=== PATIENT | male | born 1960 | race Two or more races ===

== ENCOUNTER 2024-01-14 11:00 | Outpatient (RCR) | payer MEDICAID, SELFPAY ==
--- NOTE | 2024-01-14 12:42 | CTCFLWUP_ITS ---
[facility] [address] [place], [place] [address] FOLLOW-UP NOTE Date: 01/14/2024 MR#: [id number] Name: JAMIE QUILES : 1960 Dx: M89.8X9 Other specified disorders of bone, unspecified site Identification. Patient with hypertension diabetes end-stage renal disease on hemodialysis for many years admitted to [facility] June 2023. Please see consult June 1623. It was noted that patient had ostial lesion of cranial vault hips right greater than left with mild a nemia of 10.5 elevated creatinine 8.2 EGFR 6 receiving dialysis. PTH considerably elevated 879 on and PSA low at 0.15. SPEP 07/10/2023 did not show significant abnormalities and no monoclonal proteins detected by immunofi xation studies. Bone survey 07/11/2023 subtle radiolucency in the intertrochanteric sup trochanteric regions both hips cranial vault and in sup trochanteric region right hip 26 mm. Due to renal failure imaging studies done without contrast with lumbar vertebral bodies pelvis showin g subtle radiolucency in skeletal survey as well as CT MRI. Repeat bone survey 12/19/2023 shows small circumscribed osteolytic lesions 3 mm 6 mm distal right hum erus, and absence of previously seen radiolucency in the trochanteric regions of both hips cranial va ult and right hip. Most recent labs including SPEP 12/25/2023 revealed mild elevation of alpha-1 globulin beta-2 globuli n and gammaglobulin. Beta-2 microglobulin's at 29.3 increased above normal with somewhat elevated im munoglobulin G and A. Patient appears reasonably comfortable not on any pain meds according to daughters present. Has good range of motion and can walk hesitantly but adequately. Assessment. 1. 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 2. Subtle bony lesions osteolytic type noted in cranial vault right hip sup trochanteric regions of both hips on admission in June this year.. Repeat bone survey 12/19/2023 shows general improvement wi th subtle lytic lesion in distal right humerus. 3. SPEP July 10, 2023 slight increase in alpha-1 globulin repeat 12/25/2023 mild elevation of alpha-1 globulin beta-2 globulin and gammaglobulin. No monoclonal proteins detected by immunofixation st udies and beta-2 microglobulin was elevated at 29.30. 4. Would like to have Dr. Copeland rn new graduate see this patient. Cc: Lavelle Verma MD Electronically signed by: Scottie Chadwick M.D. 01/14/2024 12:40 PM
== END 2024-01-25 23:59 | disposition home or self-care (01) ==
LOC: SCTC 11:00
PROVIDERS: PCP Family Medicine; Referring Provider Family Medicine; Visit Provider Radiology Therapeutic Radiology
DX: M89.8X8 Other specified disorders of bone, other site (principal); I12.0 Hypertensive chronic kidney disease with stage 5 chronic kidney disease or end stage renal disease; E11.22 Type 2 diabetes mellitus with diabetic chronic kidney disease; N18.6 End stage renal disease; Z99.2 Dependence on renal dialysis; R77.1 Abnormality of globulin
CPT/HCPCS: 99213; G0463

== ENCOUNTER → 2024-02-10 | Outpatient (CLI) | payer MEDICAID, SELFPAY ==
[2024-02-10 08:32] LABS: Basophils % (Auto) 1 % (0-2.5); Eosinophils # (Auto) 0.1 Thou/mm3 (0.0-0.5); Eosinophils % (Auto) 2 % (0-10); Hematocrit 43.6 % (41.0-53.0); Immature Granulocytes % (Auto) 0 % (0-0); Immature Granulocytes Auto 0.01 Thou/mm3 (0.00-0.00); Lymphocytes # (Auto) 0.8 Thou/mm3 (1.0-4.8); Lymphocytes % (Auto) 15 % (10-50); Mean Corpuscular HGB Conc 32.1 g/dl (31.0-37.0); Mean Corpuscular Hemoglobin 32.8 pg (25.0-35.0); Mean Corpuscular Volume 102 fL (80-100); Monocytes # (Auto) 0.3 Thou/mm3 (0.0-0.8); Monocytes % (Auto) 6 % (0-12); Neutrophils % (Auto) 77 % (37-80); Nucleated Red Blood Cell % 0 /100 WBC (0); Platelet Count 132 Thou/mm3 (140-440); RDW Standard Deviation 58.2 fL (35.1-43.9); Red Blood Count 4.27 Miln/mm3 (4.50-5.90); White Blood Count 5.3 Thou/mm3 (3.8-10.6)
[2024-02-10 08:35] LABS: INR 1.1 (0.9-1.3); Prothrombin Time 12.1 Seconds (9.0-12.2)
[2024-02-10 09:07] LABS: Albumin, Serum 3.8 gm/dL (3.4-4.8); Anion Gap 12 (7-16); BUN/Creatinine Ratio 8 Ratio (12-20); Blood Urea Nitrogen 75 mg/dL (9-23); Calcium 8.8 mg/dL (8.3-10.6); Carbon Dioxide 24.7 mMol/L (20.0-31.0); Chloride 96 mMol/L (98-107); Creatinine (Component) 9.5 mg/dL (0.6-1.3); Glucose 107 mg/dL (74-106); Osmolality,Calculated 288 (275-295); Phosphorous 6.6 mg/dL (2.4-5.1); Sodium 133 mMol/L (136-145); eGFR 6 See Note
== END | disposition home or self-care (01) ==
LOC: COPL 07:37
PROVIDERS: PCP Student in an Organized Health Care Education/Training Program; Referring Provider Internal Medicine Cardiovascular Disease; Visit Provider Internal Medicine Cardiovascular Disease
DX: I48.3 Typical atrial flutter (principal)
CPT/HCPCS: 36415; 80069; 85025; 85610

== ENCOUNTER 2024-02-11 08:47 | Outpatient (RCR) | payer MEDICAID, SELFPAY ==
--- NOTE | 2024-03-02 16:33 | CTCCONSULT_ITS ---
Patient: JAMIE QUILES : 1960 MR#: [id number] Page 2 of 3 CONSULTATION NOTE DATE OF CONSULTATION: 02/11/2024 NAME: JAMIE QUILES ACCOUNT: [id number] : 1960 AGE: 63 REFERRING PHYSICIAN: Dianne Lopez MD PRIMARY PHYSICIAN: Dianne Lopez MD REASON FOR VISIT: Osteolytic lesions suspicion for cancer ONCOLOGY HISTORY: DIAGNOSIS: Other specified disorders of bone, unspecified site [ICD10] M89.8X9 DATE OF DIAGNOSIS: No confirmed diagnosis STAGE/TNM: TREATMENT HISTORY: Care?Plan Start?Date Cycle Day Intent HISTORY OF PRESENT ILLNESS: 63-year-old male OTHER MEDICAL HISTORY/CONDITIONS: diabetic??end?stage?renal??chf fistula left arm eye lasic surg gallbladder FAMILY HISTORY: Patient?denies?family?cancer?history. SOCIAL HISTORY: Occupational?History:?disabled Education?Level:?Completed High School Marital?Status:? Tobacco?Pack?per?Day:?1 Tobacco?Use?Years:?15 ETOH Use:?etoh issues 15 clean / 13 yrs Drug?Note:?gladys Social History Note:?lives with his mother MEDICATIONS: 1. amlodipine - 5 mg 1 tab Twice a Day 2. CINACALCET HCL - 90 mg Daily 3. Eliquis - 2.5 mg Twice a Day 4. gabapentin - 800 mg 1 tab Twice a Day 5. metoprolol succinate - 25 mg Daily 6. sevelamer carbonate - 800 mg 1 tab Daily 7. Vitamin D3 - 1,000 unit 1 tab Daily Medications Last Reconciled by Kelli Snider RN on 02/11/2024 ALLERGIES: VANCOMYCIN HCL REVIEW OF SYSTEMS: A complete 14-point review of systems was performed and is negative except as noted in interval histo ry. PHYSICAL EXAMINATION: VITAL SIGNS: Temperature?96.7, B/P?130/83, Height?63?inches, Oxygen?Saturation?97% PAIN: 6 - Severe pain ECOG Performance Status: 0 - Asymptomatic and fully active GENERAL APPEARANCE: Appears well, in no apparent distress, appropriately interactive. HEENT: Normocephalic, no temporal wasting, normal conjunctiva, no scleral icterus, normal hearing, li ps without lesions, neck normal range of motion. CARDIOVASCULAR: Not assessed. PULMONARY: Normal respiratory effort, no respiratory distress or use of accessory muscles, speaking i n full sentences, no tachypnea. EXTREMITIES: No pedal edema or cyanosis. SKIN: Normal skin appearance. NEUROLOGIC: Alert and oriented x4. PSHYCHIATRIC: Appropriate affect, mood normal, behavior normal, intact thought and speech. LABORATORY DATA: I have personally reviewed and interpreted each of the patient?s relevant lab tests, abnormal finding s are below: Date 02/20/24 ??RETICULOCYTE?ABSOLUTE?AUTO?(Biln/L) 82.6?H ASSESSMENT/PLAN: Osteolytic lesions concerning for multiple myeloma Patient have osteolytic lesions on the CT scans Patient do not have confirmed diagnosis There is no paraproteinemia Will evaluate to see any underlying malignancy PET CT scan SPEP and serum amino pheresis Ferritin iron panel and reticulocyte count B12 and folic acid Bone marrow biopsy to evaluate for myeloma Bone marrow biopsy RETURN TO CLINIC: 2 to 3 weeks with the results BILLING AND COMPLIANCE: I reviewed external records from providers outside my specialty as summarized above. I spent a total of 50 minutes on this patient?s care on the day of their visit excluding time spent related to any bi lled procedures. This time includes time spent with the patient as well as time spent documenting in the medical record, reviewing patients records and tests, obtaining history, placing orders, communi cating with other healthcare professionals, counseling the patient, family or caregiver, and/or care coordination for the diagnoses above. Electronically Signed by: Jose C Craig MD T: 4:31 PM CC: PCP: Dianne Lopez Referring: Dianne Lopez This document was completed utilizing speech recognition software. Grammatical errors, random word in sertions, pronoun errors, and incomplete sentences are an occasional consequence of this system due t o software limitations, ambient noise, and hardware issues. Any formal questions or concerns about th e content, text or information contained within the body of this dictation should be directly address ed to the provider for clarification.
== END 2024-02-25 23:59 | disposition home or self-care (01) ==
LOC: SCTC 08:47
PROVIDERS: PCP Student in an Organized Health Care Education/Training Program; Referring Provider Student in an Organized Health Care Education/Training Program; Visit Provider Internal Medicine Hematology & Oncology
DX: M89.50 Osteolysis, unspecified site (principal)
CPT/HCPCS: 99212; G0463

== ENCOUNTER → 2024-02-20 | Outpatient (CLI) | payer MEDICAID, SELFPAY ==
[2024-02-20 11:16] LABS: Basophils % (Auto) 1 % (0-2.5); Eosinophils # (Auto) 0.1 Thou/mm3 (0.0-0.5); Eosinophils % (Auto) 2 % (0-10); Hemoglobin 13.6 g/dL (13.5-16.0); Immature Granulocytes % (Auto) 0 % (0-0); Immature Granulocytes Auto 0.02 Thou/mm3 (0.00-0.00); Immature Reticulocyte Fraction 21.3 % (2.3-13.4); Lymphocytes # (Auto) 1.1 Thou/mm3 (1.0-4.8); Lymphocytes % (Auto) 20 % (10-50); Mean Corpuscular HGB Conc 31.6 g/dl (31.0-37.0); Mean Corpuscular Hemoglobin 32.8 pg (25.0-35.0); Mean Corpuscular Volume 104 fL (80-100); Monocytes # (Auto) 0.3 Thou/mm3 (0.0-0.8); Monocytes % (Auto) 6 % (0-12); Neutrophils % (Auto) 71 % (37-80); Nucleated Red Blood Cell % 0 /100 WBC (0); Platelet Count 139 Thou/mm3 (140-440); RDW Standard Deviation 57.5 fL (35.1-43.9); Red Blood Count 4.15 Miln/mm3 (4.50-5.90); Reticulocyte Absolute Auto 82.6 Biln/L (25.0-75.0); Reticulocyte Hgb Content 39.6 pg (28.0-35.0); White Blood Count 5.6 Thou/mm3 (3.8-10.6)
[2024-02-20 11:42] LABS: Alanine Aminotransferase 13 U/L (10-49); Albumin/Globulin Ratio 1.1 (1.2-2.2); Alkaline Phosphatase 146 U/L (46-116); Anion Gap 14 (7-16); Aspartate Amino Transferase 19 U/L (0-34); BUN/Creatinine Ratio 6 Ratio (12-20); Bilirubin,Total 0.3 mg/dL (0.3-1.2); Blood Urea Nitrogen 56 mg/dL (9-23); Calcium 8.8 mg/dL (8.3-10.6); Calcium (Corrected) 8.8 mg/dL (8.5-10.1); Carbon Dioxide 21.6 mMol/L (20.0-31.0); Chloride 97 mMol/L (98-107); Creatinine (Component) 8.7 mg/dL (0.6-1.3); Globulin 3.5 gm/dL (2.3-3.5); Glucose 140 mg/dL (74-106); Osmolality,Calculated 283 (275-295); Potassium 4.9 mMol/L (3.4-5.1); Sodium 133 mMol/L (136-145); Total Protein 7.5 gm/dL (5.7-8.2); eGFR 6 See Note
[2024-02-20 11:44] LABS: Folate 7.94 ng/mL (>5.38); Vitamin B12 596 pg/mL (211-911)
[2024-02-20 11:58] LABS: Ferritin 1569 ng/mL (10.5-307.3); Total Iron Binding Capacity 211 mcg/dL (250-425)
[2024-02-20 12:14] LABS: Iron 86 mcg/dL (65-175); Percent Iron Saturation 40 % (20-55); Unsaturated Iron Binding 125 (225-295)
[2024-02-28 15:37] LABS: Albumin 3.6 g/dL (3.8-4.8); Alpha-1-Globulin 0.4 g/dL (0.2-0.3); Alpha-2-Globulin 0.6 g/dL (0.5-0.9); Beta-1-Globulin 0.4 g/dL (0.4-0.6); Beta-2-globulin 0.6 g/dL (0.2-0.5); Gamma Globulin 1.7 g/dL (0.8-1.7); Kappa Light Chain, Free 470.8 mg/L (3.3-19.4); Lambda Light Chain, Free 244.8 mg/L (5.7-26.3)
[2024-03-02 06:45] LABS: Kappa/Lambda, Free Ratio 1.92 (0.26-1.65); Protein, total, serum 7.2 g/dL (6.1-8.1)
== END | disposition home or self-care (01) ==
LOC: SCTO 10:36
PROVIDERS: PCP Physician Assistant; Referring Provider Internal Medicine Hematology & Oncology; Visit Provider Internal Medicine Hematology & Oncology
DX: M89.8X9 Other specified disorders of bone, unspecified site (principal)
CPT/HCPCS: 36415; 80053; 82232; 82607; 82728; 82746; 83521; 83540; 83550; 84155; 84165; 85025; 85046; 86334

== ENCOUNTER → 2024-03-16 | Outpatient (CLI) | payer MEDICAID, SELFPAY ==
[2024-03-16 14:57] LABS: Immature Reticulocyte Fraction 24.6 % (2.3-13.4); Reticulocyte % (Auto) 2.2 % (0.5-1.5); Reticulocyte Absolute Auto 87.7 Biln/L (25.0-75.0); Reticulocyte Hgb Content 36.3 pg (28.0-35.0)
[2024-03-16 15:16] LABS: Vitamin B12 670 pg/mL (211-911)
[2024-03-16 15:33] LABS: Ferritin 1567 ng/mL (10.5-307.3); Total Iron Binding Capacity 245 mcg/dL (250-425)
[2024-03-16 15:42] LABS: Iron 128 mcg/dL (65-175); Percent Iron Saturation 52 % (20-55); Unsaturated Iron Binding 117 (225-295)
[2024-03-17 03:11] LABS: Folate 9.48 ng/mL (>5.38)
[2024-03-24 13:49] LABS: Alpha-1-Globulin 0.4 g/dL (0.2-0.3); Alpha-2-Globulin 0.6 g/dL (0.5-0.9); Beta-1-Globulin 0.4 g/dL (0.4-0.6); Beta-2-globulin 0.5 g/dL (0.2-0.5); Gamma Globulin 1.8 g/dL (0.8-1.7); Lambda Light Chain, Free 257.2 mg/L (5.7-26.3)
[2024-03-25 06:44] LABS: Kappa/Lambda, Free Ratio 1.57 (0.26-1.65); Protein, total, serum 7.7 g/dL (6.1-8.1)
== END | disposition home or self-care (01) ==
LOC: SCTO 14:08
PROVIDERS: PCP Physician Assistant; Referring Provider Internal Medicine Hematology & Oncology; Visit Provider Internal Medicine Hematology & Oncology
DX: M89.8X9 Other specified disorders of bone, unspecified site (principal)
CPT/HCPCS: 36415; 82232; 82607; 82728; 82746; 83521; 83540; 83550; 84155; 84165; 85046; 86334

== ENCOUNTER → 2024-03-18 | Outpatient (CLI) | payer MEDICAID, SELFPAY ==
--- NOTE | 2024-03-18 10:30 | XR_ITS ---
Examination: MRI brain with intravenous contrast TECHNIQUE: Multiple axial sagittal coronal brain MRI images post intravenous administration 18 cc gadolinium Exam date and time: March 18, 2024 12:20 PM INDICATIONS: Diagnosis of the specified disorders of bone, diagnosis West Nile virus disease FINDINGS: Ventricles are normal in size No mass effect upon the ventricular system No effacement cortical sulcal markings The pituitary is not enlarged No abnormal enhancing cerebellar or cerebral lesions Cranial vault appears intact No disruption of the optic chiasm is noted IMPRESSION: No abnormal enhancing cerebellar or cerebral lesions
== END | disposition home or self-care (01) ==
LOC: SMRI 03-19 08:04
PROVIDERS: Referring Provider Internal Medicine Hematology & Oncology; Visit Provider Internal Medicine Hematology & Oncology
DX: M89.8X9 Other specified disorders of bone, unspecified site (principal)
CPT/HCPCS: 70552; A9579

== ENCOUNTER 2024-03-20 15:27 | Inpatient (IN) | payer MEDICAID, SELFPAY ==
[2024-03-20 15:28] VITALS: BMI 37.8
[2024-03-20 16:15] VITALS: BP 117/78; PULSE 96; RESP 18; TEMP 37.4; O2SAT 96
--- NOTE | 2024-03-20 16:37 | XR_ITS ---
Examination: CT brain head without contrast. 2-D sagittal coronal reconstructions Date and time of exam:March 20, 2024 at 1727 hours INDICATIONS: Dizziness episodes today COMPARISON: October 14, 2023 CTDI: vol (mGy):51.1 DLP: (mGycm):1044 Technique: Multiple CT axial sections of the brain have been obtained, 5 mm slice thickness. Contrast has not been administered. 2-D sagittal, coronal reconstructions have been obtained Low dose protocols were performed. One or more of the following dose reduction techniques were used; automated exposure control, adjustment of the mA and/or KV according to patient size, use of iterative reconstruction technique. Findings: No significant ventricular enlargement. 15 mm age indeterminate infarct left cerebellar hemisphere, axial image 34, not seen on the CT brain scan October 14, 2023 Intra-axial or extra-axial hemorrhage density is not seen. No mass effect or midline shift Basal cisterns are not remarkable. Fourth ventricle is midline. Cranial vault intact. Impression: Negative for acute hemorrhage, mass effect or midline shift Age indeterminate infarct left cerebellar hemisphere, consider brain MRI MRA without contrast, stroke protocol, follow-up
--- NOTE | 2024-03-20 16:37 | EDRME_ITS ---
Rapid Medical Screening Exam [facility] Arrival date/time: 03/20/24 15:27 63-year-old male presents emergency department with complaints of syncopal episode today status post dialysis. Also complaining of shortness of breath and chest pain. I have greeted and performed a focused initial assessment of this patient. I nitial appropriate labs ordered at this time. A comprehensive ED assessment and evaluation of the patient and analysis of all test and completion of medical decision making process will be conducted by additional ED provider. Chief Complaint: Weakness Time Seen by Provider: 03/20/24 15:40 Vital signs: Vital Signs Temperature 99.3 F 03/20/24 16:15 Pulse Rate 96 03/20/24 16:15 Respiratory Rate 18 03/20/24 16:15 Blood Pressure 117/78 03/20/24 16:15 Pulse Oximetry (%) 96 03/20/24 16:15 Oxygen Delivery Method Nasal Cannula 03/20/24 16:15 Oxygen Flow Rate 3 03/20/24 16:15
--- NOTE | 2024-03-20 16:37 | EKG_ITS ---
[facility] Test Date: 2024-03-20 Pat Name: JAMIE QUILES Department: Room: - Gender: Male Rn Labor Delivery: : 1960 Requested By: Becky Ellis ([facility]) Aryan Order Number: [id number] Reading MD: Becky Ellis ([facility]) Aryan Measurements Intervals [place] Rate: 97 P: NV: QRS: -46 QRSD: 98 T: 134 QT: 373 QTc: 474 Interpretive Statements SINUS RHYTHM WITH 2ND DEGREE AV BLOCK, MOBITZ TYPE II MARKED LEFT AXIS DEVIATION [QRS AXIS < -30] ANTEROSEPTAL MYOCARDIAL INFARCTION , OF INDETERMINATE AGE [40+ ms Q WAVE IN V1-V4] MODERATE T-WAVE ABNORMALITY, CONSIDER LATERAL ISCHEMIA [-0.1+ mV T WAVE IN I/aVL/V5/V6] Compared to ECG 11/02/2023 15:18:24 Left-axis deviation now present Atrial fibrillation no longer present Myocardial infarct finding still present T-wave abnormality still present Possible ischemia still present /store/S0/[id number]/ecg/[id number].pdf
--- NOTE | 2024-03-20 16:37 | XR_ITS ---
Examination: PA chest single view TECHNIQUE: Upright PA chest single view Exam date and time: March 20, 2024 at 1657 hours Comparison August 01, 2023 INDICATIONS: Syncopal episode today FINDINGS: Mild heart failure Mild enlargement cardiac contour with central vascular congestion and prominent overall vascular congestion Pneumonia at the lung bases with moderate to large bilateral pleural effusions Right internal jugular dialysis catheter tips SVC satisfactory position IMPRESSION: Mild heart failure Bibasilar pneumonia
[2024-03-20 16:56] LABS: Basophils % (Auto) 0 % (0-2.5); Eosinophils # (Auto) 0.1 Thou/mm3 (0.0-0.5); Eosinophils % (Auto) 1 % (0-10); Hematocrit 40.2 % (41.0-53.0); Hemoglobin 13.1 g/dL (13.5-16.0); Immature Granulocytes % (Auto) 0 % (0-0); Immature Granulocytes Auto 0.03 Thou/mm3 (0.00-0.00); Lymphocytes # (Auto) 0.6 Thou/mm3 (1.0-4.8); Lymphocytes % (Auto) 6 % (10-50); Mean Corpuscular HGB Conc 32.6 g/dl (31.0-37.0); Mean Corpuscular Hemoglobin 33.7 pg (25.0-35.0); Mean Corpuscular Volume 103 fL (80-100); Monocytes % (Auto) 10 % (0-12); Neutrophils % (Auto) 82 % (37-80); Nucleated Red Blood Cell % 0 /100 WBC (0); Platelet Count 120 Thou/mm3 (140-440); RDW Standard Deviation 57.7 fL (35.1-43.9); Red Blood Count 3.89 Miln/mm3 (4.50-5.90); White Blood Count 9.7 Thou/mm3 (3.8-10.6)
[2024-03-20 17:16] LABS: Alanine Aminotransferase 10 U/L (10-49); Albumin/Globulin Ratio 1.1 (1.2-2.2); Alkaline Phosphatase 157 U/L (46-116); Anion Gap 8 (7-16); Aspartate Amino Transferase 13 U/L (0-34); BUN/Creatinine Ratio 6 Ratio (12-20); Bilirubin,Total 0.4 mg/dL (0.3-1.2); Blood Urea Nitrogen 34 mg/dL (9-23); Calcium 8.6 mg/dL (8.3-10.6); Calcium (Corrected) 8.6 mg/dL (8.5-10.1); Chloride 94 mMol/L (98-107); Creatinine (Component) 5.9 mg/dL (0.6-1.3); Globulin 3.8 gm/dL (2.3-3.5); Glucose 166 mg/dL (74-106); Osmolality,Calculated 274 (275-295); Potassium 5.2 mMol/L (3.4-5.1); Sodium 131 mMol/L (136-145); Total Protein 7.8 gm/dL (5.7-8.2); eGFR 10 See Note
[2024-03-20 18:16] LABS: INR 1.2 (0.9-1.3); Partial Thromboplastin Time 29.3 Seconds (22.0-36.0); Prothrombin Time 12.7 Seconds (9.0-12.2)
[2024-03-20 21:58] LABS: Troponin I 0.085 ng/mL (0.0-0.045)
[2024-03-20 21:59] VITALS: BP 81/66; PULSE 98; RESP 24; O2SAT 92
--- NOTE | 2024-03-20 22:08 | PD.EDWEAK ---
ED Weakness RME/HPI General Chief complaint: Weakness Stated complaint: Weakness, SOB, CP, after dialysis today Time Seen by Provider: 03/20/24 15:40 Arrival date/time: 03/20/24 15:27 Limitations: no limitations RME / HPI RME / HPI Narrative: 03/20/24 15:27 63-year-old male presents emergency department with complaints of syncopal episode today status post dialysis. Also complaining of shortness of breath and chest pain. I have greeted and performed a focused initial assessment of this patient. Initial appropriate labs ordered at this time. A comprehensive ED assessment and evaluation of the patient and analysis of all test and completion of medical decision making process will be conducted by additional ED provider. ------- Dr. Dominguez's Main ED Evaluation: 63yo male with a history of ESRD on HD (MWF), DM, HTN, HLD, CAD s/p CABG with stents placed 07/2023, on 2L/O2 presents to the ED for a chief complaint of generalized weakness. Patient was dialyzed today. Daughter at bedside reports the patient's legs gave out at home after dialysis, reporting she caught him. No falls or injuries. Daughter was concerned, so she brought Patient reports associated chest pain x 2 months and a cough x 1 month. Daughter states the patient wears oxygen 17/09 due to being out of breath when he ambulates. No fever, chills or any other associated symptoms. Patient is not on blood thinners. Red Lead Burner is Dr. Reagan. Discount Clerk is Dr. Verma. Daughter notes the patient had an ablation on 03/12/24. Related Data Home Medications ?Medication ?Instructions ?Recorded ?Confirmed gabapentin 400 mg capsule 400 mg PO BID PAIN 08/03/19 11/02/23 acetaminophen 325 mg tablet 650 mg PO QDAY 10/19/23 11/02/23 (Tylenol) albuterol sulfate 2.5 mg/3 mL 2.5 mg inhalation Q4H PRN SOB 10/19/23 11/02/23 (0.083 %) solution for nebulization amiodarone 200 mg tablet 200 mg PO QDAY 10/19/23 10/28/23 atorvastatin 40 mg tablet (Lipitor) 40 mg PO QDAY 10/19/23 11/02/23 famotidine 20 mg tablet (Pepcid) 20 mg PO QDAY 10/19/23 11/02/23 insulin glargine 100 unit/mL 10 unit subcut QPM 10/19/23 11/02/23 subcutaneous solution insulin lispro 100 unit/mL 1 sliding scale dose subcut 10/19/23 11/02/23 subcutaneous solution (Humalog USEASDIRECTD U-100 Insulin) melatonin 3 mg tablet 3 mg PO HS PRN sleep 10/19/23 11/02/23 folic acid 400 mcg tablet 0.4 mg PO QDAY 10/28/23 11/02/23 ascorbic acid (vitamin C) 500 mg 500 mg PO QDAY 11/02/23 11/02/23 tablet Previous Rx's ?Medication ?Instructions ?Recorded ferrous sulfate 325 mg (65 mg 325 mg PO QDAY 1 month #30 tabs 10/19/23 iron) tablet Allergies Allergy/AdvReac Type Severity Reaction Status Date / Time vancomycin Allergy Severe Hives Verified 03/11/24 09:45 Review of Systems Review of Systems Systems Reviewed: All systems reviewed, normal except as documented ED Exam General Limitations: Present no limitations General appearance: Present alert and in no apparent distress Head Head exam: Present atraumatic Eye Eye exam: Present normal appearance, PERRL and EOMI ENT ENT exam: Present normal exam, normal oropharynx and mucous membranes moist Neck Neck exam: Present normal inspection, full ROM and trachea midline Chest Chest inspection: Present normal inspection and symmetric chest wall rise Respiratory Respiratory exam: Present normal lung sounds bilaterally Cardiovascular Cardiovascular exam: Present regular rate, normal rhythm and normal heart sounds Abdominal Exam Abdominal exam: Present soft and normal bowel sounds Extremities Exam Extremities exam: Present normal inspection and full ROM Back Exam Back exam: Present normal inspection and full ROM Neurological Exam Neurological exam: Present alert, oriented X3 and CN II-XII intact Psychiatric Psychiatric exam: Present normal affect and normal mood Skin Skin exam: Present warm, dry, intact and normal color Course Course Course Narrative: CXR is ordered for determining the etiology of weakness. Quality Measures none Orders Category Date Time Status Bedside Blood Glucose NOW Care 03/20/24 16:37 Active Photographer Scientific STAT Care 03/20/24 16:37 Active EKG (ED ONLY) *Do not use* NOW Care 03/20/24 16:[address] head/brain wo con Stat Exams 03/20/24 16:37 Completed EKG (ED Only) Stat Exams 03/20/24 16:37 Draft XR chest 1V portable Stat Exams 03/20/24 16:37 Completed CBC Stat Lab 03/20/24 16:48 Completed Comprehensive Metabolic Panel Stat Lab 03/20/24 16:48 Completed Drug Screen,Urine Stat Lab 03/20/24 16:37 Ordered Partial Thromboplastin Time Stat Lab 03/20/24 16:48 Completed Prothrombin Time with INR Stat Lab 03/20/24 16:48 Completed Troponin I Stat Lab 03/20/24 16:48 Completed Troponin I Stat Lab 03/20/24 21:14 Completed Vital Signs Vital signs: Vital Signs Temperature 99.3 F 03/20/24 16:15 Pulse Rate 96 03/20/24 16:15 Respiratory Rate 18 03/20/24 16:15 Blood Pressure 117/78 03/20/24 16:15 Pulse Oximetry (%) 96 03/20/24 16:15 Oxygen Delivery Method Nasal Cannula 03/20/24 16:15 Oxygen Flow Rate 3 03/20/24 16:15 Weakness MDM Narrative MDM Narrative:: HEART Score is 6, indicating the patient is at moderate risk for a cardiac event. Patient should be admitted for observation. Will consult an admission to the hospitalist. Patient data External records reviewed:: [facility] previous records (Per chart review, patient was seen here on 11/01/23 for acute hypotension.) Clinical information provided by:: patient Social determinants that could affect healthcare access:: none Patient has the following chronic illnesses:: type 2 diabetes mellitus, HTN, HLD, hypothyrodism, ESRD (MWF), and HFpEF 60%-65%, CAD post CABG with stents How is presenting disease/condition affected by chronic disease/condition?: caused by Evaluation data The following diagnostics were reviewed and interpreted by me:: lab results, radiology exam(s) and EKG tracing(s) Lab and/or radiology exams considered but not ordered:: none Interpretation Summary: CBC is normal, Sodium is slightly low at 131, Potassium is slightly elevated at 5.2, Creatinine is elevated at 5.9, Glucose is 166, initial troponin is elevated at 0.080, repeat troponin is 0.085, according to my interpretation. EKG done at 1643, NSR, rate of 97, nonspecific ST-T wave changes in the lateral leads, QTc: 474, no longer in aFib compared to previous EKG in 10/2023, according to my interpretation. ------ [facility] Report Signed Patient: JAMIE QUILES [facility]. Record#: [id number] Birthdate: 1960 Age/Sex: 63 / M Location: [facility]X Attending Dr: Ordering Physician: Becky Ellis Date of Service: 03/20/24 Procedure(s): XR chest 1V portable Accession Number(s): [id number] cc: Tez Peters MD; Becky Ellis~ Examination: PA chest single view TECHNIQUE: Upright PA chest single view Exam date and time: March 20, 2024 at 1657 hours Comparison August 01, 2023 INDICATIONS: Syncopal episode today FINDINGS: Mild heart failure Mild enlargement cardiac contour with central vascular congestion and prominent overall vascular congestion Pneumonia at the lung bases with moderate to large bilateral pleural effusions Right internal jugular dialysis catheter tips SVC satisfactory position IMPRESSION: Mild heart failure Bibasilar pneumonia Dictated By: Tez Peters MD Signed By: <Electronically signed by Tez Peters MD in OV> 03/20/24 1711 [facility] Report Signed Patient: JAMIE QUILES [facility]. Record#: [id number] Birthdate: 1960 Age/Sex: 63 / M Location: SERX Attending Dr: Ordering Physician: Becky Ellis Date of Service: 03/20/24 Procedure(s): CT head/brain wo con Accession Number(s): [id number] cc: Yared Linares MD; Tez Peters MD; Becky EllisP~ Examination: CT brain head without contrast. 2-D sagittal coronal reconstructions Date and time of exam:March 20, 2024 at 1727 hours INDICATIONS: Dizziness episodes today COMPARISON: October 14, 2023 CTDI: vol (mGy):51.1 DLP: (mGycm):1044 Technique: Multiple CT axial sections of the brain have been obtained, 5 mm slice thickness. Contrast has not been administered. 2-D sagittal, coronal reconstructions have been obtained Low dose protocols were performed. One or more of the following dose reduction techniques were used; automated exposure control, adjustment of the mA and/or KV according to patient size, use of iterative reconstruction technique. Findings: No significant ventricular enlargement. 15 mm age indeterminate infarct left cerebellar hemisphere, axial image 34, not seen on the CT brain scan October 14, 2023 Intra-axial or extra-axial hemorrhage density is not seen. No mass effect or midline shift Basal cisterns are not remarkable. Fourth ventricle is midline. Cranial vault intact. Impression: Negative for acute hemorrhage, mass effect or midline shift Age indeterminate infarct left cerebellar hemisphere, consider brain MRI MRA without contrast, stroke protocol, follow-up Dictated By: Tez Peters MD Signed By: <Electronically signed by Tez Peters MD in OV> 03/20/24 1806 Medications / Prescriptions Medications or Prescriptions considered but not ordered:: none Medication administrations:: see above Consultations Consultation(s) initiated? (list below): Yes Consultation #1 (Physician, Specialty, Details): Discussed case with [Dr. Sainz] from Hospitalist service regarding admission. Discussed patients ED course, exam findings, labs, and radiology results. The Hospitalist [agrees] to accept the patient for admission. Time: 22:27 Diagnosis Weakness Differential Diagnosis: other (arrhythmia, STEMI, ischemia, electrolyte abnormality, CHF) Most likely diagnosis given after review of the tests above:: syncope, chest pain Admission Indicated Admission indicated?: indicated Admission Request Was there a request for admission?: Yes Admission Attestation Admission request attestation: Discussed case with [] from Hospitalist service regarding admission. Discussed patients ED course, exam findings, labs, and radiology results. The Hospitalist [agrees,declines] to accept the patient for admission. Disposition Plan Disposition Plan: Admit Discharge Plan Prescriptions/Referrals Prescriptions/Med Rec: No Action gabapentin 400 MG capsule 400 mg PO BID ascorbic acid (vitamin C) 500 mg Tablet 500 mg PO QDAY atorvastatin [Lipitor] 40 mg Tablet 40 mg PO QDAY acetaminophen [Tylenol] 325 mg Tablet 650 mg PO QDAY insulin glargine 100 unit/mL Solution 10 unit SUBCUT QPM albuterol sulfate 2.5 mg /3 mL (0.083 %) Solution For Nebulization 2.5 mg INHALATION Q4H PRN (Reason: SOB) amiodarone 200 mg Tablet 200 mg PO QDAY melatonin 3 mg Tablet 3 mg PO HS PRN (Reason: sleep) famotidine [Pepcid] 20 mg Tablet 20 mg PO QDAY insulin lispro [Humalog U-100 Insulin] 100 unit/mL Solution 1 sliding scale dose SUBCUT USEASDIRECTD ferrous sulfate 325 mg (65 mg iron) tablet 325 mg PO QDAY 30 Days Qty: 30 1RF Hold Instructions: unable to verify. Re evaluate with PCP folic acid 400 mcg Tablet 0.4 mg PO QDAY Referrals: Yared Linares MD [Primary Care Provider] - In 1 week Problem List Clinical Impression: Syncope, Chest pain Patient/Caregiver Discharge Instructions Print Language: Bol[place]ian
[2024-03-20 22:34] VITALS: BP 102/67; PULSE 98; RESP 19; TEMP 36.9; O2SAT 94
--- NOTE | 2024-03-20 22:55 | PC.NURSE ---
PT BROUGHT TO ER BY FAMILY FOR COMPLAINTS OF WEAKNESS, COUGH AND SOB. PER DAUGHTER AT BEDSIDE PT POSSIBLY PASSED OUT TODAY AFTER DIALYSIS. PT WAS STANDING AND LEGS GOT WEAK AND GAVE OUT. PT REPORTS CHEST HURTS ONLY WHEN COUGHING. COMPLAINTS OF COUGH X3 MONTHS. PT DOES DIALYSIS M-W-F, LAST WENT TODAY.
--- NOTE | 2024-03-20 23:44 | ESHP_ITS ---
Documentation for date of: 03/20/24 HPI History of Present Illness Chief complaint: syncopal episode History of present illness: HPI: Patient is a Kenyan-speaking 63-year-old male. Interview facilitated by registered healthcare photographer helper. Patient is a 63-year-old male with a past medical history significant for ESRD on HD [M/W/F], essential hypertension, insulin-dependent diabetes mellitus type 2, hyperlipidemia, CAD s/p CABG with stents [08/19/2023], HFpEF [60-65%] on 2L home O2 presenting with a chief complaint of a syncopal episode. According to patient's daughter at bedside he went to his dialysis session today and he felt weak after. However he still carried about his daily routine as usual. He went to visit his daughter at his 's house and was sitting in the car talking to her. He said he did not feel well but still proceeded to get out of the car, upon standing he started to feel dizzy and held on to the car for support. Subsequently he took 2 steps forward and his daughter had to catch him as he had fainted. She put him to sit in the car and after approximately 1 minute he regained consciousness, but was confused about what happened. Endorsed dizziness and weakness prior to the event which has now improved. Denies any chest pain/pressure, palpitations, vomiting, diarrhea, sick contacts, fever, headaches. Of note patient had an episode of syncope November 2023 and pneumonia December 2023 for which he was hospitalized for. After his last episode of syncope he was started on midodrine 10 Mg p.o. twice daily. ED course: BP 117/78, pulse 96, RR 18, temp 30 9.3F, SpO2 96% on 3L NC. Labs significant for Hb 13.1, HCT 40.2, NA 131, K5.2, BUN 34, CR 5.9, troponin I 0.08---> 0.085 On imaging chest x-ray significant for bilateral consolidation at bases, pulmonary edema and bibasilar pleural effusion. R IJ catheter in situ. Head CT was negative for any acute hemorrhage, mass effect or midline shift. Age-indeterminate left cerebellar hemisphere infarct. EKG significant for sinus rhythm, second-degree AV block, Q waves in anteroseptal leads. QTc [address] changes. In the ED patient received DuoNebs x 1. Will be admitted for workup and management of syncope and community-acquired pneumonia. Nephrology, Dr Verma consulted. Appreciate recommendations Review of Systems Review of Systems Narrative Review of Systems: GENERAL: Denies fever/chills or diaphoresis. HEENT: Denies headaches or visual changes. Denies discharge. Neuro: Denies unusual weakness or difficulty speaking. CARDIO: Denies chest pain or palpitations. PULM: Has a chronic cough for the past 1 month, baseline SOB worse over the past month GI: Denies abdominal pain, N/V/C/D. Reports having BMs. URO: Denies burning/itching/pain/urinary changes. MSK/EXT/SKIN: Denies joint/skeletal/muscle pain, issues/changes in upper or lower extremities, itchiness, or superficial pain. PSYCH: Cooperative, pleasant mood & affect. The rest of the review of systems is otherwise negative. Past Medical History Past Medical History Comments PMH COMMENT: Past medical history: ? ESRD on HD [M/W/F] ? Insulin-dependent diabetes mellitus type 2 ? Essential hypertension ? Hyperlipidemia ? CAD s/p CABG and stents [08/15/2023] ? Atrial fibrillation s/p ablation 03/12/2024 ? History of West Nile virus 2014 Medication list: ? Gabapentin 800 Mg p.o. daily ? Sevelamer 800 Mg p.o. daily ? Ferrous sulfate 325 Mg p.o. every other day ? Lisinopril 40 Mg p.o. twice daily ? Midodrine 10 Mg p.o. twice daily ? Veltassa 8.4 g p.o. daily ? Atorvastatin 40 Mg p.o. at bedtime ? Aspirin 81 Mg p.o. daily Past surgical history: ? CABG?2023 ? 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 Has 3 kids Tobacco use: Approximately 50-[id number]-[id number] smoking history ETHO use: Denies Illicit drug use: Denies Social History Note: Lives alone with his mother. At baseline ambulates without assistance but sometimes uses a walker. Needs assistance with self-care. Exam Vital Signs Temp Pulse Resp BP Pulse Ox O2 Del Method O2 Flow Rate 98.4 F 98 19 102/67 94 L Nasal Cannula 2 03/20/24 22:34 03/20/24 22:34 03/20/24 22:34 03/20/24 22:34 03/20/24 22:34 03/20/24 22:34 03/20/24 22:34 Narrative Exam Constitutional Alert, oriented x 3 and comfortable. Elderly male, appears much older than his age, on O2 via NC. HEENT Vision grossly intact. Patent nares. Trachea midline Respiratory RIJ catheter in situ, exit site clean, decreased air entry in all lung chin with crackles at bases bilaterally Cardiovascular S1 and S2 audible, RRR. No murmurs carotid bruit. No gross JVD. Abdominal Soft, obese and non tender to palpation in all quadrants. BS + Genitourinary No bladder tenderness, no flank pain. Normal to palpation Musculoskeletal Extremities tone within normal limits. No LE edema. Neurological CN II - XII grossly intact. Extremity motor and sensation grossly intact. Skin Warm, dry and intact. Thrombosed left radial AV fistula Psychiatric Patient has good affect, is cooperative Results: Labs 03/21/24 04:49 03/20/24 16:48 Labs: Short CBC 03/20/24 Range/Units 16:48 WBC 9.7 (3.8-10.6) Thou/mm3 Hgb 13.1 L (13.5-16.0) g/dL Hct 40.2 L (41.0-53.0) % Plt Count 120 L (140-440) Thou/mm3 BMP 03/20/24 16:48 Sodium 131 L Potassium 5.2 H Chloride 94 L Carbon Dioxide 29.0 BUN 34 H Creatinine 5.9 H* Glucose 166 H Calcium 8.6 Cardiac Enzymes 03/20/24 03/20/24 Range/Units 16:48 21:14 Troponin I 0.080 H* 0.085 H* (0.0-0.045) ng/mL Liver Function 03/20/24 Range/Units 16:48 Total Bilirubin 0.4 (0.3-1.2) mg/dL AST 13 (0-34) U/L ALT 10 (10-49) U/L Alkaline Phosphatase 157 H (46-116) U/L Albumin 4.0 (3.4-4.8) gm/dL Quality Measures Quality Measures none Medications Home Medications and Allergies Home Medications ?Medication ?Instructions ?Recorded ?Confirmed ?Type gabapentin 400 mg capsule 400 mg PO BID PAIN 08/03/19 03/21/24 History acetaminophen 325 mg tablet 650 mg PO QDAY 10/19/23 03/21/24 History (Tylenol) albuterol sulfate 2.5 mg/3 mL 2.5 mg inhalation Q4H PRN SOB 10/19/23 03/21/24 History (0.083 %) solution for nebulization amiodarone 200 mg tablet 200 mg PO QDAY 10/19/23 03/21/24 History atorvastatin 40 mg tablet (Lipitor) 40 mg PO QDAY 10/19/23 03/21/24 History famotidine 20 mg tablet (Pepcid) 20 mg PO QDAY 10/19/23 03/21/24 History insulin glargine 100 unit/mL 10 unit subcut QPM 10/19/23 03/21/24 History subcutaneous solution insulin lispro 100 unit/mL 1 sliding scale dose subcut 10/19/23 03/21/24 History subcutaneous solution (Humalog USEASDIRECTD U-100 Insulin) melatonin 3 mg tablet 3 mg PO HS PRN sleep 10/19/23 03/21/24 History folic acid 400 mcg tablet 0.4 mg PO QDAY 10/28/23 03/21/24 History ascorbic acid (vitamin C) 500 mg 500 mg PO QDAY 11/02/23 03/21/24 History tablet Allergies Allergy/AdvReac Type Severity Reaction Status Date / Time vancomycin Allergy Severe Hives Verified 03/11/24 09:45 Assessment & Plan Plan Patient is a 63-year-old male with a past medical history significant for ESRD on HD [M/W/F], essential hypertension, insulin-dependent diabetes mellitus type 2, hyperlipidemia, CAD s/p CABG with stents [08/19/2023], HFpEF [60-65%] on 2L home O2 presenting with a chief complaint of a syncopal episode. Will be admitted for workup and management of syncope and community-acquired pneumonia. 1. Syncopal episode for investigation Patient had a syncopal episode following dialysis today. [place] dizzy upon standing and subsequently blacked out. DDx: Orthostatic hypotension, vasovagal syncope, cardiogenic syncope Plan: ? Orthostatic vitals ?Transthoracic echocardiogram to assess for wall motion abnormalities, valvular defects and ejection fraction ? Midodrine 10 Mg p.o. twice daily 2. Likely community-acquired pneumonia 3. Influenza A and B+ Patient has a worsening cough for the past month productive of white to yellow sputum. On exam patient has decreased air entry globally with bibasilar crackles On imaging chest x-ray significant for bilateral consolidation at bases, pulmonary edema and bibasilar pleural effusion. R IJ catheter in situ. PSI/PORT : 101 points. Risk class IV. Hospitalization recommended based on risk Plan: ? Supplemental O2 as necessary ? Sputum culture and Gram stain ? Oseltamivir 30 Mg p.o. x 1 ? Ceftriaxone 1 g IV daily started on [03/21? ? DuoNebs Q2 hourly as needed ? Guaifenesin 200 Mg p.o. 4 times daily as needed for cough 4. HFpEF [60 to 65%] 5. CAD s/p CABG with stents [08/15/2023] 6. NSTEMI type 1 vs type 2 Patient has baseline SOB at rest and is on 2L home O2 Last transthoracic echocardiogram completed on 07/11/2023 findings include: Estimated EF 60 to 65%. Mild RV dilation. Severe biatrial dilatation. Ascending aorta mildly dilated at 3.5 cm. Awaiting medication reconciliation NYHA stage D class IV On admission Troponin 0.08 ---> 0.085 EKG significant for sinus rhythm, second-degree AV block, Q waves in anteroseptal leads. QTc [address] changes. Plan: ? Strict input output charting ? 1500 cc/day fluid restriction ? Renal/cardiac diet ? Daily weights - Repeat Troponin at 5 am 7. Atrial fibrillation s/p ablation [03/12/2024] Patient had ablation earlier this month Unsure if still on rate control/anticoagulation, awaiting medication reconciliation. EKG significant for sinus rhythm, second-degree AV block, Q waves in anteroseptal leads. QTc [address] changes. Vascor is still high. Plan: ? Day team to decide on resumption of anticoagulation/rate control 8. ESRD on HD [M/W/] Patient dialyzes via right IJ catheter. Recently his left radial AV fistula became thrombosed and he is awaiting vascular surgery consult for possible thrombectomy. His captain/check airman is Dr. Verma. Plan: ? Renally dose medication ? Avoid nephrotoxic agents ? Nephrology, Dr Luci consulted. Appreciate recommendations 9. Insulin-dependent diabetes mellitus type 2 No recent HbA1c seen on file Uncertain of home medications, awaiting reconciliation. Plan: ? HbA1c ordered ? SSI to cover for any blood glucose spikes 10. Essential hypertension Patient normotensive on admission Plan: ? Antihypertensives on hold for now Health maintenance: Disposition: Syncope workup. IV antibiotics for pneumonia. Nephro consult Diet: Renal Lines: pIVs GI Prophylaxis: Pantoprazole Thrombo Prophylaxis: Heparin Code status: FULL CODE Plan of care discussed with Attending Dr. Alistair Delgado MD PGY 1 Attending Provider Attestation/Addendum I have discussed and was present for the essential components of the history, physical examination, diagnosis, and treatment plan with the resident. I agree with the patient's care as documented by the resident and amended herein by me. Grey Sainz DO. Although this document has been carefully reviewed, there may still be some phonetic and other typographical errors. These errors are purely grammatical due to imperfections in the software program and should not be construed in any way to compromise the substance of the patient's medical care during this visit.
--- NOTE | 2024-03-20 23:49 | ECHO_ITS ---
Transthoracic Echo Report Ht (in): 64 Wt (lb): 220 Exam Location: Echo Lab Status: Emergency Grinding Wheel Operator: Paulette Durbin Indications: Procedure Performed: BP: 100 / 69 HR: 100 Technical Quality: Technically difficult study MEASUREMENTS (Male / Female) Normal Values 2D ECHO LV Diastolic Diameter PLAX 4.2 cm 4.2 - 5.9 / 3.9 - 5.3 cm LV Systolic Diameter PLAX 3.1 cm IVS Diastolic Thickness 1.2 cm 0.6 - 1.0 / 0.6 - 0.9 cm LVPW Diastolic Thickness 1.2 cm 0.6 - 1.0 / 0.6 - 0.9 cm LV Relative Wall Thickness 0.6 LV Ejection Fraction MOD BP 65.2 % >= 55 % LV Cardiac Index MOD BP 4298.9 cm?/min?m? LV Ejection Fraction MOD 4C 66.9 % LV Cardiac Index MOD 4C 4469.3 cm?/min?m? LV Ejection Fraction 4C AL 66.8 % LV Cardiac Index 4C AL 4507.9 cm?/min?m? LV Ejection Fraction MOD 2C 64.7 % LV Cardiac Index MOD 2C 3515.6 cm?/min?m? LV Ejection Fraction 2C AL 66.4 % LV Cardiac Index 2C AL 3730.4 cm?/min?m? LA Volume Index 32.4 cm?/m? 16 - 28 cm?/m? M-MODE Aortic Root Diameter MM 1.8 cm LA Systolic Diameter MM 5.5 cm LA Ao Ratio MM 3.1 AV Cusp Separation MM 1.6 cm DOPPLER AV Peak Velocity 135.0 cm/s AV Peak Gradient 7.3 mmHg AV Mean Gradient 4.0 mmHg AV Velocity Time Integral 25.7 cm LVOT Peak Velocity 89.4 cm/s LVOT Peak Gradient 3.2 mmHg LVOT Velocity Time Integral 15.4 cm MV Peak Velocity 128.0 cm/s MV Peak Gradient 6.6 mmHg MV Mean Velocity 62.4 cm/s MV Mean Gradient 2.0 mmHg MR Peak Velocity 323.0 cm/s MR Peak Gradient 41.7 mmHg TR Peak Velocity 325.0 cm/s TR Peak Gradient 42.3 mmHg PV Peak Velocity 90.9 cm/s PV Peak Gradient 3.3 mmHg FINDINGS Left Ventricle Normal left ventricular size, wall thickness, systolic function with no obvious regional wall motion abnormalities. Normal left ventricular diastolic filling pattern for age. The ejection fraction is v isually estimated at 60 %. Right Ventricle The right ventricle is normal in size and systolic function. The estimated right ventricular systoli c pressure, 52 mmHg. RAP 15. Left Atrium The left atrium is normal by two-dimensional, color flow and Doppler imaging with no structural abnormalities, no thrombus formation present. Right Atrium The right atrium is normal by two-dimensional imaging, color flow and Doppler imaging with no struct ural abnormalities, no thrombus formation present. Atrial Septum The interatrial septum appears normal with no evidence of a shunt. Aorta The aorta is normal by two-dimensional, color flow and Doppler interrogation. Mitral Valve The mitral valve is normal by two-dimensional, color flow and Doppler interrogation. There is trace mitral valve regurgitation, stenosis or prolapse. Aortic Valve The aortic valve is trileaflet and normal by two-dimensional, color flow and Doppler interrogation. There is no significant aortic valve regurgitation. Tricuspid Valve The tricuspid valve is normal by two-dimensional, color flow and Doppler interrogation. There is mod erate tricuspid valve regurgitation. Pulmonic Valve The pulmonic valve is not well visualized. There is trace pulmonic valve regurgitation. Vessels Dilated inferior vena cava. Pericardium The pericardium is normal by two-dimensional imaging. There is no significant pericardial effusion. CONCLUSIONS Indication: Syncope Normal LV size and function. Estimated 60-65% Normal RV size and function. Estimated RVSP 52 mmHg with RAP 15. Moderately elevated RVSP. Trace MR and PI. Moderate TR. Dilated IVC. Jay Padgett (Electronically Signed) Final Date: 23 March 2024 12:29
[2024-03-21] VITALS (15 sets, daily range): BP systolic 100–118; BP diastolic 69–84; PULSE 86–101; RESP 16–28; TEMP 36.2–36.8; O2SAT 92–99; BMI 35.4; BMI 37.0
[2024-03-21] MEDS: ALBUTEROL/IPRATROPIUM (Duoneb) RT SOL 3 ML NEBU INH ×3 (00:35→15:58)
[2024-03-21] MEDS: HEPARIN SOD INJ 5000 UNIT/ML VIAL SC ×3 (00:37→21:19)
--- NOTE | 2024-03-21 00:47 | PC.NURSE ---
Report received by Kimberly LEMON
[2024-03-21] MEDS: OSELTAMIVIR 30 MG CAPSULE PO (01:57)
[2024-03-21] MEDS: cefTRIAXone/D5w 1gm IV premix 50 ML IV ×2 (01:58→21:20)
--- NOTE | 2024-03-21 05:07 | PC.RT ---
Sputum culture collected and sent to lab for analysis.
[2024-03-21 05:51] LABS: Basophils % (Auto) 0 % (0-2.5); Eosinophils # (Auto) 0.1 Thou/mm3 (0.0-0.5); Eosinophils % (Auto) 1 % (0-10); Hematocrit 37.7 % (41.0-53.0); Hemoglobin 12.2 g/dL (13.5-16.0); Immature Granulocytes % (Auto) 0 % (0-0); Immature Granulocytes Auto 0.02 Thou/mm3 (0.00-0.00); Lymphocytes # (Auto) 0.7 Thou/mm3 (1.0-4.8); Lymphocytes % (Auto) 9 % (10-50); Mean Corpuscular HGB Conc 32.4 g/dl (31.0-37.0); Mean Corpuscular Hemoglobin 33.9 pg (25.0-35.0); Mean Corpuscular Volume 105 fL (80-100); Monocytes # (Auto) 0.9 Thou/mm3 (0.0-0.8); Monocytes % (Auto) 12 % (0-12); Neutrophils # (Auto) 5.9 Thou/mm3 (1.8-7.7); Neutrophils % (Auto) 78 % (37-80); Nucleated Red Blood Cell % 0 /100 WBC (0); Platelet Count 106 Thou/mm3 (140-440); RDW Standard Deviation 57.4 fL (35.1-43.9); White Blood Count 7.6 Thou/mm3 (3.8-10.6)
[2024-03-21 06:08] LABS: Glucose Estimated Average 163 mg/dL (80-131); Hemoglobin A1C 7.3 % Hgb (4.8-6.0)
[2024-03-21 06:40] LABS: Alanine Aminotransferase 8 U/L (10-49); Albumin, Serum 3.8 gm/dL (3.4-4.8); Albumin/Globulin Ratio 1.1 (1.2-2.2); Alkaline Phosphatase 139 U/L (46-116); Anion Gap 11 (7-16); Aspartate Amino Transferase < 10 U/L (0-34); BUN/Creatinine Ratio 7 Ratio (12-20); Bilirubin,Total 0.4 mg/dL (0.3-1.2); Blood Urea Nitrogen 47 mg/dL (9-23); Calcium 8.6 mg/dL (8.3-10.6); Calcium (Corrected) 8.8 mg/dL (8.5-10.1); Carbon Dioxide 28.3 mMol/L (20.0-31.0); Cardiac Risk Estimate 2.5 RATIO (4.0-6.7); Chloride 94 mMol/L (98-107); Cholesterol 109 mg/dL (132-200); Creatinine (Component) 6.9 mg/dL (0.6-1.3); Estimated Creatinine Clearance 11.9 mL/min (>60); Globulin 3.5 gm/dL (2.3-3.5); Glucose 161 mg/dL (74-106); HDL Cholesterol 43 mg/dL (40-60); LDL Cholesterol,Calculated 49 mg/dL (0-130); Magnesium 2.2 mg/dL (1.6-2.6); Osmolality,Calculated 281 (275-295); Phosphorous 4.6 mg/dL (2.4-5.1); Potassium 4.9 mMol/L (3.4-5.1); Sodium 133 mMol/L (136-145); Thyroid Stimulating Hormone 0.39 uIU/mL (0.55-4.78); Total Protein 7.3 gm/dL (5.7-8.2); Triglycerides 83 mg/dL (30-150); eGFR 8 See Note
[2024-03-21 06:42] LABS: Troponin I 0.081 ng/mL (0.0-0.045)
[2024-03-21] MEDS: SEVELAMER CARBONATE 800 MG TABLET PO (09:10)
[2024-03-21] MEDS: PANTOPRAZOLE 40 MG TABLET PO (09:10)
[2024-03-21] MEDS: SENNA TABLET 1 TAB PO (09:10)
[2024-03-21] MEDS: ASPIRIN EC 81 MG TABEC PO (09:10)
[2024-03-21] MEDS: MIDODRINE 5 MG TABLET 10 MG PO ×2 (09:11→21:20)
[2024-03-21] MEDS: PATIROMER CALCIUM 8.4 GM PACKET (NON-FORM) PO (09:11)
[2024-03-21 09:36] LABS: Free T4 (Free Thyroxine) 1.41 ng/dL (0.89-1.76)
--- NOTE | 2024-03-21 09:55 | PD.NEPHCONS ---
History of Present Illness Data of Consult Consult date: 03/21/24 Requesting Physician: Seth Sainz DO Primary Care Provider: Yared Linares MD Consult Narrative Reason for consult: ESRD History of present illness: Daughter is the informant. Patient currently seen in telemetry. Mr. Clarke is a 63-year-old gentleman with a past medical history significant for ESRD on HD [M/W/F], essential hypertension, insulin-dependent diabetes mellitus type 2, hyperlipidemia, A. fib, recurrent episodes of hyperkalemia, renal osteodystrophy, CAD s/p CABG with stents [08/19/2023], HFpEF [60-65%] on 2L home O2 presenting with a chief complaint of a syncopal episode. Patient apparently went to his dialysis session yesterday and postdialysis was having significant weakness dizziness and fainted. Was brought to the ED for further evaluation. Patient had similar episodes last year and was hospitalized. Was discharged with midodrine-deemed to be related to orthostatic hypotension. In the emergency department his blood pressure 117/78, heart rate 96. On 3 L oxygen. Labs showed hemoglobin 13.1, sodium 131, potassium 5.2, BUN 34, creatinine 5.9, troponin 0.08. Chest x-ray showed fluid overload, pneumonia. CT brain negative. EKG showed AV block second-degree. Patient was started on breathing treatments, antibiotics and admitted with a diagnosis of pneumonia/hypoxic respiratory failure. Nephrology consultation was requested for need for dialysis. Home medications included Tylenol, albuterol, amiodarone, L-ascorbic acid, Lipitor, Pepcid, iron, folic acid, gabapentin, insulin, midodrine, Veltassa, sevelamer cc:: cc: Seth Sainz DO Review of Systems Review of Systems Narrative Review of Systems: CONSTITUTIONAL: Patient denies any fever, chills. Complaining of fatigue HEENT: Denies any visual disturbances or hearing problems. CARDIOVASCULAR: Patient denies any chest pain. c/o shortness of breath, swelling in the lower extremities. PULMONARY: Patient c/o wheezing, shortness of breath, cough. GASTROINTESTINAL: Patient denies any abdominal pain, constipation, nausea, vomiting, diarrhea. GENITOURINARY: Decreased urination SKIN: Denies any rash. MUSCULOSKELETAL: Denies any muscular skeletal problems of joint pains. NEUROLOGICAL: Denies any neurological problems of strokes, seizures or confusion. Denies any memory problems. PSYCHIATRIC: Denies any depression or anxiety. LYMPHATICS : No lymphadenopathy Past Medical History Past Medical History NEUROLOGIC: Positive Neurological Disorders, Cerebrovascular Accident (2021), Seizures and Peripheral Neuropathy CARDIAC: Positive Cardiac Disorders, Atrial Fibrillation, Coronary Artery Disease, Hypercholesterolemia, Congestive Heart Failure, Edema and Hypertension; Negative Varicose Veins RESPIRATORY: Positive Chronic Obstructive Pulmonary Disease (COPD) (use oxygen) and Pneumonia GASTROINTESTINAL: Positive Gastrointestinal Disorders, Gall Bladder Disease and Gastroesophageal Reflux Disease; Negative Hepatitis, Gastrointestinal Bleed, Diverticulitis, Diverticulosis, Ulcer, Colorectal Cancer, Hiatal Hernia or Obesity GENITOURINARY: Positive Genitourinary Disorders, Renal Disease and Dialysis (MWF); Negative Prostate Cancer REPRODUCTIVE: Negative Testicular Cancer MUSCULOSKELETAL: Positive Musculoskeletal Disorders, Bone Cancer (?) and Arthritis; Negative Gout, Scoliosis, Carpal Tunnel Syndrome or Fibromyalgia ENT: Positive Cataracts and Glaucoma; Negative Retinal Detachment or Macular Degeneration ENDOCRINE: Positive Endocrine Disorders, Diabetes Mellitus Type 2 and Hypothyroidism; Negative Diabetes Mellitus Type 1 HEMATOLOGIC: Positive Anemia; Negative Blood Disorders OTHER HISTORY: Positive Hospitalization, Falls, Blood Transfusions and Measles; Negative Autoimmune Disease, Shingles, Blood Transfusion Reaction, Anesthesia Reactions, Chemotherapy, Radiation Therapy, MRSA, Chicken Pox, Mumps, Pertussis, Cancer, Colorectal Cancer, Lung Cancer, Prostate Cancer or Testicular Cancer Family History FAMILY HISTORY: Positive Family Cardiac Disorders (father) and Family Surgery; Negative Family Psychiatric Problems, Family Respiratory Disorders, Family Gastrointestinal Problems, Family Cancer or Family Anesthesia Reaction Surgical History SURGICAL: Positive Cardiac Surgery, Vascular Surgery and Eye Surgery; Negative Open Heart Surgery, Coronary Artery Bypass Graft, Valve Replacement, Coronary Stent, Cardiac Catheterization, Pacemaker, Angiogram, Auto Implanted Cardiovert Defib, Carotid Endarterectomy, Ear Surgery, Tympanostomy Tube, Nose Surgery, Oral Surgery, Tonsillectomy, Adenoidectomy, Cochlear Implant, Corneal Transplant, Throat Surgery, Abdominal Surgery, Tracheostomy, Gastric Bypass Surgery, Gastrostomy, Bowel Surgery, Nephrectomy, Transurethral Resection, Joint Replacement, Amputation, Open Reduction Internal Fixation, Arthroscopy, Neurologic Surgery, Brain Shunt or Vasectomy Social History SMOKING STATUS: Current every day smoker SECOND HAND EXPOSURE: No SUBSTANCE USE: does not use Past Medical History Comments PMH COMMENT: Past medical history: ? ESRD on HD [M/W/F] ? Insulin-dependent diabetes mellitus type 2 ? Essential hypertension ? Hyperlipidemia ? CAD s/p CABG and stents [08/15/2023] ? Atrial fibrillation s/p ablation 03/12/2024 ? History of West Nile virus 2014 Medication list: ? Gabapentin 800 Mg p.o. daily ? Sevelamer 800 Mg p.o. daily ? Ferrous sulfate 325 Mg p.o. every other day ? Lisinopril 40 Mg p.o. twice daily ? Midodrine 10 Mg p.o. twice daily ? Veltassa 8.4 g p.o. daily ? Atorvastatin 40 Mg p.o. at bedtime ? Aspirin 81 Mg p.o. daily Past surgical history: ? CABG?2023 ? 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 Has 3 kids Tobacco use: Approximately [id number] smoking history ETHO use: Denies Illicit drug use: Denies Social History Note: Lives alone with his mother. At baseline ambulates without assistance but sometimes uses a walker. Needs assistance with self-care. Meds Home Medications and Allergies Home Medications ?Medication ?Instructions ?Recorded ?Confirmed ?Type gabapentin 400 mg capsule 400 mg PO BID PAIN 08/03/19 03/21/24 History acetaminophen 325 mg tablet 650 mg PO QDAY 10/19/23 03/21/24 History (Tylenol) albuterol sulfate 2.5 mg/3 mL 2.5 mg inhalation Q4H PRN SOB 10/19/23 03/21/24 History (0.083 %) solution for nebulization amiodarone 200 mg tablet 200 mg PO QDAY 10/19/23 03/21/24 History atorvastatin 40 mg tablet (Lipitor) 40 mg PO QDAY 10/19/23 03/21/24 History famotidine 20 mg tablet (Pepcid) 20 mg PO QDAY 10/19/23 03/21/24 History insulin glargine 100 unit/mL 10 unit subcut QPM 10/19/23 03/21/24 History subcutaneous solution insulin lispro 100 unit/mL 1 sliding scale dose subcut 10/19/23 03/21/24 History subcutaneous solution (Humalog USEASDIRECTD U-100 Insulin) melatonin 3 mg tablet 3 mg PO HS PRN sleep 10/19/23 03/21/24 History folic acid 400 mcg tablet 0.4 mg PO QDAY 10/28/23 03/21/24 History ascorbic acid (vitamin C) 500 mg 500 mg PO QDAY 11/02/23 03/21/24 History tablet Allergies Allergy/AdvReac Type Severity Reaction Status Date / Time vancomycin Allergy Severe Hives Verified 03/11/24 09:45 Exam Vital Signs Temp Pulse Resp BP Pulse Ox O2 Del Method O2 Flow Rate 36.8 C 100 20 100/69 96 Nasal Cannula 2 03/21/24 08:00 03/21/24 09:11 03/21/24 08:57 03/21/24 09:11 03/21/24 08:57 03/21/24 08:00 03/21/24 08:57 Narrative Exam GENERAL APPEARANCE: Patient seems short of breath. Currently respiratory isolation room. On oxygen. Daughter at bedside. NECK: Neck supple, no JVD or bruit CARDIOVASCULAR: Heart regular, no murmurs LUNGS/CHEST:Bilateral rhonchi, wheezing ABDOMEN: Soft, nontender, nondistended. No masses. Normal bowel sounds. EXTREMITIES: 2+ edema in the lower extremities SKIN: Skin exam normal without any rashes / ++ AVF MUSCULOSKELETAL: Musculoskeletal exam normal PSYCHIATRIC: Normal mood, affect LYMPHATICS: No lymphadenopathy noted NEUROLOGICAL : No neurological deficits Results Labs 03/22/24 05:36 03/22/24 05:36 Labs: Short CBC 03/20/24 03/21/24 Range/Units 16:48 04:49 WBC 9.7 7.6 (3.8-10.6) Thou/mm3 Hgb 13.1 L 12.2 L (13.5-16.0) g/dL Hct 40.2 L 37.7 L (41.0-53.0) % Plt Count 120 L 106 L (140-440) Thou/mm3 BMP 03/20/24 03/21/24 16:48 04:49 Sodium 131 L 133 L Potassium 5.2 H 4.9 Chloride 94 L 94 L Carbon Dioxide 29.0 28.3 BUN 34 H 47 H Creatinine 5.9 H* 6.9 H* D Glucose 166 H 161 H Calcium 8.6 8.6 Cardiac Enzymes 03/20/24 03/20/24 03/21/24 Range/Units 16:48 21:14 04:49 Troponin I 0.080 H* 0.085 H* 0.081 H* (0.0-0.045) ng/mL Liver Function 03/20/24 03/21/24 Range/Units 16:48 04:49 Total Bilirubin 0.4 0.4 (0.3-1.2) mg/dL AST 13 < 10 (0-34) U/L ALT 10 8 L (10-49) U/L Alkaline Phosphatase 157 H 139 H (46-116) U/L Albumin 4.0 3.8 (3.4-4.8) gm/dL Assessment & Plan Additional Assessment & Plan Additional Plan: 1) ESRD (end stage renal disease) on dialysis: Status: Acute ESRD secondary to diabetic nephropathy. Patient goes to dialysis Saturday, Saturday, Saturday. Next dialysis scheduled for tomorrow-if noted fluid overload (2) hypoxic respiratory failure- secondary to pneumonia/CHF - on oxygen, antibiotics, breathing treatments If needed will do extra session tomorrow (3) Renal osteodystrophy: Status: Acute On Sensipar. Calcium levels normal (4) Hypotension-could be the cause for syncope Status: Acute Currently on midodrine (5) Diabetes: Status: Acute Accu-Cheks, sliding scale, diabetic diet (6) Anemia in chronic kidney disease (CKD): Status: Acute Epogen given with dialysis. 7) new onset atrial fibrillation Status: Acute Cardiology on the case. Rate control, anticoagulation ordered Thank you Dr. Sainz for allowing me to participate in the care of Mr. Clarke Spoke to primary team
[2024-03-21] MEDS: INSULIN LISPRO (AdmeLOG) 1 UNIT/0.01 ML UNIT SC ×2 (11:29→21:19)
--- NOTE | 2024-03-21 13:52 | ESPR_ITS ---
Documentation for date of: 03/21/24 Subjective Subjective Interval history: Patient seen today at the bedside fine awake, alert, oriented x 3. No overnight events reported. States no active complaints at this time. When speaking to the patient patient denies having loss of consciousness at any point in time however it is very likely patient does not remember. Syncope likely secondary to fluid shifts in the setting of dialysis. Troponins already peaked will no longer need to trend. Echocardiogram still pending. Orthostatic vitals taken negative at this time. At this time we will continue with Tamiflu for influenza A as well as ceftriaxone for community-acquired pneumonia. Exam Vital Signs Temp Pulse Resp BP Pulse Ox O2 Del Method O2 Flow Rate 98.2 F 96 21 H 105/70 95 Nasal Cannula 2 03/21/24 12:00 03/21/24 12:00 03/21/24 12:00 03/21/24 12:00 03/21/24 12:00 03/21/24 12:00 03/21/24 12:00 Narrative Exam Physical Exam GENERAL: NAD, AAOx3 HEENT: Moist mucosa. Eyes open, symmetrical, & clear, right IJ HD catheter CARDIO: Heart RRR, no obvious murmurs PULM: No noted coughing/dyspnea, bilateral crackles with decreased air entry GI: Abdomen soft, nondistended, no pain on palpation. BSx4 SKIN/MSK/EXT: Thrombosed left radial fistula, no pain on palpation. Pedal pulses present B/L NEURO: AAOx3, no focal neuro deficits, able to move all 4 extremities Objective Labs 03/22/24 05:36 03/22/24 05:36 Labs: Laboratory Results - last 24 hr 03/20/24 03/20/24 03/21/24 16:48 21:14 04:49 WBC 9.7 7.6 RBC 3.89 L 3.60 L Hgb 13.1 L 12.2 L Hct 40.2 L 37.7 L MCV 103 H 105 H MCH 33.7 33.9 MCHC 32.6 32.4 RDW Std Deviation 57.7 H 57.4 H Plt Count 120 L 106 L Neut % (Auto) 82 H 78 Lymph % (Auto) 6 L 9 L Woods % (Auto) 10 12 Eos % (Auto) 1 1 Baso % (Auto) 0 0 Neut # (Auto) 8.0 H 5.9 Lymph # (Auto) 0.6 L 0.7 L Woods # (Auto) 1.0 H 0.9 H Eos # (Auto) 0.1 0.1 Baso # (Auto) 0.0 0.0 Immature Gran # (Auto) 0.03 H 0.02 H Absolute Nucleated RBC 0.00 0.00 Immature Gran % 0 0 Nucleated RBC % 0 0 PT 12.7 H INR 1.2 APTT 29.3 Sodium 131 L 133 L Potassium 5.2 H 4.9 Chloride 94 L 94 L Carbon Dioxide 29.0 28.3 Anion Gap 8 11 BUN 34 H 47 H Creatinine 5.9 H* 6.9 H* D Estim Creat Clear Calc 14.0 L 11.9 L eGFR 10 L* 8 L* BUN/Creatinine Ratio 6 L 7 L Glucose [address] Glu mg/dL 163 H Hemoglobin A1c 7.3 H Calculated Osmolality 274 L 281 Calcium 8.6 8.6 Corrected Calcium 8.6 8.8 Phosphorus 4.6 Magnesium 2.2 Total Bilirubin 0.4 0.4 AST 13 < 10 ALT 10 8 L Alkaline Phosphatase 157 H 139 H Troponin I 0.080 H* 0.085 H* 0.081 H* Total Protein 7.8 7.3 Albumin 4.0 3.8 Globulin 3.8 H 3.5 Albumin/Globulin Ratio 1.1 L 1.1 L Triglycerides 83 Cholesterol 109 L LDL Cholesterol, Calc 49 HDL Cholesterol 43 Cholesterol/HDL Ratio 2.5 L TSH 0.39 L Free T4 1.41 Quality Measures Quality Measures none Assessment & Plan Assessment Current Active Medications: Generic Name Dose Route Start Last Admin Trade Name Freq PRN Reason Stop Dose Admin Acetaminophen 650 mg 03/21/24 10:34 Acetaminophen 325 Mg Tablet PO 04/19/24 23:43 Q6H PRN Fever >100.3 or pain Hydrocodone Bitart/Acetaminophen 1 tab 03/20/24 23:44 Hydrocodone/Apap 5/325 Tablet PO 03/25/24 23:43 Q4HR PRN PAIN SCALE 4-10(Mod-Sev Albuterol/Ipratropium 3 ml 03/20/24 23:44 03/21/24 04:57 Albuterol/Ipratropium (Duoneb) Rt Denise 3 Ml Nebu INH 04/19/24 23:43 3 ml Q2HR PRN Administration SHORTNESS OF BREATH OR WHEEZE Aspirin 81 mg 03/21/24 09:00 03/21/24 09:10 Aspirin Ec 81 Mg Tabec PO 04/20/24 08:59 81 mg QDAY LIZETH Administration Dextrose 50 ml 03/20/24 23:51 Dextrose 50%-Water Inj 50 Ml Syringe IV 04/19/24 23:50 Q15MIN PRN BG <50 OR BG <70 & pt unresponsive Glucagon 1 mg 03/20/24 23:51 Glucagon Inj 1 Mg Vial IM Q15MIN PRN BG <70, and no IV access Guaifenesin 200 mg 03/21/24 04:35 Guaifenesin Syrup 200 Mg/10 Ml Udc PO 04/20/24 04:34 QID PRN cough/ congestion Protocol Heparin Sodium (Porcine) 5,000 unit 03/20/24 23:45 03/21/24 09:11 Heparin Sod Inj 5000 Unit/Ml Vial SC 04/03/24 23:44 5,000 unit BID LIZETH Administration Ceftriaxone Sodium/Dextrose 50 mls @ 100 mls/hr 03/21/24 21:00 Rocephin/D5w 1gm Iv Premix IV 03/28/24 20:59 QDAY@2100 LIZETH Insulin Human Lispro 0 unit 03/21/24 07:30 03/21/24 11:29 Insulin Lispro (Admelog) 1 Unit/0.01 Ml Unit SC 04/20/24 07:29 2 unit ACHS LIZETH Administration Protocol Midodrine 10 mg 03/21/24 09:00 03/21/24 09:11 Midodrine 5 Mg Tablet PO 04/20/24 08:59 10 mg BID LIZETH Administration Ondansetron HCl 4 mg 03/20/24 23:44 Ondansetron Inj 2 Mg/Ml Inj 2 Ml IV 04/19/24 23:43 Q6H PRN NAUSEA OR VOMITING Protocol Pantoprazole Sodium 40 mg 03/21/24 09:00 03/21/24 09:10 Pantoprazole 40 Mg Tablet PO 04/20/24 08:59 40 mg QDAY LIZETH Administration Patiromer 8.4 gm 03/21/24 09:00 03/21/24 09:11 Patiromer Calcium 8.4 Gm Packet (Non-Form) PO 04/20/24 08:59 8.4 gm DAILY LIZETH Administration Sennosides 1 tab 03/21/24 09:00 03/21/24 09:10 Senna Tablet PO 04/20/24 08:59 1 tab QDAY LIZETH Administration Protocol Sevelamer Carbonate 800 mg 03/21/24 09:00 03/21/24 09:10 Sevelamer Carbonate 800 Mg Tablet PO 04/20/24 08:59 800 mg DAILY LIZETH Administration Plan 63-year-old male with a past medical history significant for ESRD on HD [M/W/F], essential hypertension, insulin-dependent diabetes mellitus type 2, hyperlipidemia, CAD s/p CABG with stents [08/19/2023], HFpEF [60-65%] on 2L home O2 presenting with a chief complaint of a syncopal episode. Will be admitted for workup and management of syncope and community-acquired pneumonia. #Syncopal episode Likely secondary to fluid shifts from hemodialysis Patient had a syncopal episode following dialysis today. [place] dizzy upon standing and subsequently blacked out. Patient does not recall having fainted or blacked out however patient likely forgot as per family members DDx: Orthostatic hypotension, vasovagal syncope, cardiogenic syncope Orthostatic vitals are negative at this time ?Echo ordered and pending ? Midodrine 10 Mg p.o. twice daily #Community-acquired pneumonia #Influenza A and B+ Patient has a worsening cough for the past month productive of white to yellow sputum. On exam patient has decreased air entry globally with bibasilar crackles On imaging chest x-ray significant for bilateral consolidation at bases, pulmonary edema and bibasilar pleural effusion. R IJ catheter in situ. PSI/PORT : 101 points. Risk class IV. Hospitalization recommended based on risk ? Supplemental O2 as necessary ? Sputum culture and Gram stain ? Oseltamivir 30 Mg p.o. x 1 ? Ceftriaxone 1 g IV daily started on [03/21? ? DuoNebs Q2 hourly as needed ? Guaifenesin 200 Mg p.o. 4 times daily as needed for cough #HFpEF [60 to 65%] #CAD s/p CABG with stents [08/15/2023] #NSTEMI type 1 vs type 2 Patient has baseline SOB at rest and is on 2L home O2 Echo from 07/11/2023 showed Estimated EF 60 to 65%. Mild RV dilation. Severe biatrial dilatation. Ascending aorta mildly dilated at 3.5 cm. Lipid panel unremarkable NYHA stage D class IV On admission Troponin 0.08 ---> 0.085-->0.081 EKG significant for sinus rhythm, second-degree AV block, Q waves in anteroseptal leads. QTc [address] changes. - No need to continue to trend troponins ? Strict input output ? 1500 cc/day fluid restriction ? Daily weights #Atrial fibrillation s/p ablation [03/12/2024] Patient had ablation earlier this month EKG significant for sinus rhythm, second-degree AV block, Q waves in anteroseptal leads. QTc [address] changes. CHADVASC score 3 -Resumed amiodarone 200 mg daily as taken at home #ESRD on HD [//] Patient dialyzes via right IJ catheter. Recently his left radial AV fistula became thrombosed and he is awaiting vascular surgery consult for possible thrombectomy. His activities therapist is Dr. Verma. ? Renally dose medication ? Avoid nephrotoxic agents ? Nephrology, Dr Verma consulted. Appreciate recommendations #Insulin-dependent diabetes mellitus type 2 #Diabetic neuropathy A1c 7.3, at home patient uses 10 units of glargine -SSI -Hypoglycemia protocol in place -Atorvastatin 40 mg resumed as taken at home -Resume gabapentin as taken at home #Essential hypertension Patient normotensive on admission Patient currently blood pressure on the softer side -Will hold off on resuming antihypertensives at this time Case discussed with my attending Dr. Sara Linares MD PGY-1 Disposition: Med telemetry Fluids: None Feeding: Renal Thrombo prophylaxis: Heparin Gastric Ulcer prophylaxis: Pantoprazole CODE STATUS: Full code Attending Provider Attestation/Addendum 63-year-old male with multiple comorbidities including a-fib s/p ablation, hypertension, type 2 diabetes mellitus, hyperlipidemia with subsequent CAD status post stent placement, heart failure with preserved EF and heart failure with preserved EF with EF 60-65% on 2 L supplemental oxygen at home who presented to the ER after he was noted to have a syncopal episode. In addition, patient also noted to have acute hypoxic respiratory failure secondary to fluid overload state and community-acquired pneumonia as well as influenza A and B. As of now, plan to continue Rocephin, azithromycin and Tamiflu. Currently, patient is on 3L supplemental oxygen and will need HD today. I reviewed above note and agree with findings and plans. I have also personally examined the patient with medicine team and went over assessment and plan with medical team including internet marketing analyst and resident physician.
[2024-03-21] MEDS: ATORVASTATIN CALCIUM 20 MG TABLET 40 MG PO (14:24)
[2024-03-21] MEDS: AMIODARONE HCL 200 MG TABLET PO (14:24)
[2024-03-21 15:14] LABS: Cocci Serology, IgM Negative (Negative)
--- NOTE | 2024-03-21 15:52 | PC.SS ---
Vince Lopez is a 63-year-old male admitted to [facility] for Syncopal Episode. SS conducted bedside contact with the patient to complete initial assessment and to discuss discharge planning, pt resting therefore SS made contact with his dtr Argelia Reyes [phone]. Argelia was able to confirm demographic information. She identifies herself as his surrogate decision maker. Patient resides at home with his . Pt is able to complete all ADL?s independently, has a walker, cane and wheelchair. Pts PCP is DANYELLE Gonzáles (last visit about 1 weeks ago), Automotive Engineering Teacher is Luci LANCASTER on M, W, F at [facility] and pharmacy of choice is [facility] on [address]. DC option discussed and fam wishes for the pt to return home. Pts family will provide transportation upon DC. No further intervention required at this time, social work specialist would be available to address any further concerns.
[2024-03-21] MEDS: GABAPENTIN 100 MG, GABAPENTIN 300 MG 400 MG PO (21:20)
--- NOTE | 2024-03-21 22:45 | PC.NURSE ---
pt. care transferred to [facility] room 264, report given to nurse, pt. is AAOX3, pt is in no sign of distress, VSS, on 2L NC, all belongings transferred with pt.
[2024-03-22] VITALS (25 sets, daily range): BP systolic 84–134; BP diastolic 62–96; PULSE 91–102; RESP 17–25; TEMP 35.9–36.6; O2SAT 92–99; BMI 37.0
[2024-03-22 06:33] LABS: Basophils % (Auto) 1 % (0-2.5); Eosinophils # (Auto) 0.2 Thou/mm3 (0.0-0.5); Eosinophils % (Auto) 3 % (0-10); Hematocrit 37.5 % (41.0-53.0); Immature Granulocytes % (Auto) 0 % (0-0); Immature Granulocytes Auto 0.02 Thou/mm3 (0.00-0.00); Lymphocytes # (Auto) 0.8 Thou/mm3 (1.0-4.8); Lymphocytes % (Auto) 13 % (10-50); Mean Corpuscular Hemoglobin 33.7 pg (25.0-35.0); Mean Corpuscular Volume 105 fL (80-100); Monocytes # (Auto) 0.7 Thou/mm3 (0.0-0.8); Monocytes % (Auto) 12 % (0-12); Neutrophils % (Auto) 70 % (37-80); Nucleated Red Blood Cell % 0 /100 WBC (0); Platelet Count 114 Thou/mm3 (140-440); RDW Standard Deviation 57.6 fL (35.1-43.9); Red Blood Count 3.56 Miln/mm3 (4.50-5.90); White Blood Count 5.7 Thou/mm3 (3.8-10.6)
[2024-03-22 07:29] LABS: Alanine Aminotransferase 8 U/L (10-49); Albumin, Serum 3.9 gm/dL (3.4-4.8); Albumin/Globulin Ratio 1.1 (1.2-2.2); Alkaline Phosphatase 135 U/L (46-116); Anion Gap 11 (7-16); Aspartate Amino Transferase 10 U/L (0-34); BUN/Creatinine Ratio 8 Ratio (12-20); Bilirubin,Total 0.3 mg/dL (0.3-1.2); Blood Urea Nitrogen 66 mg/dL (9-23); Calcium 8.6 mg/dL (8.3-10.6); Calcium (Corrected) 8.7 mg/dL (8.5-10.1); Chloride 92 mMol/L (98-107); Creatinine (Component) 8.4 mg/dL (0.6-1.3); Estimated Creatinine Clearance 9.8 mL/min (>60); Globulin 3.6 gm/dL (2.3-3.5); Glucose 122 mg/dL (74-106); Magnesium 2.4 mg/dL (1.6-2.6); Osmolality,Calculated 278 (275-295); Phosphorous 6.2 mg/dL (2.4-5.1); Potassium 4.9 mMol/L (3.4-5.1); Sodium 129 mMol/L (136-145); Total Protein 7.5 gm/dL (5.7-8.2); eGFR 7 See Note
[2024-03-22] MEDS: ALBUTEROL/IPRATROPIUM (Duoneb) RT SOL 3 ML NEBU INH ×2 (07:39→22:59)
[2024-03-22] MEDS: ASPIRIN EC 81 MG TABEC PO (08:30)
[2024-03-22] MEDS: PANTOPRAZOLE 40 MG TABLET PO (08:30)
[2024-03-22] MEDS: ATORVASTATIN CALCIUM 20 MG TABLET 40 MG PO (08:30)
[2024-03-22] MEDS: GABAPENTIN 100 MG, GABAPENTIN 300 MG 400 MG PO ×2 (08:30→21:51)
[2024-03-22] MEDS: SENNA TABLET 1 TAB PO (08:30)
[2024-03-22] MEDS: SEVELAMER CARBONATE 800 MG TABLET PO ×3 (08:30→17:21)
[2024-03-22] MEDS: AMIODARONE HCL 200 MG TABLET PO (08:31)
[2024-03-22] MEDS: HEPARIN SOD INJ 5000 UNIT/ML VIAL SC ×2 (08:32→21:38)
[2024-03-22] MEDS: PATIROMER CALCIUM 8.4 GM PACKET (NON-FORM) PO (08:35)
--- NOTE | 2024-03-22 10:30 | CHAP ---
Patient was visited by the Spiritual Care Volunteer who prayed for them. (Volunteer was in the hospital from c10:10-11:20).
[2024-03-22] MEDS: INSULIN LISPRO (AdmeLOG) 1 UNIT/0.01 ML UNIT SC ×3 (11:19→21:38)
--- NOTE | 2024-03-22 13:11 | PD.NEPHPROG ---
Documentation for date of: 03/22/24 Subjective Subjective Interval history: Daughter is the informant. Patient currently seen in telemetry. Mr. Clarke is a 63-year-old gentleman with a past medical history significant for ESRD on HD [M/W/F], essential hypertension, insulin-dependent diabetes mellitus type 2, hyperlipidemia, A. fib, recurrent episodes of hyperkalemia, renal osteodystrophy, CAD s/p CABG with stents [08/19/2023], HFpEF [60-65%] on 2L home O2 presenting with a chief complaint of a syncopal episode. Patient apparently went to his dialysis session yesterday and postdialysis was having significant weakness dizziness and fainted. Was brought to the ED for further evaluation. Patient had similar episodes last year and was hospitalized. Was discharged with midodrine-deemed to be related to orthostatic hypotension. In the emergency department his blood pressure 117/78, heart rate 96. On 3 L oxygen. Labs showed hemoglobin 13.1, sodium 131, potassium 5.2, BUN 34, creatinine 5.9, troponin 0.08. Chest x-ray showed fluid overload, pneumonia. CT brain negative. EKG showed AV block second-degree. Patient was started on breathing treatments, antibiotics and admitted with a diagnosis of pneumonia/hypoxic respiratory failure. Nephrology consultation was requested for need for dialysis. Home medications included Tylenol, albuterol, amiodarone, L-ascorbic acid, Lipitor, Pepcid, iron, folic acid, gabapentin, insulin, midodrine, [place], sevelamer 03/22/2024 patient currently seen in telemetry. Noted sitting in the edge of the bed and leaning forward with shortness of breath. Lung exam showed he is in fluid overload. Unable to lay flat. Decided to proceed with extra dialysis today. Blood pressure 134/92, heart rate 94, respiratory 23. Blood sugar 149. Hemoglobin 12, white count 5.7, platelets 114. Sodium 129, potassium 4.9, BUN 66, creatinine 8.4, glucose 122, calcium 8.7, magnesium 2.4, phosphorus 6.2, LFTs normal, albumin 3.9. Review of Systems Review of Systems Narrative Review of Systems: CONSTITUTIONAL: Patient denies any fever, chills. Complaining of fatigue HEENT: Denies any visual disturbances or hearing problems. CARDIOVASCULAR: Patient denies any chest pain. c/o shortness of breath, swelling in the lower extremities. PULMONARY: Patient c/o wheezing, shortness of breath, cough. GASTROINTESTINAL: Patient denies any abdominal pain, constipation, nausea, vomiting, diarrhea. GENITOURINARY: Decreased urination SKIN: Denies any rash. MUSCULOSKELETAL: Denies any muscular skeletal problems of joint pains. NEUROLOGICAL: Denies any neurological problems of strokes, seizures or confusion. Denies any memory problems. PSYCHIATRIC: Denies any depression or anxiety. LYMPHATICS : No lymphadenopathy Exam Vital Signs Temp Pulse Resp BP Pulse Ox O2 Del Method O2 Flow Rate 36.5 C 94 23 H 134/92 H 96 Nasal Cannula 3 03/22/24 20:00 03/22/24 20:00 03/22/24 20:00 03/22/24 20:00 03/22/24 20:00 03/22/24 20:00 03/22/24 20:00 Narrative Exam GENERAL APPEARANCE: Patient is short of breath. On oxygen. On dialysis NECK: Neck supple, no JVD or bruit CARDIOVASCULAR: Heart regular, no murmurs LUNGS/CHEST:Bilateral rhonchi, wheezing ABDOMEN: Soft, nontender, nondistended. No masses. Normal bowel sounds. EXTREMITIES: 2+ edema in the lower extremities SKIN: Skin exam normal without any rashes / ++ AVF MUSCULOSKELETAL: Musculoskeletal exam normal PSYCHIATRIC: Normal mood, affect LYMPHATICS: No lymphadenopathy noted NEUROLOGICAL : No neurological deficits Objective Labs 03/22/24 05:36 03/22/24 05:36 Labs: Laboratory Results - last 24 hr 03/22/24 05:36 WBC 5.7 RBC 3.56 L Hgb 12.0 L Hct 37.5 L MCV 105 H MCH 33.7 MCHC 32.0 RDW Std Deviation 57.6 H Plt Count 114 L Neut % (Auto) 70 Lymph % (Auto) 13 [place] % (Auto) 12 Eos % (Auto) 3 Baso % (Auto) 1 Neut # (Auto) 4.0 Lymph # (Auto) 0.8 L [place] # (Auto) 0.7 Eos # (Auto) 0.2 Baso # (Auto) 0.0 Immature Gran # (Auto) 0.02 H Absolute Nucleated RBC 0.00 Immature Gran % 0 Nucleated RBC % 0 Sodium 129 L Potassium 4.9 Chloride 92 L Carbon Dioxide 26.0 Anion Gap 11 BUN 66 H Creatinine 8.4 H* D Estim Creat Clear Calc 9.8 L eGFR 7 L* BUN/Creatinine Ratio 8 L Glucose 122 H Calculated Osmolality 278 Calcium 8.6 Corrected Calcium 8.7 Phosphorus 6.2 H Magnesium 2.4 Total Bilirubin 0.3 AST 10 ALT 8 L Alkaline Phosphatase 135 H Total Protein 7.5 Albumin 3.9 Globulin 3.6 H Albumin/Globulin Ratio 1.1 L Assessment & Plan Additional Assessment & Plan Additional Plan: 1) ESRD (end stage renal disease) on dialysis: Status: Acute ESRD secondary to diabetic nephropathy. Patient goes to dialysis Saturday, Saturday, Saturday. Patient currently seen on dialysis. Tolerating dialysis without any problems. Hemodialysis for 2.5 hours, 2K, ultrafiltration 2-3 L, Epogen 6000, no heparin ordered. Plan of care discussed with the dialysis nurse. Please see dialysis flowsheet for further details. Next dialysis scheduled for tomorrow-if noted fluid overload (2) hypoxic respiratory failure- secondary to pneumonia/CHF - on oxygen, antibiotics, breathing treatments If needed will do extra session tomorrow (3) Renal osteodystrophy: Status: Acute On Sensipar. Calcium levels normal (4) Hypotension-could be the cause for syncope Status: Acute Currently on midodrine (5) Diabetes: Status: Acute Accu-Cheks, sliding scale, diabetic diet (6) Anemia in chronic kidney disease (CKD): Status: Acute Epogen given with dialysis. 7) atrial fibrillation Status: Acute Rate control, anticoagulation ordered Thank you Dr. Sainz for allowing me to participate in the care of Mr. Clarke Spoke to primary team
[2024-03-22] MEDS: MIDODRINE 5 MG TABLET 10 MG PO (13:27)
--- NOTE | 2024-03-22 13:47 | ESPR_ITS ---
Documentation for date of: 03/22/24 Subjective Subjective Interval history: The patient is evaluated today at bedside, reported difficulty breathing when lying flat, was seen sitting up at the side of bed due to shortness of breath, currently seen on 3 L oxygen saturating well, physical exam pertinent for bilateral rhonchi and pleural rub. Maintaining vitals on midodrine 10 mg, 3 times daily. Noted increased phosphorus, sevelamer was increased to 3 times daily. Reached out to supervisor [employer] Dr Verma for urgent hemodialysis today in addition to scheduled M/W/F. Exam Vital Signs Temp Pulse Resp BP Pulse Ox O2 Del Method O2 Flow Rate 96.7 F L 97 18 116/86 H 96 Nasal Cannula 3 03/22/24 12:00 03/22/24 13:27 03/22/24 12:00 03/22/24 13:27 03/22/24 12:00 03/22/24 12:00 03/22/24 12:00 Narrative Exam Physical Exam GENERAL: In mild respiratory distress, AAOx3, sitting at the side of the bed HEENT: Moist mucosa. Eyes open, symmetrical, & clear, right IJ HD catheter CARDIO: Heart RRR, no obvious murmurs PULM: Bilateral rhonchi, pleural rub bilaterally GI: Abdomen soft, nondistended, no pain on palpation. BSx4 SKIN/MSK/EXT: Thrombosed left radial fistula, no pain on palpation. Pedal pulses present B/L NEURO: AAOx3, no focal neuro deficits, able to move all 4 extremities Objective Labs 03/22/24 05:36 03/22/24 05:36 Labs: Laboratory Results - last 24 hr 03/21/24 03/22/24 08:37 05:36 WBC 5.7 RBC 3.56 L Hgb 12.0 L Hct 37.5 L MCV 105 H MCH 33.7 MCHC 32.0 RDW Std Deviation 57.6 H Plt Count 114 L Neut % (Auto) 70 Lymph % (Auto) 13 [place] % (Auto) 12 Eos % (Auto) 3 Baso % (Auto) 1 Neut # (Auto) 4.0 Lymph # (Auto) 0.8 L [place] # (Auto) 0.7 Eos # (Auto) 0.2 Baso # (Auto) 0.0 Immature Gran # (Auto) 0.02 H Absolute Nucleated RBC 0.00 Immature Gran % 0 Nucleated RBC % 0 Sodium 129 L Potassium 4.9 Chloride 92 L Carbon Dioxide 26.0 Anion Gap 11 BUN 66 H Creatinine 8.4 H* D Estim Creat Clear Calc 9.8 L eGFR 7 L* BUN/Creatinine Ratio 8 L Glucose 122 H Calculated Osmolality 278 Calcium 8.6 Corrected Calcium 8.7 Phosphorus 6.2 H Magnesium 2.4 Total Bilirubin 0.3 AST 10 ALT 8 L Alkaline Phosphatase 135 H Total Protein 7.5 Albumin 3.9 Globulin 3.6 H Albumin/Globulin Ratio 1.1 L Coccidioides IgM Ab Negative Quality Measures Quality Measures none Assessment & Plan Assessment Current Active Medications: Generic Name Dose Route Start Last Admin Trade Name Freq PRN Reason Stop Dose Admin Acetaminophen 650 mg 03/21/24 10:34 Acetaminophen 325 Mg Tablet PO 04/19/24 23:43 Q6H PRN Fever >100.3 or pain Hydrocodone Bitart/Acetaminophen 1 tab 03/20/24 23:44 Hydrocodone/Apap 5/325 Tablet PO 03/25/24 23:43 Q4HR PRN PAIN SCALE 4-10(Mod-Sev Albuterol/Ipratropium 3 ml 03/20/24 23:44 03/22/24 07:39 Albuterol/Ipratropium (Duoneb) Rt Denise 3 Ml Nebu INH 04/19/24 23:43 3 ml Q2HR PRN Administration SHORTNESS OF BREATH OR WHEEZE Amiodarone HCl 200 mg 03/21/24 14:15 03/22/24 08:31 Amiodarone Hcl 200 Mg Tablet PO 04/20/24 14:14 200 mg QDAY LIZETH Administration Aspirin 81 mg 03/21/24 09:00 03/22/24 08:30 Aspirin Ec 81 Mg Tabec PO 04/20/24 08:59 81 mg QDAY LIZETH Administration Atorvastatin Calcium 40 mg 03/21/24 14:15 03/22/24 08:30 Atorvastatin Calcium 20 Mg Tablet PO 04/20/24 14:14 40 mg QDAY LIZETH Administration Dextrose 50 ml 03/20/24 23:51 Dextrose 50%-Water Inj 50 Ml Syringe IV 04/19/24 23:50 Q15MIN PRN BG <50 OR BG <70 & pt unresponsive Gabapentin 100 mg/ Gabapentin 400 mg 03/21/24 21:00 03/22/24 08:30 300 mg PO 04/20/24 20:59 400 mg BID LIZETH Administration Glucagon 1 mg 03/20/24 23:51 Glucagon Inj 1 Mg Vial IM Q15MIN PRN BG <70, and no IV access Guaifenesin 200 mg 03/21/24 04:35 Guaifenesin Syrup 200 Mg/10 Ml Udc PO 04/20/24 04:34 QID PRN cough/ congestion Protocol Heparin Sodium (Porcine) 5,000 unit 03/20/24 23:45 03/22/24 08:32 Heparin Sod Inj 5000 Unit/Ml Vial SC 04/03/24 23:44 5,000 unit BID LIZETH Administration Ceftriaxone Sodium/Dextrose 50 mls @ 100 mls/hr 03/21/24 21:00 03/21/24 21:20 Rocephin/D5w 1gm Iv Premix IV 03/28/24 20:59 100 mls/hr QDAY@2100 LIZETH Administration Albumin Human 25 gm in 100 mls @ 100 mls/hr 03/22/24 13:33 Albuminar-25 Ivpb IV PRN PRN DIALYSIS Insulin Human Lispro 0 unit 03/21/24 07:30 03/22/24 11:19 Insulin Lispro (Admelog) 1 Unit/0.01 Ml Unit SC 04/20/24 07:29 4 unit ACHS LIZETH Administration Protocol Melatonin 3 mg 03/21/24 14:02 Melatonin 3 Mg Tablet PO 04/20/24 14:01 HS PRN sleep Midodrine 10 mg 03/22/24 14:00 03/22/24 13:27 Midodrine 5 Mg Tablet PO 04/21/24 13:59 10 mg TID LIZETH Administration Ondansetron HCl 4 mg 03/20/24 23:44 Ondansetron Inj 2 Mg/Ml Inj 2 Ml IV 04/19/24 23:43 Q6H PRN NAUSEA OR VOMITING Protocol Pantoprazole Sodium 40 mg 03/21/24 09:00 03/22/24 08:30 Pantoprazole 40 Mg Tablet PO 04/20/24 08:59 40 mg QDAY LIZETH Administration Patiromer 8.4 gm 03/21/24 09:00 03/22/24 08:35 Patiromer Calcium 8.4 Gm Packet (Non-Form) PO 04/20/24 08:59 8.4 gm DAILY LIZETH Administration Sennosides 1 tab 03/21/24 09:00 03/22/24 08:30 Senna Tablet PO 04/20/24 08:59 1 tab QDAY LIZETH Administration Protocol Sevelamer Carbonate 800 mg 03/22/24 12:00 03/22/24 11:19 Sevelamer Carbonate 800 Mg Tablet PO 04/21/24 11:59 800 mg TIDWM LIZETH Administration Plan 63-year-old male with a past medical history significant for ESRD on HD [M/W/F], essential hypertension, insulin-dependent diabetes mellitus type 2, hyperlipidemia, CAD s/p CABG with stents [08/19/2023], HFpEF [60-65%] on 2L home O2 presenting with a chief complaint of a syncopal episode. Will be admitted for workup and management of syncope and community-acquired pneumonia. #Acute hypoxic respiratory failure #Influenza A/B #Community-acquired pneumonia On imaging chest x-ray significant for bilateral consolidation at bases, pulmonary edema and bibasilar pleural effusion. R IJ catheter in situ. PSI/PORT : 101 points. Risk class IV. Hospitalization recommended based on risk ? Supplemental O2 as necessary ? Pending sputum culture and Gram stain ? Tamiflu ? Ceftriaxone 1 g IV daily started on [03/21? ? DuoNebs Q2 hourly as needed ? Guaifenesin 200 Mg p.o. 4 times daily as needed for cough #Bilateral pleural effusions Pleural rub on physical exam, likely secondary to ESRD and volume overload status, less likely parapneumonic infusions as patient does not have leukocytosis or fever . Bilateral pleural effusions on the chest x-ray are noted in the imaging. ?Reached out to [employer] Dr Verma for urgent hemodialysis today in addition to scheduled M/W/. #Syncopal episode Likely secondary to fluid shifts from hemodialysis, Patient had a syncopal episode following dialysis today. [place] dizzy upon standing and subsequently blacked out. Patient does not recall having fainted or blacked out however patient likely forgot as per family members DDx: Orthostatic hypotension, vasovagal syncope, cardiogenic syncope Orthostatic vitals are negative at this time ?Echo ordered and pending ? Midodrine 10 Mg p.o. twice daily #HFpEF [60 to 65%] #CAD s/p CABG with stents [08/15/2023] #NSTEMI type 1 vs type 2 Patient has baseline SOB at rest and is on 2L home O2 Echo from 07/11/2023 showed Estimated EF 60 to 65%. Mild RV dilation. Severe biatrial dilatation. Ascending aorta mildly dilated at 3.5 cm. Lipid panel unremarkable NYHA stage D class IV On admission Troponin 0.08 ---> 0.085-->0.081 EKG significant for sinus rhythm, second-degree AV block, Q waves in anteroseptal leads. QTc [address] changes. - No need to continue to trend troponins ? Strict input output ? 1500 cc/day fluid restriction ? Daily weights #Atrial fibrillation s/p ablation [03/12/2024] Patient had ablation earlier this month EKG significant for sinus rhythm, second-degree AV block, Q waves in anteroseptal leads. QTc [address] changes. CHADVASC score 3 -Resumed amiodarone 200 mg daily as taken at home #ESRD on HD [M/W/F] Patient dialyzes via right IJ catheter. Recently his left radial AV fistula became thrombosed and he is awaiting vascular surgery consult for possible thrombectomy. His supervisor [employer] is Dr. Verma. ? Renally dose medication ? Avoid nephrotoxic agents ? Nephrology, Dr Verma consulted. Appreciate recommendations #Insulin-dependent diabetes mellitus type 2 #Diabetic neuropathy A1c 7.3, at home patient uses 10 units of glargine -SSI -Hypoglycemia protocol in place -Atorvastatin 40 mg resumed as taken at home -Resume gabapentin as taken at home #Essential hypertension Patient normotensive on admission Patient currently blood pressure on the softer side -Will hold off on resuming antihypertensives at this time Case discussed with my attending Dr. Sara Linares MD PGY-1 Disposition: Med telemetry, hemodialysis today in addition to scheduled amp/W/F Fluids: None Feeding: Renal Thrombo prophylaxis: Heparin Gastric Ulcer prophylaxis: Pantoprazole CODE STATUS: Full code Attending Provider Attestation/Addendum 63-year-old male with multiple comorbidities including a-fib s/p ablation, hypertension, type 2 diabetes mellitus, hyperlipidemia with subsequent CAD status post stent placement, heart failure with preserved EF and heart failure with preserved EF with EF 60-65% on 2 L supplemental oxygen and ESRD on HD on MWF who presented to the ER after he was noted to have a syncopal episode during hemodialysis. In addition, patient also noted to have acute hypoxic respiratory failure secondary to fluid overload state and community-acquired pneumonia as well as influenza A and B. As of now, plan to continue Rocephin, azithromycin and Tamiflu. Currently, patient is on 3L supplemental oxygen and appears to be fluid overloaded. As for syncopal episode, CT head negative and orthostatic vitals were normal and echocardiogram pending to rule out structural heart disease such as . On tele no evidence of arrhythmia. I reviewed above note and agree with findings and plans. I have also personally examined the patient with medicine team and went over assessment and plan with medical team including security intern and resident physician.
--- NOTE | 2024-03-22 17:05 | PC.NURSE ---
Dialysis completed for 2.5 hrs, tolerated well. Pt no complaints. Respiration even and unlabored. Sating at 97% on O2 at 3L/min via nc. Able to removed 1700 ml of fluid net. Post tx BP 126/87, HR 95, Temp 98. Pt back in his room. Call light within reached. Report given to Amaya LEMON
[2024-03-22] MEDS: cefTRIAXone/D5w 1gm IV premix 50 ML IV (21:51)
--- NOTE | 2024-03-22 23:08 | PD.NEUROCONS ---
History of Present Illness Data of Consult Requesting Physician: Seth Sainz DO Primary Care Provider: Yared Linares MD Consult Narrative History of present illness: Patient is a 63-year-old male with ESRD on maintenance hemodialysis, hypertension, insulin-dependent diabetes mellitus type 2, hyperlipidemia, CAD s/p CABG with stents got admitted to telemetry for syncope. Patient's daughter stated that he went to dialysis session on the day of admission, he felt weak subsequently, even though he was able to carry on his activities of daily living. He did not feel well as he was getting out of the car, he felt dizzy and held onto the cart for support. He walked 2 steps and then his daughter had to catch him as he had passed out. He did not close consciousness more than 1 minute but was confused around the whole situation. No weakness after the episode or witnessed tonic-clonic convulsions. He denies any chest pain, shortness of breath, nausea vomiting headache or paresthesias. He denies any sick contacts. He did not miss any dialysis sessions. He has been on midodrine 10 mg twice a day after the last episode in November 2023. Workup in the ER: Vitals: BP 117/78, pulse 96, RR 18, temp 30 9.3F, SpO2 96% on 3L NC. Labs: Hb 13.1, HCT 40.2, NA 131, K5.2, BUN 34, CR 5.9. Imaging studies: Chest x-ray significant for bilateral consolidation at bases, pulmonary edema and bibasilar pleural effusion. R IJ catheter in place but may need replacement Head CT was negative for any acute hemorrhage, mass effect or midline shift. Age-indeterminate left cerebellar hemisphere infarct. EKG significant for sinus rhythm, second-degree AV block, Q waves in anteroseptal leads. QTc [address] changes. Patient got admitted to telemetry for workup of syncope and treatment of community-acquired pneumonia. Neurology was consulted to evaluate further. Patient did not many episodes after admission cc:: cc: Seth Sainz DO Review of Systems Review of Systems Systems Reviewed: All systems reviewed, normal except as documented Past Medical History Past Medical History NEUROLOGIC: Positive Neurological Disorders, Cerebrovascular Accident (2021), Seizures and Peripheral Neuropathy CARDIAC: Positive Cardiac Disorders, Atrial Fibrillation, Coronary Artery Disease, Hypercholesterolemia, Congestive Heart Failure, Edema and Hypertension; Negative Varicose Veins RESPIRATORY: Positive Chronic Obstructive Pulmonary Disease (COPD) (use oxygen) and Pneumonia GASTROINTESTINAL: Positive Gastrointestinal Disorders, Gall Bladder Disease and Gastroesophageal Reflux Disease; Negative Hepatitis, Gastrointestinal Bleed, Diverticulitis, Diverticulosis, Ulcer, Colorectal Cancer, Hiatal Hernia or Obesity GENITOURINARY: Positive Genitourinary Disorders, Renal Disease and Dialysis (MWF); Negative Prostate Cancer REPRODUCTIVE: Negative Testicular Cancer MUSCULOSKELETAL: Positive Musculoskeletal Disorders, Bone Cancer (?) and Arthritis; Negative Gout, Scoliosis, Carpal Tunnel Syndrome or Fibromyalgia ENT: Positive Cataracts and Glaucoma; Negative Retinal Detachment or Macular Degeneration ENDOCRINE: Positive Endocrine Disorders, Diabetes Mellitus Type 2 and Hypothyroidism; Negative Diabetes Mellitus Type 1 HEMATOLOGIC: Positive Anemia; Negative Blood Disorders OTHER HISTORY: Positive Hospitalization, Falls, Blood Transfusions and Measles; Negative Autoimmune Disease, Shingles, Blood Transfusion Reaction, Anesthesia Reactions, Chemotherapy, Radiation Therapy, MRSA, Chicken Pox, Mumps, Pertussis, Cancer, Colorectal Cancer, Lung Cancer, Prostate Cancer or Testicular Cancer Family History FAMILY HISTORY: Positive Family Cardiac Disorders (father) and Family Surgery; Negative Family Psychiatric Problems, Family Respiratory Disorders, Family Gastrointestinal Problems, Family Cancer or Family Anesthesia Reaction Surgical History SURGICAL: Positive Cardiac Surgery, Vascular Surgery and Eye Surgery; Negative Open Heart Surgery, Coronary Artery Bypass Graft, Valve Replacement, Coronary Stent, Cardiac Catheterization, Pacemaker, Angiogram, Auto Implanted Cardiovert Defib, Carotid Endarterectomy, Ear Surgery, Tympanostomy Tube, Nose Surgery, Oral Surgery, Tonsillectomy, Adenoidectomy, Cochlear Implant, Corneal Transplant, Throat Surgery, Abdominal Surgery, Tracheostomy, Gastric Bypass Surgery, Gastrostomy, Bowel Surgery, Nephrectomy, Transurethral Resection, Joint Replacement, Amputation, Open Reduction Internal Fixation, Arthroscopy, Neurologic Surgery, Brain Shunt or Vasectomy Social History SMOKING STATUS: Current every day smoker SECOND HAND EXPOSURE: No SUBSTANCE USE: does not use Past Medical History Comments PMH COMMENT: Past medical history: ? ESRD on HD [M/W/F] ? Insulin-dependent diabetes mellitus type 2 ? Essential hypertension ? Hyperlipidemia ? CAD s/p CABG and stents [08/15/2023] ? Atrial fibrillation s/p ablation 03/12/2024 ? History of West Nile 2014 Medication list: ? Gabapentin 800 Mg p.o. daily ? Sevelamer 800 Mg p.o. daily ? Ferrous sulfate 325 Mg p.o. every other day ? Lisinopril 40 Mg p.o. twice daily ? Midodrine 10 Mg p.o. twice daily ? Veltassa 8.4 g p.o. daily ? Atorvastatin 40 Mg p.o. at bedtime ? Aspirin 81 Mg p.o. daily Past surgical history: ? CABG?2023 ? 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 Has 3 kids Tobacco use: Approximately [id number] smoking history ETHO use: Denies Illicit drug use: Denies Social History Note: Lives alone with his mother. At baseline ambulates without assistance but sometimes uses a walker. Needs assistance with self-care. Meds Home Medications and Allergies Home Medications ?Medication ?Instructions ?Recorded ?Confirmed ?Type gabapentin 400 mg capsule 400 mg PO BID PAIN 08/03/19 03/21/24 History acetaminophen 325 mg tablet 650 mg PO QDAY 10/19/23 03/21/24 History (Tylenol) albuterol sulfate 2.5 mg/3 mL 2.5 mg inhalation Q4H PRN SOB 10/19/23 03/21/24 History (0.083 %) solution for nebulization amiodarone 200 mg tablet 200 mg PO QDAY 10/19/23 03/21/24 History atorvastatin 40 mg tablet (Lipitor) 40 mg PO QDAY 10/19/23 03/21/24 History famotidine 20 mg tablet (Pepcid) 20 mg PO QDAY 10/19/23 03/21/24 History insulin glargine 100 unit/mL 10 unit subcut QPM 10/19/23 03/21/24 History subcutaneous solution insulin lispro 100 unit/mL 1 sliding scale dose subcut 10/19/23 03/21/24 History subcutaneous solution (Humalog USEASDIRECTD U-100 Insulin) melatonin 3 mg tablet 3 mg PO HS PRN sleep 10/19/23 03/21/24 History folic acid 400 mcg tablet 0.4 mg PO QDAY 10/28/23 03/21/24 History ascorbic acid (vitamin C) 500 mg 500 mg PO QDAY 11/02/23 03/21/24 History tablet Allergies Allergy/AdvReac Type Severity Reaction Status Date / Time vancomycin Allergy Severe Hives Verified 03/11/24 09:45 Exam - Neurology Vital Signs Temp Pulse Resp BP Pulse Ox O2 Del Method O2 Flow Rate 97.7 F 93 19 125/78 99 Nasal Cannula 3 03/22/24 20:00 03/22/24 23:03 03/22/24 23:03 03/22/24 22:09 03/22/24 23:03 03/22/24 20:00 03/22/24 23:03 Narrative Exam GENERAL APPEARANCE: Well hydrated, well-nourished in no acute distress. HEENT: Normocephalic, atraumatic, extraocular movements intact. Pupils: Equal reacting to light and accommodation NECK: Supple, no JVD or bruits. CARDIOVASULAR: Heart: S1, S2 heard, regular without S3-S4 or murmur no rubs or gallops. LUNGS/CHEST: Clear to auscultation bilaterally. No rails, rhonchi, or wheezing. Normal inspection. ABDOMEN: Soft, nontender, with normal bowel sounds. No pulsatile masses. No rebound, rigidity, or guarding. Normal inspection and palpation. EXTREMITIES: Normal inspection and palpation. No edema, clubbing or cyanosis. SKIN: Warm and dry without rashes. Normal inspection. MUSCULOSKELETAL: No cervical, thoracic, lumbar or midline bony tenderness. Normal inspection. NEURO: Alert, awake and oriented x3. Cranial nerves: II through XII grossly intact. Speech and language: Normal with no dysarthria or dysphasia. Motor system: Tone and bulk: Normal: Strength: 5 out of 5 in all 4 extremities; No pronator drift noted. Deep tendon reflexes: 2+ bilaterally symmetrical. Plantar reflex: Downgoing bilaterally. Sensory system: Intact to all modalities of sensation bilaterally. Coordination: Intact to dttsau-ivpy-lquod and wzau-rnen-qksm test bilaterally. No ataxia, no dysmetria, or dysdiadochokinesia noted. No intention tremors noted. Gait: Not tested. No signs of meningeal irritation noted. PSYCHIATRIC: Normal mood and affect. Results Labs 03/22/24 05:36 03/22/24 05:36 Labs: Short CBC 03/22/24 Range/Units 05:36 WBC 5.7 (3.8-10.6) Thou/mm3 Hgb 12.0 L (13.5-16.0) g/dL Hct 37.5 L (41.0-53.0) % Plt Count 114 L (140-440) Thou/mm3 BMP 03/22/24 05:36 Sodium 129 L Potassium 4.9 Chloride 92 L Carbon Dioxide 26.0 BUN 66 H Creatinine 8.4 H* D Glucose 122 H Calcium 8.6 Liver Function 03/22/24 Range/Units 05:36 Total Bilirubin 0.3 (0.3-1.2) mg/dL AST 10 (0-34) U/L ALT 8 L (10-49) U/L Alkaline Phosphatase 135 H (46-116) U/L Albumin 3.9 (3.4-4.8) gm/dL Assessment & Plan Assessment and plan (1) Syncope: Status: Acute Assessment and plan: Ordered EEG to evaluate further (2) End stage renal failure on dialysis: Status: Chronic Assessment and plan: On maintenance hemodialysis (3) Hypotension: Status: Acute Assessment and plan: Continue with midodrine (4) Anemia: Status: Chronic Assessment and plan: Secondary to chronic kidney disease, on iron supplement (5) Atrial fibrillation with RVR: Status: Chronic Assessment and plan: Continue with amiodarone
[2024-03-23] VITALS (26 sets, daily range): BP systolic 101–151; BP diastolic 65–103; PULSE 58–101; RESP 17–27; TEMP 36.3–36.7; O2SAT 94–99; BMI 36.7
--- NOTE | 2024-03-23 00:53 | RESP.EEG ---
EEG has been recorded and is ready for MD interpretation.
[2024-03-23 06:24] LABS: Basophils % (Auto) 0 % (0-2.5); Eosinophils # (Auto) 0.2 Thou/mm3 (0.0-0.5); Eosinophils % (Auto) 3 % (0-10); Hematocrit 35.7 % (41.0-53.0); Hemoglobin 11.5 g/dL (13.5-16.0); Immature Granulocytes % (Auto) 0 % (0-0); Immature Granulocytes Auto 0.01 Thou/mm3 (0.00-0.00); Lymphocytes # (Auto) 0.5 Thou/mm3 (1.0-4.8); Lymphocytes % (Auto) 11 % (10-50); Mean Corpuscular HGB Conc 32.2 g/dl (31.0-37.0); Mean Corpuscular Hemoglobin 33.6 pg (25.0-35.0); Mean Corpuscular Volume 104 fL (80-100); Monocytes # (Auto) 0.6 Thou/mm3 (0.0-0.8); Monocytes % (Auto) 14 % (0-12); Neutrophils # (Auto) 3.3 Thou/mm3 (1.8-7.7); Neutrophils % (Auto) 72 % (37-80); Nucleated Red Blood Cell % 0 /100 WBC (0); Platelet Count 115 Thou/mm3 (140-440); RDW Standard Deviation 56.7 fL (35.1-43.9); Red Blood Count 3.42 Miln/mm3 (4.50-5.90); White Blood Count 4.6 Thou/mm3 (3.8-10.6)
[2024-03-23 07:13] LABS: Alanine Aminotransferase < 7 U/L (10-49); Albumin, Serum 3.5 gm/dL (3.4-4.8); Alkaline Phosphatase 123 U/L (46-116); Anion Gap 10 (7-16); Aspartate Amino Transferase < 10 U/L (0-34); BUN/Creatinine Ratio 7 Ratio (12-20); Bilirubin,Total 0.3 mg/dL (0.3-1.2); Blood Urea Nitrogen 50 mg/dL (9-23); Calcium 8.7 mg/dL (8.3-10.6); Calcium (Corrected) 9.1 mg/dL (8.5-10.1); Carbon Dioxide 27.3 mMol/L (20.0-31.0); Chloride 94 mMol/L (98-107); Creatinine (Component) 7.2 mg/dL (0.6-1.3); Estimated Creatinine Clearance 11.3 mL/min (>60); Globulin 3.5 gm/dL (2.3-3.5); Glucose 145 mg/dL (74-106); Magnesium 2.2 mg/dL (1.6-2.6); Osmolality,Calculated 278 (275-295); Phosphorous 5.1 mg/dL (2.4-5.1); Potassium 4.7 mMol/L (3.4-5.1); Sodium 131 mMol/L (136-145); eGFR 8 See Note
[2024-03-23] MEDS: MIDODRINE 5 MG TABLET 10 MG PO (08:26)
--- NOTE | 2024-03-23 08:30 | PC.NURSE ---
Midodrine 10mg po given for low BP
[2024-03-23] MEDS: HYDROcodone/APAP 5/325 TABLET 1 TAB PO (08:57)
--- NOTE | 2024-03-23 08:58 | PC.NURSE ---
Pt co CP with inspiration 07/04. Hydrocodone 5/325 mg given PO.
--- NOTE | 2024-03-23 09:19 | PD.NEPHPROG ---
Documentation for date of: 03/23/24 Subjective Subjective Interval history: Daughter is the informant. Patient currently seen in telemetry. Mr. Clarke is a 63-year-old gentleman with a past medical history significant for ESRD on HD [M/W/F], essential hypertension, insulin-dependent diabetes mellitus type 2, hyperlipidemia, A. fib, recurrent episodes of hyperkalemia, renal osteodystrophy, CAD s/p CABG with stents [08/19/2023], HFpEF [60-65%] on 2L home O2 presenting with a chief complaint of a syncopal episode. Patient apparently went to his dialysis session yesterday and postdialysis was having significant weakness dizziness and fainted. Was brought to the ED for further evaluation. Patient had similar episodes last year and was hospitalized. Was discharged with midodrine-deemed to be related to orthostatic hypotension. In the emergency department his blood pressure 117/78, heart rate 96. On 3 L oxygen. Labs showed hemoglobin 13.1, sodium 131, potassium 5.2, BUN 34, creatinine 5.9, troponin 0.08. Chest x-ray showed fluid overload, pneumonia. CT brain negative. EKG showed AV block second-degree. Patient was started on breathing treatments, antibiotics and admitted with a diagnosis of pneumonia/hypoxic respiratory failure. Nephrology consultation was requested for need for dialysis. Home medications included Tylenol, albuterol, amiodarone, L-ascorbic acid, Lipitor, Pepcid, iron, folic acid, gabapentin, insulin, midodrine, Veltassa, sevelamer 03/22/2024 patient currently seen in telemetry. Noted sitting in the edge of the bed and leaning forward with shortness of breath. Lung exam showed he is in fluid overload. Unable to lay flat. Decided to proceed with extra dialysis today. Blood pressure 134/92, heart rate 94, respiratory 23. Blood sugar 149. Hemoglobin 12, white count 5.7, platelets 114. Sodium 129, potassium 4.9, BUN 66, creatinine 8.4, glucose 122, calcium 8.7, magnesium 2.4, phosphorus 6.2, LFTs normal, albumin 3.9. 03/23/2024 patient currently seen on dialysis. Feeling much better. On 3 L oxygen. Labs, medications reviewed. Review of Systems Review of Systems Narrative Review of Systems: CONSTITUTIONAL: Patient denies any fever, chills. Complaining of fatigue HEENT: Denies any visual disturbances or hearing problems. CARDIOVASCULAR: Patient denies any chest pain. c/o shortness of breath, swelling in the lower extremities. PULMONARY: Patient c/o wheezing, shortness of breath, cough. GASTROINTESTINAL: Patient denies any abdominal pain, constipation, nausea, vomiting, diarrhea. GENITOURINARY: Decreased urination SKIN: Denies any rash. MUSCULOSKELETAL: Denies any muscular skeletal problems of joint pains. NEUROLOGICAL: Denies any neurological problems of strokes, seizures or confusion. Denies any memory problems. PSYCHIATRIC: Denies any depression or anxiety. LYMPHATICS : No lymphadenopathy Exam Vital Signs Temp Pulse Resp BP Pulse Ox O2 Del Method O2 Flow Rate 36.7 C 95 20 124/76 95 Nasal Cannula 2 03/23/24 08:01 03/23/24 09:15 03/23/24 08:01 03/23/24 09:15 03/23/24 08:01 03/23/24 07:00 03/23/24 08:01 Narrative Exam GENERAL APPEARANCE: Patient is short of breath. On oxygen. On dialysis NECK: Neck supple, no JVD or bruit CARDIOVASCULAR: Heart regular, no murmurs LUNGS/CHEST:Bilateral rhonchi, wheezing ABDOMEN: Soft, nontender, nondistended. No masses. Normal bowel sounds. EXTREMITIES: 2+ edema in the lower extremities SKIN: Skin exam normal without any rashes / ++ AVF MUSCULOSKELETAL: Musculoskeletal exam normal PSYCHIATRIC: Normal mood, affect LYMPHATICS: No lymphadenopathy noted NEUROLOGICAL : No neurological deficits Objective Labs 03/23/24 05:20 03/23/24 05:20 Labs: Laboratory Results - last 24 hr 03/23/24 05:20 WBC 4.6 RBC 3.42 L Hgb 11.5 L Hct 35.7 L MCV 104 H MCH 33.6 MCHC 32.2 RDW Std Deviation 56.7 H Plt Count 115 L Neut % (Auto) 72 Lymph % (Auto) 11 [place] % (Auto) 14 H Eos % (Auto) 3 Baso % (Auto) 0 Neut # (Auto) 3.3 Lymph # (Auto) 0.5 L [place] # (Auto) 0.6 Eos # (Auto) 0.2 Baso # (Auto) 0.0 Immature Gran # (Auto) 0.01 H Absolute Nucleated RBC 0.00 Immature Gran % 0 Nucleated RBC % 0 Sodium 131 L Potassium 4.7 Chloride 94 L Carbon Dioxide 27.3 Anion Gap 10 BUN 50 H Creatinine 7.2 H* D Estim Creat Clear Calc 11.3 L eGFR 8 L* BUN/Creatinine Ratio 7 L Glucose 145 H Calculated Osmolality 278 Calcium 8.7 Corrected Calcium 9.1 Phosphorus 5.1 Magnesium 2.2 Total Bilirubin 0.3 AST < 10 ALT < 7 L Alkaline Phosphatase 123 H Total Protein 7.0 Albumin 3.5 Globulin 3.5 Albumin/Globulin Ratio 1.0 L Assessment & Plan Assessment and plan (1) Syncope: Status: Acute (2) End stage renal failure on dialysis: Status: Chronic (3) Hypotension: Status: Acute (4) Anemia: Status: Chronic (5) Atrial fibrillation with RVR: Status: Chronic Additional Assessment & Plan Additional Plan: 1) ESRD (end stage renal disease) on dialysis: Status: Acute ESRD secondary to diabetic nephropathy. Patient goes to dialysis Saturday, Saturday, Saturday. Patient currently seen on dialysis. Tolerating dialysis without any problems. Hemodialysis for 3 hours, 2K, ultrafiltration 2-3 L, Epogen 6000, no heparin ordered. Plan of care discussed with the dialysis nurse. Please see dialysis flowsheet for further details. Postdialysis patient can be discharged if stable (2) hypoxic respiratory failure- secondary to pneumonia/CHF - on oxygen, antibiotics, breathing treatments much better. (3) Renal osteodystrophy: Status: Acute On Sensipar. Calcium levels normal (4) Hypotension-could be the cause for syncope Status: Acute Currently on midodrine (5) Diabetes: Status: Acute Accu-Cheks, sliding scale, diabetic diet (6) Anemia in chronic kidney disease (CKD): Status: Acute Epogen given with dialysis. 7) atrial fibrillation Status: Acute Rate control, anticoagulation ordered Thank you Dr. Sainz for allowing me to participate in the care of Mr. Clarke Spoke to primary team Quality - progress note Quality Measures Quality Measures: VTE prophylaxis Reason for Continued Stay Reason for Continued Stay: further monitoring
--- NOTE | 2024-03-23 11:09 | PC.SS ---
Follow up note: Pt is on 2 liters of O2. Pt is on IV antibiotic. Pt will return home upon dc.
[2024-03-23] MEDS: HEPARIN SOD INJ 1000 UNIT/ML VIAL 10 ML 3300 UNIT INDWELLCAT (11:12)
[2024-03-23] MEDS: ASPIRIN EC 81 MG TABEC PO (11:43)
[2024-03-23] MEDS: AMIODARONE HCL 200 MG TABLET PO (11:43)
[2024-03-23] MEDS: GABAPENTIN 100 MG, GABAPENTIN 300 MG 400 MG PO (11:43)
[2024-03-23] MEDS: SEVELAMER CARBONATE 800 MG TABLET PO (11:43)
[2024-03-23] MEDS: SENNA TABLET 1 TAB PO (11:44)
[2024-03-23] MEDS: PANTOPRAZOLE 40 MG TABLET PO (11:44)
[2024-03-23] MEDS: ATORVASTATIN CALCIUM 20 MG TABLET 40 MG PO (11:44)
[2024-03-23] MEDS: HEPARIN SOD INJ 5000 UNIT/ML VIAL SC (11:46)
[2024-03-23] MEDS: INSULIN LISPRO (AdmeLOG) 1 UNIT/0.01 ML UNIT SC (11:50)
[2024-03-23] MEDS: PATIROMER CALCIUM 8.4 GM PACKET (NON-FORM) PO (12:24)
--- NOTE | 2024-03-23 12:38 | ESDS_ITS ---
<Statement entered by Yenny Lomas DO - 03/24/24 15:17> I, Yenny Lomas DO, attest that I was physically present for the knight portions of the service and evaluated the patient with the resident and I reviewed and discussed the case with the resident and agree with the resident's findings and plans of care as documented above Planned Discharge Date 03/23/24 DS: Providers Provider Date of admission: 03/22/24 07:48 Primary care physician: Yared Linares MD Admitting Provider: Seth Sainz DO Attending Provider on Admission: Yenny Lomas DO Consults: 03/21/24 01:16 Consult to Nephrology Routine Comment: Consulting Provider: Lavelle Verma 03/21/24 01:26 Referral Smoking Cessation Counseling Routine Comment: Smoking Cessation Education Needed 03/22/24 11:13 Consult to Neurology / Tele-Neurology Urgent Comment: Consulting Provider: Isauro Carl Attending Provider on DC: Yenny Lomas DO Discharging Provider: oDnis Linares MD Anticipated date of discharge: 03/23/24 DS: Diagnosis Problem List Completed Was Problem List Reviewed/Reconciled?: Yes Hospital Course Hospital Course Hospital course: 63-year-old male with a past medical history significant for ESRD on HD [M/W/F], essential hypertension, insulin-dependent diabetes mellitus type 2, hyperlipidemia, CAD s/p CABG with stents [08/19/2023], HFpEF [60-65%] on 2L home O2 presenting with a chief complaint of a syncopal episode. Will be admitted for workup and management of syncope and community-acquired pneumonia. During hospital stay patient was managed with IV antibiotics namely ceftriaxone and Tamiflu for influenza which was renally dosed. Patient was also provided with breathing treatments to help help with patient's increased oxygen requirements. Patient was also found to have bilateral pleural effusions for which showed Dr. Verma, nephrology was consulted and patient had a urgent dialysis and continue with his scheduled Saturday schedule. For patient's syncope episode most likely secondary to fluid shifts from hemodialysis, however workup was done here in the hospital which included orthostatic vitals, was evaluated by cardiology with echocardiogram and neurology, Dr Carl with EEG. Patient's home midodrine was resumed. Patient has history of atrial fibrillation for which patient's home medication amiodarone 200 mg daily was resumed. Diabetes was managed with insulin sliding scale, hypoglycemia protocol, and for neuropathy patient's home dose of gabapentin was resumed. At this time patient is medically stable for discharge. Recommend continuing Augmentin 500 mg/day [dose adjusted for hemodialysis] and doxycycline 100 mg twice daily for 5 more days for treatment of pneumonia. Recommend following up with slug press operator Dr. De La Rosa within 2 weeks of discharge from hospital. Please follow-up with hemodialysis schedule and follow-up with bmet within 2 weeks of discharge from hospital. Also recommend following up with neurologist Dr Carl within 2 weeks of discharge from hospital, you may need to set up an appointment and see your primary care to set up referral. Please see your primary doctor within 5 days of discharge from hospital. In case of worsening symptoms please return to the emergency room. Problem list: #Acute hypoxic respiratory failure #Influenza A/B #Community-acquired pneumonia #Bilateral pleural effusions #Syncopal episode #HFpEF [60 to 65%] #CAD s/p CABG with stents [08/15/2023] #NSTEMI type 2 #Atrial fibrillation s/p ablation [03/12/2024] #ESRD on HD [M/W/F] #Insulin-dependent diabetes mellitus type 2 #Diabetic neuropathy #Essential hypertension Case discussed with my attending Dr. Cesilia Linares MD PGY-1 Status at Discharge Functional status at discharge: independent ambulation Overall status at discharge: patient is back to baseline Time Spent with Patient Time attestation: Total time spent providing and/or coordinating discharge services: Time spent: Greater than 30 minutes Exam Vital Signs Temp Pulse Resp BP Pulse Ox O2 Del Method O2 Flow Rate 98.0 F 101 H 18 142/92 H 99 Nasal Cannula 2 03/23/24 11:00 03/23/24 11:43 03/23/24 11:00 03/23/24 11:43 03/23/24 11:00 03/23/24 07:00 03/23/24 11:00 Narrative Exam Physical Exam GENERAL: No acute distress, AAOx3 HEENT: Moist mucosa. Eyes open, symmetrical, & clear, right IJ HD catheter CARDIO: Heart RRR, no obvious murmurs PULM: Bilateral rhonchi-improving GI: Abdomen soft, nondistended, no pain on palpation. BSx4 SKIN/MSK/EXT: Thrombosed left radial fistula, no pain on palpation. Pedal pulses present B/L NEURO: AAOx3, no focal neuro deficits, able to move all 4 extremities Discharge Plan Plan Patient Disposition: HOME (Self Care) Care Plan Goals: Recommend continuing Augmentin 500 mg/day [dose adjusted for hemodialysis] and doxycycline 100 mg twice daily for 5 more days for treatment of pneumonia. Recommend following up with slug press operator Dr. De La Rosa within 2 weeks of discharge from hospital. Please follow-up with hemodialysis schedule and follow-up with bmet within 2 weeks of discharge from hospital. Also recommend following up with neurologist Dr Carl within 2 weeks of discharge from hospital, you may need to set up an appointment and see your primary care to set up referral. Please see your primary doctor within 5 days of discharge from hospital. In case of worsening symptoms please return to the emergency room. Prescriptions/Referrals Prescriptions/Med Rec: New sennosides [Senna Lax] 8.6 mg Tablet 8.6 mg PO QDAY Qty: 14 0RF sevelamer carbonate 800 mg Tablet 800 mg PO TIDWM 30 Days Qty: 90 0RF midodrine 5 mg Tablet 10 mg PO TID 30 Days Qty: 180 0RF guaifenesin 100 mg/5 mL Liquid 200 mg PO QID PRN (Reason: cough/ congestion) 30 Days Qty: 5 0RF Veltassa 8.4 gram Powder In Packet 8.4 g PO DAILY Qty: 30 0RF amoxicillin-pot clavulanate [Augmentin] 500-125 mg tablet 1 tab PO QDAY Qty: 5 0RF doxycycline hyclate 100 mg tablet 100 mg PO BID Qty: 10 0RF Continued gabapentin 400 MG capsule 400 mg PO BID ascorbic acid (vitamin C) 500 mg Tablet 500 mg PO QDAY atorvastatin [Lipitor] 40 mg Tablet 40 mg PO QDAY acetaminophen [Tylenol] 325 mg Tablet 650 mg PO QDAY insulin glargine 100 unit/mL Solution 10 unit SUBCUT QPM albuterol sulfate 2.5 mg /3 mL (0.083 %) Solution For Nebulization 2.5 mg INHALATION Q4H PRN (Reason: SOB) amiodarone 200 mg Tablet 200 mg PO QDAY melatonin 3 mg Tablet 3 mg PO HS PRN (Reason: sleep) famotidine [Pepcid] 20 mg Tablet 20 mg PO QDAY insulin lispro [Humalog U-100 Insulin] 100 unit/mL Solution 1 sliding scale dose SUBCUT USEASDIRECTD ferrous sulfate 325 mg (65 mg iron) tablet 325 mg PO QDAY 30 Days Qty: 30 1RF Hold Instructions: unable to verify. Re evaluate with PCP folic acid 400 mcg Tablet 0.4 mg PO QDAY Referrals: Yared Linares MD [Primary Care Provider] - Isauro Carl MD [Physician] - Lavelle Verma MD [Physician] - Patient/Caregiver Discharge Instructions Print Language: Danish Stand Alone Forms: Keli Award Info., Patient Portal Info Letter Discharge Order Discharge Orders: Discharge (Routine); Ordered 03/23/24 Ordered By: Chela Seay Quality Discharge Quality Measures VTE prophylaxis
[2024-03-23 14:38] LABS: Cocci Serology, IgG Negative (Negative)
--- NOTE | 2024-03-23 21:21 | VVPN_ITS ---
Telemedicine visit statement This visit was conducted with the use of virtual visit was obtained on 03/23/24. Documentation for date of: 03/23/24 Subjective Subjective Interval history: Patient is in telemetry, no complaints reported. Virtual exam Vital Signs Temp Pulse Resp BP Pulse Ox O2 Del Method O2 Flow Rate 97.5 F 95 19 134/86 H 97 Nasal Cannula 2 03/23/24 15:50 03/23/24 15:50 03/23/24 15:50 03/23/24 15:50 03/23/24 15:50 03/23/24 15:50 03/23/24 15:50 Objective Labs 03/23/24 05:20 03/23/24 05:20 Labs: Laboratory Results - last 24 hr 03/21/24 03/23/24 08:37 05:20 WBC 4.6 RBC 3.42 L Hgb 11.5 L Hct 35.7 L MCV 104 H MCH 33.6 MCHC 32.2 RDW Std Deviation 56.7 H Plt Count 115 L Neut % (Auto) 72 Lymph % (Auto) 11 Boundary % (Auto) 14 H Eos % (Auto) 3 Baso % (Auto) 0 Neut # (Auto) 3.3 Lymph # (Auto) 0.5 L Boundary # (Auto) 0.6 Eos # (Auto) 0.2 Baso # (Auto) 0.0 Immature Gran # (Auto) 0.01 H Absolute Nucleated RBC 0.00 Immature Gran % 0 Nucleated RBC % 0 Sodium 131 L Potassium 4.7 Chloride 94 L Carbon Dioxide 27.3 Anion Gap 10 BUN 50 H Creatinine 7.2 H* D Estim Creat Clear Calc 11.3 L eGFR 8 L* BUN/Creatinine Ratio 7 L Glucose 145 H Calculated Osmolality 278 Calcium 8.7 Corrected Calcium 9.1 Phosphorus 5.1 Magnesium 2.2 Total Bilirubin 0.3 AST < 10 ALT < 7 L Alkaline Phosphatase 123 H Total Protein 7.0 Albumin 3.5 Globulin 3.5 Albumin/Globulin Ratio 1.0 L Coccidioides IgG Ab Negative Assessment & Plan Problem List (1) Syncope: Status: Acute Assessment and plan: EEG showed nonspecific slowing, no epileptiform discharges noted. Stable for D/C home FU in 2 weeks. (2) End stage renal failure on dialysis: Status: Chronic Assessment and plan: continue with hemodialysis 3 days a week (3) Hypotension: Status: Chronic Assessment and plan: on midodrine
== END 2024-03-23 15:52 | disposition home or self-care (01) | DRG 139 ==
LOC: SERX 18:28 → SERHOLD 03-21 00:29 → S2NX 03-23 07:38 → S3NX 03-23 07:40 → SERHOLD 03-23 07:40
PROVIDERS: Nurse Practitioner Primary Care; Admitting Provider Student in an Organized Health Care Education/Training Program; Emergency Provider Emergency Medicine; PCP Family Medicine; Visit Provider Internal Medicine
DX: J10.00 Influenza due to other identified influenza virus with unspecified type of pneumonia (principal); J18.9 Pneumonia, unspecified organism; J96.01 Acute respiratory failure with hypoxia; I25.10 Atherosclerotic heart disease of native coronary artery without angina pectoris; I48.91 Unspecified atrial fibrillation; N18.6 End stage renal disease; E11.22 Type 2 diabetes mellitus with diabetic chronic kidney disease; E11.40 Type 2 diabetes mellitus with diabetic neuropathy, unspecified; Z99.2 Dependence on renal dialysis; Z95.1 Presence of aortocoronary bypass graft; I21.A1 Myocardial infarction type 2; Z88.1 Allergy status to other antibiotic agents; E78.5 Hyperlipidemia, unspecified; I50.32 Chronic diastolic (congestive) heart failure; I13.2 Hypertensive heart and chronic kidney disease with heart failure and with stage 5 chronic kidney disease, or end stage renal disease; D63.1 Anemia in chronic kidney disease; N25.0 Renal osteodystrophy; I44.1 Atrioventricular block, second degree
CPT/HCPCS: 36415; 70450; 71045; 80053; 80061; 80307; 83036; 83735; 84100; 84439; 84443; 84484; 85025; 85610; 85730; 86331; 86635; 87077; 87081; 87186; 87205; 87400; 87811; 93306; 94640; 95816; A9270; G0378; J0696; J1643; J1815

== ENCOUNTER → 2024-03-26 | Outpatient (CLI) | payer MEDICAID, SELFPAY ==
[2024-03-11 09:49] VITALS: BMI 291.9
[2024-03-25 16:47] LABS: Basophils % (Auto) 1 % (0-2.5); Eosinophils # (Auto) 0.1 Thou/mm3 (0.0-0.5); Eosinophils % (Auto) 2 % (0-10); Hemoglobin 13.8 g/dL (13.5-16.0); Immature Granulocytes % (Auto) 0 % (0-0); Immature Granulocytes Auto 0.02 Thou/mm3 (0.00-0.00); Lymphocytes # (Auto) 0.7 Thou/mm3 (1.0-4.8); Lymphocytes % (Auto) 12 % (10-50); Mean Corpuscular HGB Conc 32.1 g/dl (31.0-37.0); Mean Corpuscular Hemoglobin 33.7 pg (25.0-35.0); Mean Corpuscular Volume 105 fL (80-100); Monocytes # (Auto) 0.6 Thou/mm3 (0.0-0.8); Monocytes % (Auto) 12 % (0-12); Neutrophils # (Auto) 3.9 Thou/mm3 (1.8-7.7); Neutrophils % (Auto) 73 % (37-80); Nucleated Red Blood Cell % 0 /100 WBC (0); Platelet Count 169 Thou/mm3 (140-440); RDW Standard Deviation 56.1 fL (35.1-43.9); White Blood Count 5.4 Thou/mm3 (3.8-10.6)
[2024-03-26 08:50] VITALS: BP 85/63; PULSE 105; RESP 23; TEMP 36.9; O2SAT 93
[2024-03-26 09:29] LABS: Creatinine (Component) 6.4 mg/dL (0.6-1.3); eGFR 9 See Note
[2024-03-26 09:31] LABS: INR 1.2 (0.9-1.3); Partial Thromboplastin Time 28.5 Seconds (22.0-36.0); Prothrombin Time 12.9 Seconds (9.0-12.2)
== END | disposition home or self-care (01) ==
LOC: SIRX 08:28
PROVIDERS: Radiology Diagnostic Radiology; PCP Family Medicine; Referring Provider Internal Medicine Hematology & Oncology; Visit Provider Internal Medicine Hematology & Oncology
DX: Z53.8 Procedure and treatment not carried out for other reasons (principal); Z01.812 Encounter for preprocedural laboratory examination
CPT/HCPCS: 36415; 82565; 85025; 85610; 85730

== ENCOUNTER 2024-04-15 08:11 | Outpatient (CLI) | payer MEDICAID, SELFPAY ==
[2024-04-14 10:33] LABS: Basophils # (Auto) 0.1 Thou/mm3 (0.0-0.2); Basophils % (Auto) 1 % (0-2.5); Eosinophils # (Auto) 0.1 Thou/mm3 (0.0-0.5); Eosinophils % (Auto) 2 % (0-10); Hematocrit 48.2 % (41.0-53.0); Hemoglobin 15.7 g/dL (13.5-16.0); Immature Granulocytes % (Auto) 0 % (0-0); Immature Granulocytes Auto 0.01 Thou/mm3 (0.00-0.00); Lymphocytes # (Auto) 1.4 Thou/mm3 (1.0-4.8); Lymphocytes % (Auto) 20 % (10-50); Mean Corpuscular HGB Conc 32.6 g/dl (31.0-37.0); Mean Corpuscular Hemoglobin 34.4 pg (25.0-35.0); Mean Corpuscular Volume 106 fL (80-100); Monocytes # (Auto) 0.5 Thou/mm3 (0.0-0.8); Monocytes % (Auto) 7 % (0-12); Neutrophils # (Auto) 4.9 Thou/mm3 (1.8-7.7); Neutrophils % (Auto) 70 % (37-80); Nucleated Red Blood Cell % 0 /100 WBC (0); Platelet Count 131 Thou/mm3 (140-440); RDW Standard Deviation 58.3 fL (35.1-43.9); Red Blood Count 4.56 Miln/mm3 (4.50-5.90)
[2024-04-14 10:40] LABS: INR 1.2 (0.9-1.3); Partial Thromboplastin Time 28.6 Seconds (22.0-36.0); Prothrombin Time 12.5 Seconds (9.0-12.2)
[2024-04-14 12:05] VITALS: BMI 36.7
[2024-04-15] VITALS (11 sets, daily range): BP systolic 104–135; BP diastolic 79–90; PULSE 86–92; RESP 16–20; TEMP 36.8–37.1; O2SAT 99–100
--- NOTE | 2024-04-15 08:30 | XR_ITS ---
Examination: CT-guided percutaneous bone marrow aspiration right posterior superior iliac crest CT-guided percutaneous bone biopsy deep right posterior superior iliac crest CT pelvis without intravenous contrast INDICATIONS: Diagnosis multiple myeloma Date and time of procedure: April 15, 2024 0910 hours Informed consent provided. A timeout was completed verifying correct patient, procedure, site and positioning. Technique: Axial 3 mm sections were obtained for localization of the right posterior superior iliac crest Appropriate area is marked. The patient's site was prepped and draped in sterile fashion Maximal sterile barrier technique utilized, including hand hygiene Local anesthesia was obtained with 1% lidocaine. Low dose protocols were performed. One or more of the following dose reduction techniques were used; automated exposure control, adjustment of the mA and/or KV according to patient size, use of iterative reconstruction technique. Utilizing CT fluoroscopic guidance 14-gauge bone biopsy needle placed in the right posterior superior iliac crest 5 cc marrow aspirate obtained which is adequate 5 cm bone core obtained . Patient appears in stable condition during this procedure. At completion of the procedure, the patient is in satisfactory condition. Estimated blood loss 2 cc Complete pathology report to follow. Impression: Successful CT-guided percutaneous bone marrow aspiration right posterior superior iliac crest Successful CT-guided percutaneous bone biopsy deep right posterior superior iliac crest
[2024-04-15 09:21] LABS: Flow Cytometry* See Sep Rpt
[2024-04-15] MEDS: SODIUM CHLORIDE 0.9% 500 ML 100 ML 20 ML IV (09:30)
[2024-04-15] MEDS: fentaNYL CIT INJ 50 mCg/ML AMP 2ML 75 MCG IV (09:30)
== END 2024-04-15 10:50 | disposition home or self-care (01) ==
PROVIDERS: Radiology Diagnostic Radiology; PCP Family Medicine; Referring Provider Internal Medicine Hematology & Oncology; Visit Provider Internal Medicine Hematology & Oncology
DX: E83.19 Other disorders of iron metabolism (principal); Z01.812 Encounter for preprocedural laboratory examination
CPT/HCPCS: 38221; 36415; 77012; 85025; 85610; 85730; J3010; J7040

== ENCOUNTER 2024-05-07 08:55 | Day surgery (SDC) | payer MEDICAID, SELFPAY ==
[2024-05-01 09:05] VITALS: BMI 36.4
[2024-05-01 12:34] LABS: Basophils # (Auto) 0.1 Thou/mm3 (0.0-0.2); Basophils % (Auto) 1 % (0-2.5); Eosinophils # (Auto) 0.2 Thou/mm3 (0.0-0.5); Eosinophils % (Auto) 3 % (0-10); Hematocrit 45.5 % (41.0-53.0); Hemoglobin 15.1 g/dL (13.5-16.0); Immature Granulocytes % (Auto) 0 % (0-0); Immature Granulocytes Auto 0.01 Thou/mm3 (0.00-0.00); Lymphocytes # (Auto) 1.2 Thou/mm3 (1.0-4.8); Lymphocytes % (Auto) 18 % (10-50); Mean Corpuscular HGB Conc 33.2 g/dl (31.0-37.0); Mean Corpuscular Hemoglobin 35.4 pg (25.0-35.0); Mean Corpuscular Volume 107 fL (80-100); Monocytes # (Auto) 0.6 Thou/mm3 (0.0-0.8); Monocytes % (Auto) 9 % (0-12); Neutrophils # (Auto) 4.6 Thou/mm3 (1.8-7.7); Neutrophils % (Auto) 70 % (37-80); Nucleated Red Blood Cell % 0 /100 WBC (0); Platelet Count 118 Thou/mm3 (140-440); RDW Standard Deviation 57.1 fL (35.1-43.9); Red Blood Count 4.26 Miln/mm3 (4.50-5.90); White Blood Count 6.6 Thou/mm3 (3.8-10.6)
[2024-05-01 12:43] LABS: INR 1.1 (0.9-1.3); Partial Thromboplastin Time 27.3 Seconds (22.0-36.0); Prothrombin Time 12.2 Seconds (9.0-12.2)
[2024-05-01 12:58] LABS: Alanine Aminotransferase 26 U/L (10-49); Albumin, Serum 3.6 gm/dL (3.4-4.8); Alkaline Phosphatase 131 U/L (46-116); Anion Gap 11 (7-16); Aspartate Amino Transferase 23 U/L (0-34); BUN/Creatinine Ratio 6 Ratio (12-20); Bilirubin,Total 0.3 mg/dL (0.3-1.2); Blood Urea Nitrogen 57 mg/dL (9-23); Calcium 8.3 mg/dL (8.3-10.6); Calcium (Corrected) 8.6 mg/dL (8.5-10.1); Carbon Dioxide 27.4 mMol/L (20.0-31.0); Chloride 100 mMol/L (98-107); Creatinine (Component) 9.2 mg/dL (0.6-1.3); Estimated Creatinine Clearance 8.8 mL/min (>60); Globulin 3.7 gm/dL (2.3-3.5); Glucose 196 mg/dL (74-106); Osmolality,Calculated 296 (275-295); Potassium 4.5 mMol/L (3.4-5.1); Sodium 138 mMol/L (136-145); Total Protein 7.3 gm/dL (5.7-8.2); eGFR 6 See Note
[2024-05-07] VITALS (9 sets, daily range): BP systolic 92–119; BP diastolic 65–84; PULSE 65–87; RESP 12–20; TEMP 36.2–36.7; O2SAT 95–100; BMI 35.2
[2024-05-07] MEDS: SODIUM CHLORIDE 0.9% 500 ML 500 ML 20 ML IV (10:06)
[2024-05-07 10:45] LABS: Potassium 4.4 mMol/L (3.4-5.1)
--- NOTE | 2024-05-07 13:29 | ESOP_ITS ---
Date of Procedure 05/07/24 Pre Op Diagnosis End-stage renal disease Post Op Diagnosis Same as preop diagnosis Procedure Creation of arteriovenous fistula in the left upper extremity reviewed the basilic vein transposition Findings Excellent flow in the fistula Procedure Description With the patient supine in her attic general esthesia the left upper extremity sterilely prepped and draped. A timeout was performed. The operation was done by using ultrasound to ensure suitability of the basilic vein for AV fistula creation. An incision was then made from the axilla along the anteromedial aspect of the upper arm curving down to the elbow and onto the proximal portion of the antecubital fossa. Electrocautery was used to get hemostasis and the mean subdermis and subcutaneous tissues were dissected down to the median cubital vein which outflow via both the basilic and the cephalic veins. The basilic vein was ligated and divided and the cephalic vein remained patent. The basilic vein was then mobilized flushed and crossclamped. The dissection was then deepened through the bicipital aponeurosis to expose the brachial artery. Brachial artery was then clamped proximally and distally and logical arteriotomy was made. Stay sutures were placed. The vein was then cut to size and sewn to the artery with a combination of interrupted and running 7-0 Prolene suture. Before completion the vein was back flushed the artery was back flushed and 4 flushed the anastomotic area was irrigated with heparin saline and the anastomosis was completed and flow was established. There was a strong palpable thrill in the fistula. At this point the transposition procedure was performed by using the harmonic focus scalpel to divide the subcutaneous tissues and the fascia to expose the basilic vein all vascular structures were divided without hemoclips or 3-0 silk ties. After the vein was completely mobilized a skin flap was made on the lateral aspect of the incision line and then subcutaneous tissues were reapproximated underneath the vein with a running 3-0 Vicryl and then the skin was reapproximated above the vein with a 4-0 Monocryl subcuticular skin closure. A Prineo dressing was then applied. Patient woke well from anesthesia and was moved to recovery in stable condition having tolerated the procedure well Anesthesia other (Laryngeal mask anesthesia) Implants None Pathology / specimen None Estimated Blood Loss 50 Condition Stable Disposition PACU Surgeon Skyler Baxter MD Surgical Staff Operation Date: 05/07/24 10:30 Case Staff Anesthesiologist: Geovanni Orlando microeconomics professor: Hannah Mosley
--- NOTE | 2024-05-07 13:51 | SUR.PHASEI ---
pt received from OR in recovery bay 4. pt obtunded, breathing unlabored on oxymask 8l, oral airway in place. v/s stable. pt dressing to left arm cdi. report received from Ryan LEMON and Dr. Orlando.
[2024-05-07] MEDS: fentaNYL CIT INJ 50 mCg/ML AMP 2ML 25 MCG IV ×3 (14:09→15:01)
--- NOTE | 2024-05-07 14:21 | SUR.PHASEII ---
pt able to tolerate ice chips without difficulty swallowing or nausea/vomiting.
--- NOTE | 2024-05-07 15:32 | SUR.PHASEII ---
pt awake and alert, breathing unlabored on room air. v/s stable. pt dressing to left arm cdi. pt able to ambulate to wheelchair with steady gait. d/c instructions given with daughter Argelia in room, all questions answered. pt d/c via wheelchair with all belongings.
== END 2024-05-07 15:32 | disposition home or self-care (01) ==
PROVIDERS: Anesthesiology; PCP Family Medicine; Referring Provider Surgery Vascular Surgery; Visit Provider Surgery Vascular Surgery
PROC: (CPT 36825; principal; 2024-05-07 10:15)
DX: E11.22 Type 2 diabetes mellitus with diabetic chronic kidney disease (principal); I12.0 Hypertensive chronic kidney disease with stage 5 chronic kidney disease or end stage renal disease; N18.6 End stage renal disease; I77.0 Arteriovenous fistula, acquired; I25.10 Atherosclerotic heart disease of native coronary artery without angina pectoris; Z95.1 Presence of aortocoronary bypass graft
CPT/HCPCS: 36821; 36415; 80053; 84132; 85025; 85610; 85730; A4217; A4649; J0690; J1644; J1885; J2371; J2405; J2704; J3010; J3490; J7040; J0665

== ENCOUNTER 2024-05-07 22:30 | Emergency (ER) | payer MEDICAID, SELFPAY ==
[2024-05-07 22:36] VITALS: BP 105/87; PULSE 87; RESP 19; TEMP 36.6; O2SAT 95; BMI 39.4
[2024-05-07 22:45] VITALS: PULSE 97; RESP 18; O2SAT 99
--- NOTE | 2024-05-07 23:04 | EDNOTE_ITS ---
ED General RME/HPI General Chief complaint: Wound/Laceration Stated complaint: FISTULA BLEED Time Seen by Provider: 05/07/24 23:03 Arrival date/time: 05/07/24 22:30 Limitations: no limitations RME / HPI RME / HPI narrative: Dr. Doming[facility]'s Main ED Evaluation: 63yo male with a history of ESRD on HD (MWF), DM, HTN, CAD s/p CABG with stents [08/19/2023], HFpEF [60-65%] on 2L, HLD BIBA from home presents to the ED for a chief complaint of fistula bleed. Per EMS, patient had a fistula to his LUE placed today by Dr. Baxter. They report the patient was using the restroom tonight at 2200 when he felt his shirt was wet. EMS notes ~500cc of blood, tourniquet was placed. Related Data Home Medications ?Medication ?Instructions ?Recorded ?Confirmed gabapentin 400 mg capsule 800 mg PO BID PAIN 08/03/19 05/01/24 amiodarone 200 mg tablet 200 mg PO BID 10/19/2305/01 insulin glargine 100 unit/mL 12 unit subcut QAM 05/01/24 subcutaneous solution apixaban 2.5 mg tablet (Eliquis) 2.5 mg PO Q12H 05/01/24 midodrine 10 mg tablet 10 mg PO .bid 04/15/2405/01 cinacalcet 90 mg tablet 90 mg PO DAILY 05/01/2409/18 Previous Rx's ?Medication ?Instructions ?Recorded ferrous sulfate 325 mg (65 mg 325 mg PO QDAY 1 month # 30 tabs 10/19/23 iron) tablet patiromer calcium sorbitex 8.4 8.4 g PO DAILY #30 ea 0 03/22/24 gram oral powder packet (Veltassa) sennosides 8.6 mg tablet (Senna 8.6 mg PO QDAY #14 tab s 03/22/24 Lax) Allergies Allergy/AdvReac Type Severity Reaction Status Date / Time vancomycin Allergy Severe Hives Verified 05/07/24 09:52 Review of Systems Review of Systems Systems Reviewed: All systems reviewed, normal except as documented ED Exam Narrative Physical exam: Appesrs to be in pain General Limitations: Present no limitations General appearance: Present alert and other (laying in the gurney, has some dry blood on his shirt) Head Head exam: Present atraumatic Eye Eye exam: Present normal appearance and EOMI ENT ENT exam: Present normal exam, normal oropharynx and mucous membranes moist Neck Neck exam: Present normal inspection, full ROM and trachea midline Chest Chest inspection: Present normal inspection and symmetric chest wall rise Respiratory Respiratory exam: Present normal lung sounds bilaterally; Absent respiratory distress or wheezes Cardiovascular Cardiovascular exam: Present normal rhythm and tachycardia Abdominal Exam Abdominal exam: Present soft and normal bowel sounds Extremities Exam Extremities exam: Present other (Left upper extremity tourniquet in place. Left upper humerus area. Ecchymosis and swelling above the tourniquet. Dorsal forearm with old fistula. Soft. No thrill. Bilateral hands similar to temperature. Normal sensation. No active oozing of blood or blood shooting from the wound no active oo) Expanded Upper Extremity Exam Neuromotor exam: Normal other (Moving fingers, does not want to bend wrist secondary to pain.) Neurosensory exam: Normal other (Normal sensation to hand and fingers.) Back Exam Back exam: Present normal inspection and full ROM Neurological Exam Neurological exam: Present alert, oriented X3 and CN II-XII intact Psychiatric Psychiatric exam: Present normal affect and normal mood Skin Skin exam: Present dry and normal color Course Quality Measures none Orders Category Date Time Status CBC Stat Lab 05/07/24 23:34 Completed CMP [Comprehensive Metabolic Panel] Stat Lab 05/07/24 23:34 Ordered PT [Prothrombin Time with INR] Stat Lab 05/07/24 23:34 Completed PTT [Partial Thromboplastin Time] Stat Lab 05/07/24 23:34 Completed Packed Cells [Red Blood Cells] Stat Lab 05/07/24 23:34 Results Type and Screen Stat Lab 05/07/24 23:34 Results Tranexamic Acid 1,000 mg Ivpb [Tranexamic Acid Ivpb] Med 05/07/24 23:36 Active 1,000 mg in 100 ml IV [id number] fentaNYL INJ [Sublimaze Inj] Med 05/08/24 00:01 Discontinued 100 mcg IVP X1 ONE Vital Signs Vital signs: Vital Signs Temperature 97.8 F 05/07/24 22:36 Pulse Rate 87 05/07/24 22:36 Respiratory Rate 19 05/07/24 22:36 Blood Pressure 105/87 H 05/07/24 22:36 Pulse Oximetry (%) 95 05/07/24 22:36 Oxygen Delivery Method Oxy Mask 05/07/24 22:36 Oxygen Flow Rate 15 05/07/24 22:36 [facility] Patient data External records reviewed:: [facility] previous records (Reviewed outpatient procedure note by Dr. Baxter from earlier today.) Clinical information provided by:: patient and EMS Social determinants that could affect healthcare access:: none Patient has the following chronic illnesses:: ESRD on HD (MWF), DM, HTN, CAD s/p CABG with stents [08/19/2023], HFpEF [60-65%] on 2L, HLD How is presenting disease/condition affected by chronic disease/condition?: u neffected by Evaluation data The following diagnostics were reviewed and interpreted by me:: lab results Lab and/or radiology exams considered but not ordered:: none Interpretation Summary: PTT is normal, PT and INR are normal. Medications Medications considered but not ordered:: none Medication administrations:: Medication Administration History Tranexamic Acid (Tranexamic Acid Ivpb) 1,000 mg in 100 mls @ 200 mls/hr IV PRNMRX1 PRN PRN Reason: BLEEDING Last Admin: 05/08/24 00:04 Dose: 200 mls/hr Documented By: JACQUELINE Discontinued Medications Fentanyl Citrate (Fentanyl Cit Inj 50 Mcg/Ml Amp 2ml) 100 mcg IVP X1 ONE Stop: 05/08/24 00:02 Last Admin: 05/08/24 00:07 Dose: 100 mcg Documented By: JACQUELINE see above Consultations Consultation(s) initiated? (list below): Yes Consultation #1 (Physician, Specialty, Details): See MDM narrtive. Diagnosis Differential Diagnosis ED Complaint MDM: post-op bleeding, fistula bleeding, postop complication, fistula malfunctio Most likely diagnosis given after review of the tests above:: see clinical impression below Admission Indicated Admission indicated?: not indicated Explain why admission is indicated or not indicated:: Patient requires a higher [id number]. Admission Request Was there a request for admission?: No Disposition Plan Disposition Plan: Transfer (to [facility]) Medical Decision Making MDM Narrative MDM Narrative: 7649: Patient is beginning to have trouble moving his fingers, unsure if it's due to the patient having pain or increased swelling. He is able to feel sensations, normal to touch. Both of his hands are cold, one is not worse than the other. Patient is receiving TXA IV. Dialysis nurse at the bedside during the examination. 2358: Spoke with [facility]'s transfer center. Dr. Ted Reynolds from [facility] accepts the patient for transfer. 0015: EMS at bedside for transfer. Differential Diagnosis Differential Diagnosis: post-op bleeding, fistula bleeding, postop complication, fistula malfunctio Lab Data 05/07/24 23:34 05/07/24 23:34 Labs: Lab Results 05/07/24 Range/Units 23:34 WBC 6.8 (3.8-10.6) Thou/mm3 RBC 3.69 L (4.50-5.90) Miln/mm3 Hgb 13.0 L D (13.5-16.0) g/dL Hct 38.3 L (41.0-53.0) % MCV 104 H (80-100) fL MCH 35.2 H (25.0-35.0) pg MCHC 33.9 (31.0-37.0) g/dl RDW Std Deviation 53.0 H (35.1-43.9) fL Plt Count 131 L (140-440) Thou/mm3 Neut % (Auto) 92 H (37-80) % Lymph % (Auto) 5 L (10-50) % [place] % (Auto) 3 (0-12) % Eos % (Auto) 0 (0-10) % Baso % (Auto) 0 (0-2.5) % Neut # (Auto) 6.2 (1.8-7.7) Thou/mm3 Lymph # (Auto) 0.3 L (1.0-4.8) Thou/mm3 [place] # (Auto) 0.2 (0.0-0.8) Thou/mm3 Eos # (Auto) 0.0 (0.0-0.5) Thou/mm3 Baso # (Auto) 0.0 (0.0-0.2) Thou/mm3 Immature Gran # (Auto) 0.02 H (0.00-0.00) Thou/mm3 Absolute Nucleated RBC 0.00 (0.00-0.00) Thou/mm3 Immature Gran % 0 (0-0) % Nucleated RBC % 0 (0) /100 WBC PT 12.0 (9.0-12.2) Seconds INR 1.1 (0.9-1.3) APTT 27.5 (22.0-36.0) Seconds Crossmatch See Detail Blood Bank Wristband ID Yes Critical Care Time Critical Care Time Critical Care Time: Yes Total Critical Care Time (min.): 45 Attestation: The high probability of sudden, clinically significant deterioration in the patient?s condition required the highest level of my preparedness to intervene urgently. The services I provided to this patient were to treat and/or prevent clinically significant deterioration. Services included the following: chart data review, reviewing nursing notes and/or old charts, documentation time, education sales consultant collaboration regarding findings and treatment options, medication orders and management, direct patient care, vital sign assessments and ordering, interpreting and reviewing diagnostic studies and lab tests. Aggregate critical care time includes only time during which I was engaged in work directly related to the patient?s care, as described above, whether at bedside or elsewhere in the Emergency Department. It did not include time spent performing other reported procedures or the services of residents, students, nurses or physician assistants. Discharge Plan Plan Patient Disposition: [facility] Pt Being Transferred to: [facility] Service Needed for Transfer: Vascular Surgery Disposition Comment: Accepted by Dr. Ted Reynolds Patient condition on transfer: Benefits outweigh risks Prescriptions/Referrals Prescriptions/Med Rec: No Action gabapentin 400 MG capsule 800 mg PO BID insulin glargine 100 unit/mL Solution 12 unit SUBCUT QAM amiodarone 200 mg Tablet 200 mg PO BID ferrous sulfate 325 mg (65 mg iron) tablet 325 mg PO QDAY 30 Days Qty: 30 1RF cinacalcet 90 mg tablet 90 mg PO DAILY sennosides [Senna Lax] 8.6 mg Tablet 8.6 mg PO QDAY Qty: 14 0RF Veltassa 8.4 gram Powder In Packet 8.4 g PO DAILY Qty: 30 0RF midodrine 10 mg tablet 10 mg PO .bid Patient Comments: TAKE ONE TABLET BY MOUTH TWICE DAILY Eliquis 2.5 mg tablet 2.5 mg PO Q12H Referrals: No Primary/Family,Physician [Primary Care Provider] - In 1 week Problem List Clinical Impression: Post-operative complication, Post-op bleeding, Hemorrhage of arteriovenous fistula, ESRD on hemodialysis Patient/Caregiver Discharge Instructions Print Language: Hungarian Stand Alone Forms: Keli Award Info., Patient Portal Info Letter
[2024-05-07 23:10] VITALS: BP 124/82; RESP 24; TEMP 36.7; O2SAT 100
--- NOTE | 2024-05-07 23:25 | PC.NURSE ---
Pt arrived with pressure dressing applied by ems to L upper arm . Bleeding controlled. Pt does co cramping poain and tingling to hand, however cap refill distal to upper arm was brisk. Puls strong.
[2024-05-07 23:30] VITALS: BP 128/79; PULSE 122; RESP 22; O2SAT 100
[2024-05-07 23:52] LABS: Basophils % (Auto) 0 % (0-2.5); Eosinophils % (Auto) 0 % (0-10); Hematocrit 38.3 % (41.0-53.0); Immature Granulocytes % (Auto) 0 % (0-0); Immature Granulocytes Auto 0.02 Thou/mm3 (0.00-0.00); Lymphocytes # (Auto) 0.3 Thou/mm3 (1.0-4.8); Lymphocytes % (Auto) 5 % (10-50); Mean Corpuscular HGB Conc 33.9 g/dl (31.0-37.0); Mean Corpuscular Hemoglobin 35.2 pg (25.0-35.0); Mean Corpuscular Volume 104 fL (80-100); Monocytes # (Auto) 0.2 Thou/mm3 (0.0-0.8); Monocytes % (Auto) 3 % (0-12); Neutrophils # (Auto) 6.2 Thou/mm3 (1.8-7.7); Neutrophils % (Auto) 92 % (37-80); Nucleated Red Blood Cell % 0 /100 WBC (0); Platelet Count 131 Thou/mm3 (140-440); Red Blood Count 3.69 Miln/mm3 (4.50-5.90); White Blood Count 6.8 Thou/mm3 (3.8-10.6)
[2024-05-07 23:59] LABS: INR 1.1 (0.9-1.3); Partial Thromboplastin Time 27.5 Seconds (22.0-36.0)
[2024-05-08 00:01] VITALS: BP 128/80; RESP 20; O2SAT 2
[2024-05-08] MEDS: TRANEXAMIC ACID 1,000 MG IVPB 1,000 MG/100 ML BAG 200 MG IV (00:04)
[2024-05-08] MEDS: fentaNYL CIT INJ 50 mCg/ML AMP 2ML 100 MCG IVP (00:07)
--- NOTE | 2024-05-08 00:30 | PC.NURSE ---
EMS here. Report Given to EMS Ivelisse. Rep[ort called to Mary LEMON at [facility]. pt transfered.
== END 2024-05-08 00:42 | disposition short-term general hospital (02) ==
PROVIDERS: Emergency Provider Emergency Medicine
DX: T82.838A Hemorrhage due to vascular prosthetic devices, implants and grafts, initial encounter (principal); I13.2 Hypertensive heart and chronic kidney disease with heart failure and with stage 5 chronic kidney disease, or end stage renal disease; N18.6 End stage renal disease; I50.32 Chronic diastolic (congestive) heart failure; I25.10 Atherosclerotic heart disease of native coronary artery without angina pectoris; E11.22 Type 2 diabetes mellitus with diabetic chronic kidney disease; E78.5 Hyperlipidemia, unspecified; Z99.2 Dependence on renal dialysis; Z95.1 Presence of aortocoronary bypass graft
CPT/HCPCS: 36415; 80053; 85025; 85610; 85730; 86850; 86900; 86901; 96365; 96375; 99291; J3010; J3490

== ENCOUNTER 2024-06-16 11:21 | Outpatient (RCR) | payer MEDICAID, SELFPAY ==
--- NOTE | 2024-06-16 14:04 | CTCFLWUP_ITS ---
Patient: VINCE QUILES : 1960 Page 2 of 2 FOLLOW UP NOTE DATE OF SERVICE: 06/16/2024 NAME: VINCE QUILES ACCOUNT: [id number] : 1960 AGE: 63 INTERVAL HISTORY: Vince schwab is a patient with a history of concerning lesions on previous scans. He presents for follow-up after undergoing several diagnostic tests to rule out cancer. ONCOLOGY HISTORY: DIAGNOSIS: Other specified disorders of bone, unspecified site [ICD10] M89.8X9 DATE OF DIAGNOSIS: No confirmed diagnosis STAGE/TNM: TREATMENT HISTORY: Care?Plan Start?Date Cycle Day Intent HISTORY OF PRESENT ILLNESS: 63-year-old male who was seen to diagnose him as was found to have lytic lesion The patient had been seen in January with concerns about lesions detected on scans. Since then, he has completed a bone marrow biopsy in March, which was reported as normal with no evidence of blood cancer. Additionally, a brain MRI and a nuclear bone study were performed, both of which were negative for cancer. Despite these negative findings, the patient still has unresolved bone problems of unclear etiology. The clinician plans to investigate non-malignant causes for these bone issues, including scheduling a bone density test to assess bone strength. The patient no longer requires oncology follow-up but has been offered the option to review his test results one more time before being cleared. He appears to be relieved by the news that he does not have cancer. Laboratory, Imaging, and Diagnostic Test Results - Bone marrow biopsy (March 2024): Normal, no evidence of cancer - Brain MRI: Negative - Nuclear bone study: Negative for cancer OTHER MEDICAL HISTORY/CONDITIONS: diabetic??end?stage?renal??chf fistula left arm eye lasic surg gallbladder FAMILY HISTORY: Patient?denies?family?cancer?history. SOCIAL HISTORY: Occupational?History:?disabled Education?Level:?Completed High School Marital?Status:? Tobacco?Pack?per?Day:?1 Tobacco?Use?Years:?15 ETOH Use:?etoh issues 15 clean / 13 yrs Drug?Note:?marajuana Social History Note:?lives with his mother MEDICATIONS: 1. amlodipine - 5 mg 1 tab Twice a Day 2. CINACALCET HCL - 90 mg Daily 3. Eliquis - 2.5 mg Twice a Day 4. gabapentin - 800 mg 1 tab Twice a Day 5. metoprolol succinate - 25 mg Daily 6. sevelamer carbonate - 800 mg 1 tab Daily 7. Vitamin D3 - 1,000 unit 1 tab Daily Medications Last Reconciled by Rosa Shafer MA on 06/16/2024 ALLERGIES: VANCOMYCIN HCL REVIEW OF SYSTEMS: A complete 14-point review of systems was performed and is negative except as noted in interval history. PHYSICAL EXAMINATION: VITAL SIGNS: Temperature?98.7, B/P?170/91, Oxygen?Saturation?100% PAIN: 0 - No pain ECOG Performance Status: 2 - Symptomatic; ambulatory; capable of self-care; >50% of waking hrs. not in bed GENERAL APPEARANCE: Appears well, in no apparent distress, appropriately interactive.. Patient is in wheelchair. HEENT: Normocephalic, no temporal wasting, normal conjunctiva, no scleral icterus, normal hearing, lips without lesions, neck normal range of motion. CARDIOVASCULAR: Not assessed. PULMONARY: Normal respiratory effort, no respiratory distress or use of accessory muscles, speaking in full sentences, no tachypnea. EXTREMITIES: No pedal edema or cyanosis. SKIN: Normal skin appearance. NEUROLOGIC: Alert and oriented x4. PSHYCHIATRIC: Appropriate affect, mood normal, behavior normal, intact thought and speech. LABORATORY DATA: I have personally reviewed and interpreted each of the patient?s relevant lab tests, abnormal findings are below: Date 05/01/24 05/07/24 ??WHITE?BLOOD?COUNT?(Thou/mm3) 6.6 ? 6.8 ??RED?BLOOD?COUNT?(Miln/mm3) 4.26?L ? 3.69?L ??HEMOGLOBIN?(gm/dl) 15.1 ? 13.0?L ??HEMATOCRIT?(%) 45.5 ? 38.3?L ??PLATELET?COUNT?(Thou/mm3) 118?L ? 131?L ??NEUTROPHILS?%,?AUTO?(%) 70 ? 92?H ??LYMPH?%,?AUTO?(%) 18 ? 5?L ??NEUTROPHILS,?AUTO?(Thou/mm3) 4.6 ? 6.2 ??GLUCOSE,RANDOM?(mg/dL) 196?H ?BLOOD?UREA?NITROGEN?(mg/dL) 57?H ?CREATININE?(mg/dL) 9.20?HH ?SODIUM?(mmol/L) 138 ?POTASSIUM?(mmol/L) 4.5 4.4 ? ??CHLORIDE?(mmol/L) 100 ?CrCl?(CandG)?(ml/min) 8.63 ?AST/SGOT?(Unit/L) 23 ?ALT/SGPT?(Unit/L) 26 ?ALKALINE?PHOSPHATASE?(Unit/L) 131?H ?BILIRUBIN,?TOTAL?(mg/dL) 0.3 ?PROTEIN?TOTAL?(gm/dl) 7.3 ?ALBUMIN,?SERUM?(gm/dl) 3.6 ?GLOBULIN?(gm/dl) 3.7?H ?ALBUMIN/GLOBULIN?RATIO 1.0?L ?CALCIUM,?SERUM?(mg/dL) 8.3 ?CALCIUM?SERUM?(CORRECTED)?(mg/dL) 8.6 ? ? ASSESSMENT/PLAN: Osteolytic lesions concerning for multiple myeloma Patient have osteolytic lesions on the CT scans Patient do not have confirmed diagnosis There is no paraproteinemia Patient had concerning lesions on previous scans, prompting further investigation. Bone marrow biopsy completed in March was normal, showing no evidence of blood cancer. Brain MRI and nuclear bone study were both negative for cancer. Given these results, blood cancer has been ruled out. The etiology of the bone lesions remains unknown, necessitating consideration of non- malignant causes. Plan: - Perform bone density scan to assess bone strength and potential fracture risk - Follow-up appointment in 2 months to review test results - No further oncology follow-up required unless patient desires to review test results once more ORDERS: Order # Description [id number] CEA [id number] Follow Up 2 Months [id number] Comprehensive Metabolic Panel - 12 + CBC with Auto Diff RETURN TO CLINIC: 6 to 8 weeks BILLING AND COMPLIANCE: I reviewed external records from providers outside my specialty as summarized above. I spent a total of 50 minutes on this patient?s care on the day of their visit excluding time spent related to any billed procedures. This time includes time spent with the patient as well as time spent documenting in the medical record, reviewing patients records and tests, obtaining history, placing orders, communicating with other healthcare professionals, counseling the patient, family or caregiver, and/or care coordination for the diagnoses above. Electronically Signed by: Jose C Craig MD T: 2:02 PM CC: PCP: Yared Linares Referring: Yared Linares This document was completed utilizing speech recognition software. Grammatical errors, random word insertions, pronoun errors, and incomplete sentences are an occasional consequence of this system due to software limitations, ambient noise, and hardware issues. Any formal questions or concerns about the content, text or information contained within the body of this dictation should be directly addressed to the provider for clarification.
== END 2024-06-24 23:59 | disposition home or self-care (01) ==
LOC: SCTC 11:21
PROVIDERS: PCP Family Medicine; Referring Provider Family Medicine; Visit Provider Internal Medicine Hematology & Oncology
DX: M89.8X9 Other specified disorders of bone, unspecified site (principal)
CPT/HCPCS: 99213; G0463

== ENCOUNTER → 2024-07-21 | Outpatient (CLI) | payer MEDICAID, SELFPAY ==
[2024-07-21 14:18] LABS: Basophils # (Auto) 0.1 Thou/mm3 (0.0-0.2); Basophils % (Auto) 1 % (0-2.5); Eosinophils # (Auto) 0.2 Thou/mm3 (0.0-0.5); Eosinophils % (Auto) 5 % (0-10); Hematocrit 38.1 % (41.0-53.0); Hemoglobin 12.6 g/dL (13.5-16.0); Immature Granulocytes % (Auto) 0 % (0-0); Immature Granulocytes Auto 0.01 Thou/mm3 (0.00-0.00); Lymphocytes # (Auto) 1.1 Thou/mm3 (1.0-4.8); Lymphocytes % (Auto) 20 % (10-50); Mean Corpuscular HGB Conc 33.1 g/dl (31.0-37.0); Mean Corpuscular Hemoglobin 34.4 pg (25.0-35.0); Mean Corpuscular Volume 104 fL (80-100); Monocytes # (Auto) 0.6 Thou/mm3 (0.0-0.8); Monocytes % (Auto) 11 % (0-12); Neutrophils # (Auto) 3.3 Thou/mm3 (1.8-7.7); Neutrophils % (Auto) 63 % (37-80); Nucleated Red Blood Cell % 0 /100 WBC (0); Platelet Count 132 Thou/mm3 (140-440); RDW Standard Deviation 57.3 fL (35.1-43.9); Red Blood Count 3.66 Miln/mm3 (4.50-5.90); White Blood Count 5.2 Thou/mm3 (3.8-10.6)
[2024-07-21 14:25] LABS: Alanine Aminotransferase 13 U/L (10-49); Albumin, Serum 3.8 gm/dL (3.4-4.8); Albumin/Globulin Ratio 1.2 (1.2-2.2); Alkaline Phosphatase 118 U/L (46-116); Anion Gap 13 (7-16); Aspartate Amino Transferase 19 U/L (0-34); BUN/Creatinine Ratio 7 Ratio (12-20); Bilirubin,Total 0.3 mg/dL (0.3-1.2); Blood Urea Nitrogen 55 mg/dL (9-23); Calcium 8.1 mg/dL (8.3-10.6); Calcium (Corrected) 8.3 mg/dL (8.5-10.1); Carbon Dioxide 28.3 mMol/L (20.0-31.0); Chloride 94 mMol/L (98-107); Creatinine (Component) 7.9 mg/dL (0.6-1.3); Globulin 3.1 gm/dL (2.3-3.5); Glucose 172 mg/dL (74-106); Osmolality,Calculated 289 (275-295); Potassium 5.6 mMol/L (3.4-5.1); Prostate Specific Antigen 0.15 ng/mL (0-4.00); Sodium 135 mMol/L (136-145); Total Protein 6.9 gm/dL (5.7-8.2); eGFR 7 See Note
[2024-07-21 14:28] LABS: Carcinoembryonic Antigen 14.6 ng/mL (0.0-5.0)
== END | disposition home or self-care (01) ==
LOC: SCTO 13:18
PROVIDERS: PCP Family Medicine; Referring Provider Internal Medicine Hematology & Oncology; Visit Provider Internal Medicine Hematology & Oncology
DX: M89.8X9 Other specified disorders of bone, unspecified site (principal)
CPT/HCPCS: 36415; 80053; 82378; 84153; 85025

== ENCOUNTER → 2024-07-31 | Outpatient (CLI) | payer MEDICAID, SELFPAY ==
--- NOTE | 2024-07-31 12:20 | XR_ITS ---
Examination: Bone densitometry Date and time of exam:July 31, 2024 1335 hours INDICATIONS: 64-year-old male with diagnosis age related osteoporosis, diabetic Technique: Lumbar spine and hip total bone mineralization values of an calculated. Peak reference and age match control results have been displayed. Findings: Lumbar spine total bone mineralization is0.851 gm/cm2. This is 2.2 standard deviations below peak reference. This is 1.5 standard deviations below age-matched controls. Hip total bone mineralization is 0.795 gm/cm2 This is 2.0 standard deviations below peak reference. This is 1.5 standard deviations below age-matched controls Impression: There is osteopenia based on lumbar spine measurements. There is osteopenia based on hip measurements
== END | disposition home or self-care (01) ==
PROVIDERS: PCP Student in an Organized Health Care Education/Training Program; Referring Provider Internal Medicine Hematology & Oncology; Visit Provider Internal Medicine Hematology & Oncology
DX: M85.89 Other specified disorders of bone density and structure, multiple sites (principal)
CPT/HCPCS: 77080

== ENCOUNTER → 2024-09-15 | Outpatient (CLI) | payer MEDICAID, SELFPAY ==
[2024-09-15 17:38] LABS: Basophils # (Auto) 0.1 Thou/mm3 (0.0-0.2); Basophils % (Auto) 1 % (0-2.5); Eosinophils # (Auto) 0.2 Thou/mm3 (0.0-0.5); Eosinophils % (Auto) 4 % (0-10); Hematocrit 37.2 % (41.0-53.0); Hemoglobin 13.0 g/dL (13.5-16.0); Immature Granulocytes Auto 0.00 Thou/mm3 (0.00-0.00); Lymphocytes # (Auto) 0.9 Thou/mm3 (1.0-4.8); Lymphocytes % (Auto) 18 % (10-50); Mean Corpuscular HGB Conc 34.9 g/dl (31.0-37.0); Mean Corpuscular Hemoglobin 34.5 pg (25.0-35.0); Mean Corpuscular Volume 99 fL (80-100); Monocytes # (Auto) 0.5 Thou/mm3 (0.0-0.8); Monocytes % (Auto) 9 % (0-12); Neutrophils # (Auto) 3.7 Thou/mm3 (1.8-7.7); Neutrophils % (Auto) 69 % (37-80); Nucleated Red Blood Cell # 0.00 Thou/mm3 (0.00-0.00); Nucleated Red Blood Cell % 0 /100 WBC (0); Platelet Count 118 Thou/mm3 (140-440); RDW Standard Deviation 49.5 fL (35.1-43.9); Red Blood Count 3.77 Miln/mm3 (4.50-5.90); White Blood Count 5.4 Thou/mm3 (3.8-10.6)
[2024-09-15 17:49] LABS: Prostate Specific Antigen 0.20 ng/mL (0-4.00)
[2024-09-15 17:51] LABS: Alanine Aminotransferase 16 U/L (10-49); Albumin, Serum 3.8 gm/dL (3.4-4.8); Albumin/Globulin Ratio 1.0 (1.2-2.2); Alkaline Phosphatase 128 U/L (46-116); Anion Gap 10 (7-16); Aspartate Amino Transferase 18 U/L (0-34); BUN/Creatinine Ratio 5 Ratio (12-20); Bilirubin,Total 0.5 mg/dL (0.3-1.2); Blood Urea Nitrogen 36 mg/dL (9-23); Calcium 10.2 mg/dL (8.3-10.6); Calcium (Corrected) 10.4 mg/dL (8.5-10.1); Carbon Dioxide 31.5 mMol/L (20.0-31.0); Chloride 94 mMol/L (98-107); Creatinine (Component) 7.7 mg/dL (0.6-1.3); Globulin 3.7 gm/dL (2.3-3.5); Glucose 148 mg/dL (74-106); Osmolality,Calculated 281 (275-295); Potassium 5.4 mMol/L (3.4-5.1); Sodium 135 mMol/L (136-145); Total Protein 7.5 gm/dL (5.7-8.2); eGFR 7 See Note
[2024-09-15 17:52] LABS: Carcinoembryonic Antigen 6.8 ng/mL (0.0-5.0)
== END | disposition home or self-care (01) ==
LOC: SCTO 16:08
PROVIDERS: PCP Student in an Organized Health Care Education/Training Program; Referring Provider Internal Medicine Hematology & Oncology; Visit Provider Internal Medicine Hematology & Oncology
DX: M89.8X9 Other specified disorders of bone, unspecified site (principal)
CPT/HCPCS: 36415; 80053; 82378; 84153; 85025

== ENCOUNTER 2024-09-22 11:19 | Outpatient (RCR) | payer MEDICAID, SELFPAY ==
--- NOTE | 2024-10-04 18:46 | CTCFLWUP_ITS ---
Patient: VINCE QUILES : 1960 Page 3 of 4 FOLLOW UP NOTE DATE OF SERVICE: 09/22/2024 NAME: VINCE QUILES ACCOUNT: [id number] : 1960 AGE: 64 INTERVAL HISTORY: Vince schwab is a patient with a history of concerning lesions on previous scans. He presents for follow-up after undergoing several diagnostic tests to rule out cancer. ONCOLOGY HISTORY: DIAGNOSIS: Other specified disorders of bone, unspecified site [ICD10] M89.8X9 DATE OF DIAGNOSIS: No confirmed diagnosis HISTORY OF PRESENT ILLNESS: 64-year-old male who was seen to diagnose him as was found to have lytic lesion The patient had been seen in January with concerns about lesions detected on scans. Since then, he has completed a bone marrow biopsy in March, which was reported as normal with no evidence of blood cancer. Additionally, a brain MRI and a nuclear bone study were performed, both of which were negative for cancer. Despite these negative findings, the patient still has unresolved bone problems of unclear etiology. The clinician plans to investigate non-malignant causes for these bone issues, including scheduling a bone density test to assess bone strength. The patient no longer requires oncology follow-up but has been offered the option to review his test results one more time before being cleared. He appears to be relieved by the news that he does not have cancer. Laboratory, Imaging, and Diagnostic Test Results - Bone marrow biopsy (March 2024): Normal, no evidence of cancer - Brain MRI: Negative - Nuclear bone study: Negative for cancer 07/31/2024 bone density shows osteopenia in his lumbar spine and hip 04/15/2024 bone marrow biopsy showed iron storage increased without ring sideroblasts. Normocellular marrow no atypical features no evidence of primary or metastatic disease 03/18/2024 brain MRI negative 08/25/2023 diagnostic bone study showed no metastasis disease 08/14/2023 CT scan chest abdominal pelvis no cancer 12/19/2023 showed small circumcise osteolytic lesion 3 mm in the distal right humerus. Bone marrow biopsy was completed in March and came back negative OTHER MEDICAL HISTORY/CONDITIONS: diabetic??end?stage?renal??chf fistula left arm eye lasic surg gallbladder FAMILY HISTORY: Patient?denies?family?cancer?history. SOCIAL HISTORY: Occupational?History:?disabled Education?Level:?Completed High School Marital?Status:? Tobacco?Pack?per?Day:?1 Tobacco?Use?Years:?15 ETOH Use:?etoh issues 15 clean / 13 yrs Drug?Note:?gladys Social History Note:?lives with his mother MEDICATIONS: 1. CINACALCET HCL - 90 mg Daily 2. Eliquis - 2.5 mg Twice a Day 3. gabapentin - 800 mg 1 tab Twice a Day 4. Lipitor - 10 mg 1 tab Daily 5. midodrine - 10 mg 1 tab Daily 6. sevelamer carbonate - 800 mg 1 tab Daily 7. Vitamin D3 - 1,000 unit 1 tab Daily Medications Last Reconciled by Rosa Shafer MA on 09/22/2024 ALLERGIES: VANCOMYCIN HCL REVIEW OF SYSTEMS: A complete 14-point review of systems was performed and is negative except as noted in interval history. PHYSICAL EXAMINATION: VITAL SIGNS: Temperature?99, B/P?155/104, Oxygen?Saturation?97% Weight?203?lbs PAIN: None ECOG Performance Status: 0 - Asymptomatic and fully active GENERAL APPEARANCE: Appears well, in no apparent distress, appropriately interactive.. Patient is in wheelchair. HEENT: Normocephalic, no temporal wasting, normal conjunctiva, no scleral icterus, normal hearing, lips without lesions, neck normal range of motion. CARDIOVASCULAR: Not assessed. PULMONARY: Normal respiratory effort, no respiratory distress or use of accessory muscles, speaking in full sentences, no tachypnea. EXTREMITIES: No pedal edema or cyanosis. SKIN: Normal skin appearance. NEUROLOGIC: Alert and oriented x4. PSHYCHIATRIC: Appropriate affect, mood normal, behavior normal, intact thought and speech. LABORATORY DATA: I have personally reviewed and interpreted each of the patient?s relevant lab tests, abnormal findings are below: Date 07/21/24 09/15/24 ??WHITE?BLOOD?COUNT?(Thou/mm3) 5.2 5.4 ??RED?BLOOD?COUNT?(Miln/mm3) 3.66?L 3.77?L ??HEMOGLOBIN?(gm/dl) 12.6?L 13.0?L ??HEMATOCRIT?(%) 38.1?L 37.2?L ??PLATELET?COUNT?(Thou/mm3) 132?L 118?L ??NEUTROPHILS?%,?AUTO?(%) 63 69 ??LYMPH?%,?AUTO?(%) 20 18 ??NEUTROPHILS,?AUTO?(Thou/mm3) 3.3 3.7 ??GLUCOSE,RANDOM?(mg/dL) ? 148?H ??BLOOD?UREA?NITROGEN?(mg/dL) ? 36?H ??CREATININE?(mg/dL) ? 7.70?HH ??SODIUM?(mmol/L) ? 135?L ??POTASSIUM?(mmol/L) ? 5.4?H ??CHLORIDE?(mmol/L) ? 94?L ??CrCl?(CandG)?(ml/min) ? 10.18 ??AST/SGOT?(Unit/L) ? 18 ??ALT/SGPT?(Unit/L) ? 16 ??ALKALINE?PHOSPHATASE?(Unit/L) ? 128?H ??BILIRUBIN,?TOTAL?(mg/dL) ? 0.5 ??PROTEIN?TOTAL?(gm/dl) ? 7.5 ??ALBUMIN,?SERUM?(gm/dl) ? 3.8 ??GLOBULIN?(gm/dl) ? 3.7?H ??ALBUMIN/GLOBULIN?RATIO ? 1.0?L ??CALCIUM,?SERUM?(mg/dL) ? 10.2 ??CALCIUM?SERUM?(CORRECTED)?(mg/dL) ? 10.4?H ??CEA?(O*)?(ng/ml) ? 6.8?H ASSESSMENT/PLAN: Osteolytic lesions concerning for multiple myeloma Patient have osteolytic lesions on the CT scans Patient do not have confirmed diagnosis There is no paraproteinemia Patient had concerning lesions on previous scans, prompting further investigation. Bone marrow biopsy completed in March was normal, showing no evidence of blood cancer. Brain MRI and nuclear bone study were both negative for cancer. Given these results, blood cancer has been ruled out. The etiology of the bone lesions remains unknown, necessitating consideration of non- malignant causes. Bone marrow biopsy negative Patient can continue to follow with primary care For osteopenia patient can be started on Zometa once have dental clearance Advised to take calcium and vitamin D3 daily ORDERS: Order # Description [id number] CEA [id number] CT Scan + Abdomen and Pelvis + With W/O Contrast [id number] MD Follow Up 2 Months RETURN TO CLINIC: I reviewed the diagnosis, prognosis, and recommended treatment/procedure options with the patient (and/or their legal bilingual inside sales representative), including the potential benefits, risks, side effects and alternative therapies. We also discussed the option of no treatment and the possibility of clinical trial participation, if applicable. All questions were addressed, and they demonstrated understanding. They provided informed consent to proceed with the proposed plan of care. BILLING AND COMPLIANCE: I reviewed external records from providers outside my specialty as summarized above. I spent a total of 50 minutes on this patient?s care on the day of their visit excluding time spent related to any billed procedures. This time includes time spent with the patient as well as time spent documenting in the medical record, reviewing patients records and tests, obtaining history, placing orders, communicating with other healthcare professionals, counseling the patient, family or caregiver, and/or care coordination for the diagnoses above. Electronically Signed by: {Object.Sanct_ID*PnP.NameFL@M}, {Object.Sanct_ID*PnP.Suffix@U} D: {Object.Sanct_Date} T: {Object.Sanct_Time} CC: PCP: Dianne Lopez Referring: Dianne Lopez This document was completed utilizing speech recognition software. Grammatical errors, random word insertions, pronoun errors, and incomplete sentences are an occasional consequence of this system due to software limitations, ambient noise, and hardware issues. Any formal questions or concerns about the content, text or information contained within the body of this dictation should be directly addressed to the provider for clarification.
== END 2024-09-24 23:59 | disposition home or self-care (01) ==
LOC: SCTC 11:19
PROVIDERS: PCP Student in an Organized Health Care Education/Training Program; Referring Provider Student in an Organized Health Care Education/Training Program; Visit Provider Internal Medicine Hematology & Oncology
DX: M89.8X9 Other specified disorders of bone, unspecified site (principal); M85.80 Other specified disorders of bone density and structure, unspecified site
CPT/HCPCS: 99212; G0463

== ENCOUNTER → 2024-10-23 | Outpatient (CLI) | payer MEDICAID, SELFPAY ==
[2024-10-23 13:19] LABS: Basophils # (Auto) 0.1 Thou/mm3 (0.0-0.2); Basophils % (Auto) 1 % (0-2.5); Eosinophils # (Auto) 0.1 Thou/mm3 (0.0-0.5); Eosinophils % (Auto) 3 % (0-10); Hematocrit 38.8 % (41.0-53.0); Hemoglobin 12.7 g/dL (13.5-16.0); Immature Granulocytes Auto 0.01 Thou/mm3 (0.00-0.00); Lymphocytes # (Auto) 0.8 Thou/mm3 (1.0-4.8); Lymphocytes % (Auto) 17 % (10-50); Mean Corpuscular HGB Conc 32.7 g/dl (31.0-37.0); Mean Corpuscular Hemoglobin 33.7 pg (25.0-35.0); Mean Corpuscular Volume 103 fL (80-100); Monocytes # (Auto) 0.5 Thou/mm3 (0.0-0.8); Monocytes % (Auto) 11 % (0-12); Neutrophils # (Auto) 3.0 Thou/mm3 (1.8-7.7); Neutrophils % (Auto) 68 % (37-80); Nucleated Red Blood Cell # 0.00 Thou/mm3 (0.00-0.00); Nucleated Red Blood Cell % 0 /100 WBC (0); Platelet Count 134 Thou/mm3 (140-440); RDW Standard Deviation 51.0 fL (35.1-43.9); Red Blood Count 3.77 Miln/mm3 (4.50-5.90); White Blood Count 4.5 Thou/mm3 (3.8-10.6)
[2024-10-23 13:50] LABS: Alanine Aminotransferase 10 U/L (10-49); Albumin, Serum 3.8 gm/dL (3.4-4.8); Albumin/Globulin Ratio 1.1 (1.2-2.2); Alkaline Phosphatase 118 U/L (46-116); Anion Gap 12 (7-16); Aspartate Amino Transferase 15 U/L (0-34); BUN/Creatinine Ratio 5 Ratio (12-20); Bilirubin,Total 0.7 mg/dL (0.3-1.2); Blood Urea Nitrogen 23 mg/dL (9-23); Calcium 10.2 mg/dL (8.3-10.6); Calcium (Corrected) 10.4 mg/dL (8.5-10.1); Carbon Dioxide 32.4 mMol/L (20.0-31.0); Chloride 94 mMol/L (98-107); Creatinine (Component) 4.9 mg/dL (0.6-1.3); Globulin 3.4 gm/dL (2.3-3.5); Glucose 127 mg/dL (74-106); Osmolality,Calculated 281 (275-295); Potassium 5.0 mMol/L (3.4-5.1); Sodium 138 mMol/L (136-145); Total Protein 7.2 gm/dL (5.7-8.2); eGFR 13 See Note
== END | disposition home or self-care (01) ==
LOC: COPL 12:19 → SCTO 12:29
PROVIDERS: PCP Family Medicine; Referring Provider Internal Medicine Hematology & Oncology; Visit Provider Internal Medicine Hematology & Oncology
DX: M89.8X9 Other specified disorders of bone, unspecified site (principal)
CPT/HCPCS: 36415; 80053; 85025

== ENCOUNTER 2024-10-28 09:31 | Emergency (ER) | payer MEDICAID, SELFPAY ==
[2024-10-28 09:58] VITALS: PULSE 78; RESP 17; O2SAT 99; BMI 35.5
[2024-10-28 10:39] VITALS: BP 128/84; PULSE 85; RESP 19; TEMP 36.4; O2SAT 100
--- NOTE | 2024-10-28 11:34 | EKG_ITS ---
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1960 Requested By: Joel Vasquez Order Number: [id number] Reading MD: Joel Vasquez Measurements Intervals [place] Rate: 85 P: GA: QRS: -45 QRSD: 105 T: 151 QT: 405 QTc: 484 Interpretive Statements SUPRAVENTRICULAR RHYTHM LEFT AXIS DEVIATION [QRS AXIS < -30] ANTEROSEPTAL MYOCARDIAL INFARCTION , OF INDETERMINATE AGE [40+ ms Q WAVE IN V1-V4] MODERATE T-WAVE ABNORMALITY, CONSIDER LATERAL ISCHEMIA [-0.1+ mV T-WAVE IN I/aVL/V5/V6] Compared to ECG 03/20/2024 16:43:35 Supraventricular rhythm now present Sinus rhythm no longer present Myocardial infarct finding still present T-wave abnormality still present Possible ischemia still present /store/S0/[id number]/ecg/[id number].pdf
--- NOTE | 2024-10-28 11:37 | EDNOTE_ITS ---
<Statement entered by Naty Kaur MD - 11/07/24 11:11> As co-signing physician, I was present and available for consult prn. I concur with the plan and care as documented by the midlevel provider. ED Syncope RME/HPI General Chief Complaint: Syncope / Near Syncope Stated Complaint: NEAR SYNCOPE Time Seen by Provider: 10/28/24 11:14 Arrival date/time: 10/28/24 09:31 RME / HPI RME / HPI narrative: 64-year-old male patient with significant history of hypertension diabetes mellitus, end-stage renal disease, was brought in by EMS for evaluation regarding hypotension. Apparently patient had dialysis today, finished 3.5 hours of dialysis, and developed hypotension, patient complained of occipital headache described as dull ache, severity mild. Patient denies any chest pain. Patient denies any vomiting denies any other complaints no medications taken prior to arrival. Related Data Home Medications ?Medication ?Instructions ?Recorded ?Confirmed gabapentin 400 mg capsule 800 mg PO BID PAIN 08/03/19 05/01/24 amiodarone 200 mg tablet 200 mg PO BID 10/19/2305/01 insulin glargine 100 unit/mL 12 unit subcut QAM 05/01/24 subcutaneous solution apixaban 2.5 mg tablet (Eliquis) 2.5 mg PO Q12H 05/01/24 midodrine 10 mg tablet 10 mg PO .bid 04/15/2405/01 cinacalcet 90 mg tablet 90 mg PO DAILY 05/01/2409/18 Previous Rx's ?Medication ?Instructions ?Recorded ferrous sulfate 325 mg (65 mg 325 mg PO QDAY 1 month # 30 tabs 10/19/23 iron) tablet patiromer calcium sorbitex 8.4 8.4 g PO DAILY #30 ea 0 03/22/24 gram oral powder packet (Veltassa) sennosides 8.6 mg tablet (Senna 8.6 mg PO QDAY #14 tab s 03/22/24 Lax) Allergies Allergy/AdvReac Type Severity Reaction Status Date / Time vancomycin Allergy Severe Hives Verified 05/08/24 00:48 Review of Systems Review of Systems Narrative Review of Systems: Review of system reviewed and within normal limits except mentioned in HPI ED Exam Narrative Physical exam: VITAL SIGNS: Reviewed. GENERAL APPEARANCE: Alert and interactive, follows commands, no acute distress, HEAD AND FACE: Non-traumatic. ENT: PERRL, pink conjunctivitis, eyelid no trauma, Mucous membrane moist. NECK: Supple, nontender, no nuchal rigidity. CHEST: No tenderness, no crepitus, no paradoxical movement, no retractions. Right chest dialysis catheter intact LUNGS: Clear, well ventilated, symmetric, no rales, no wheezing, no ronchi, no stridor, good breath sounds bilaterally. HEART: Regular rate, regular rhythm, no murmur, no gallops. ABDOMEN: Soft, positive bowel sounds, nondistended, no guarding, nontender, no rebound, no masses, RECTAL: Deferred. GENITAL: Deferred. NEUROLOGICAL: Gross motor function intact sensory function intact, Appropriate for age. MUSCULOSKELETAL: low back nontender, full range of motion. EXTREMITIES: Nontender, full range of motion. SKIN: Color pink, dry, no rash, no lacerations, no abrasions, no contusions. LYMPHATICS: Deferred. Course Quality Measures none Orders Category Date Time Status EKG (ED ONLY) *Do not use* NOW Care 10/28/24 11:36 Completed EKG (ED Only) Stat Exams 10/28/24 11:34 Draft CBC Stat Lab 10/28/24 11:52 Completed Comprehensive Metabolic Panel Stat Lab 10/28/24 11:52 Completed Partial Thromboplastin Time Stat Lab 10/28/24 11:52 Completed Troponin I Stat Lab 10/28/24 11:52 Completed Vital Signs Vital signs: Vital Signs Temperature 97.5 F 10/28/24 10:39 Pulse Rate 85 10/28/24 10:39 Respiratory Rate 19 10/28/24 10:39 Blood Pressure 128/84 10/28/24 10:39 Pulse Oximetry (%) 100 10/28/24 10:39 Oxygen Delivery Method Room Air 10/28/24 10:39 Syncope MDM Narrative MDM Narrative:: 64-year-old male patient with significant history of hypertension diabetes mellitus, end-stage renal disease, was brought in by EMS for evaluation regarding hypotension. Apparently patient had dialysis today, finished 3.5 hours of dialysis, and developed hypotension, patient complained of occipital headache described as dull ache, severity mild. Patient denies any chest pain. Patient denies any vomiting denies any other complaints no medications taken prior to arrival. Patient's laboratory workup is significant for end-stage renal disease, creatinine of 5.0, potassium is normal CBC unremarkable. EKG showed normal sinus rhythm, ventricular rate of 85 bpm, no ST segment ovation depression noted. Patient's blood pressure was noted to be stable in the ED, latest blood pressure 128/84 heart rate of 85. Patient is tolerating ambulation with no recurrence of symptoms. Patient stable for discharge home Patient data External records reviewed:: None Clinical information provided by:: patient Social determinants that could affect healthcare access:: none Patient has the following chronic illnesses:: ESRD, diabetes mellitus, hypertension How is presenting disease/condition affected by chronic disease/condition?: exacerbated by Evaluation data The following diagnostics were reviewed and interpreted by me:: lab results and EKG tracing(s) Lab and/or radiology exams considered but not ordered:: None Interpretation Summary: See results MDM Medications / Prescriptions Medications or Prescriptions considered but not ordered:: None Medication administrations:: None Consultations Consultation(s) initiated? (list below): No Diagnosis Syncope Differential Diagnosis: vasovagal syncope and dehydration Most likely diagnosis given after review of the tests above:: Near syncope, Admission Indicated Admission indicated?: not indicated Admission Request Was there a request for admission?: No Disposition Plan Disposition Plan: Discharge Discharge Attestation Discharge Attestation: The patient was given an opportunity to ask questions and understood the discharge instructions. Discharge instructions specifically effects, indications for sooner follow up or return to the emergency department, and the expected course of current diagnosis. Patient condition: Stable Discharge Plan Plan Patient Disposition: HOME (Self Care) Discharge Disposition comment: stable Prescriptions/Referrals Prescriptions/Med Rec: No Action gabapentin 400 MG capsule 800 mg PO BID insulin glargine 100 unit/mL Solution 12 unit SUBCUT QAM amiodarone 200 mg Tablet 200 mg PO BID ferrous sulfate 325 mg (65 mg iron) tablet 325 mg PO QDAY 30 Days Qty: 30 1RF cinacalcet 90 mg tablet 90 mg PO DAILY sennosides [Senna Lax] 8.6 mg Tablet 8.6 mg PO QDAY Qty: 14 0RF Veltassa 8.4 gram Powder In Packet 8.4 g PO DAILY Qty: 30 0RF midodrine 10 mg tablet 10 mg PO .bid Patient Comments: TAKE ONE TABLET BY MOUTH TWICE DAILY Eliquis 2.5 mg tablet 2.5 mg PO Q12H Referrals: No Primary/Family,Physician [Primary Care Provider] - In 1 week Problem List Clinical Impression: Near syncope Patient/Caregiver Discharge Instructions Discharge Activity: activity as tolerated Education Materials: What Is Syncope? Additional Instructions: Thank you for the opportunity for serving you today. You are stable for discharged . You are advised to: Follow-up with your PCP in 1 to 2 days Return to ED for worsening of symptoms Print Language: Slovenian Stand Alone Forms: Keli Award Info., Patient Portal Info Letter PA/BINDING MACHINE OPERATOR Supervising Physician PA/BINDING MACHINE OPERATOR Supervising Physician: MD Yoel
[2024-10-28 12:05] LABS: Basophils # (Auto) 0.1 Thou/mm3 (0.0-0.2); Basophils % (Auto) 1 % (0-2.5); Eosinophils # (Auto) 0.1 Thou/mm3 (0.0-0.5); Eosinophils % (Auto) 3 % (0-10); Hematocrit 36.8 % (41.0-53.0); Hemoglobin 12.1 g/dL (13.5-16.0); Immature Granulocytes Auto 0.01 Thou/mm3 (0.00-0.00); Lymphocytes # (Auto) 0.8 Thou/mm3 (1.0-4.8); Lymphocytes % (Auto) 16 % (10-50); Mean Corpuscular HGB Conc 32.9 g/dl (31.0-37.0); Mean Corpuscular Hemoglobin 34.0 pg (25.0-35.0); Mean Corpuscular Volume 103 fL (80-100); Monocytes # (Auto) 0.6 Thou/mm3 (0.0-0.8); Monocytes % (Auto) 11 % (0-12); Neutrophils # (Auto) 3.7 Thou/mm3 (1.8-7.7); Neutrophils % (Auto) 70 % (37-80); Nucleated Red Blood Cell # 0.00 Thou/mm3 (0.00-0.00); Nucleated Red Blood Cell % 0 /100 WBC (0); Platelet Count 120 Thou/mm3 (140-440); RDW Standard Deviation 50.8 fL (35.1-43.9); Red Blood Count 3.56 Miln/mm3 (4.50-5.90); White Blood Count 5.4 Thou/mm3 (3.8-10.6)
[2024-10-28 12:26] LABS: Alanine Aminotransferase 17 U/L (10-49); Albumin, Serum 3.8 gm/dL (3.4-4.8); Albumin/Globulin Ratio 1.1 (1.2-2.2); Alkaline Phosphatase 122 U/L (46-116); Anion Gap 9 (7-16); Aspartate Amino Transferase 20 U/L (0-34); BUN/Creatinine Ratio 4 Ratio (12-20); Bilirubin,Total 0.9 mg/dL (0.3-1.2); Blood Urea Nitrogen 22 mg/dL (9-23); Calcium 10.0 mg/dL (8.3-10.6); Calcium (Corrected) 10.2 mg/dL (8.5-10.1); Carbon Dioxide 33.3 mMol/L (20.0-31.0); Chloride 93 mMol/L (98-107); Creatinine (Component) 5.0 mg/dL (0.6-1.3); Estimated Creatinine Clearance 15.8 mL/min (>60); Globulin 3.6 gm/dL (2.3-3.5); Glucose 126 mg/dL (74-106); Osmolality,Calculated 275 (275-295); Potassium 4.7 mMol/L (3.4-5.1); Sodium 135 mMol/L (136-145); Total Protein 7.4 gm/dL (5.7-8.2); Troponin I 0.035 ng/mL (0.0-0.045); eGFR 12 See Note
[2024-10-28 12:30] LABS: Partial Thromboplastin Time 29.6 Seconds (22.0-36.0)
[2024-10-28 15:40] VITALS: BP 143/95; PULSE 91; RESP 18; TEMP 36.7; O2SAT 99
== END 2024-10-28 15:41 | disposition home or self-care (01) ==
PROVIDERS: Nurse Practitioner Family; Emergency Provider Emergency Medicine
DX: R55 Syncope and collapse (principal); E11.22 Type 2 diabetes mellitus with diabetic chronic kidney disease; I12.0 Hypertensive chronic kidney disease with stage 5 chronic kidney disease or end stage renal disease; N18.6 End stage renal disease; Z99.2 Dependence on renal dialysis
CPT/HCPCS: 36415; 80053; 81001; 84484; 85025; 85730; 93005; 99283

== ENCOUNTER → 2024-10-29 | Outpatient (CLI) | payer MEDICAID, SELFPAY ==
--- NOTE | 2024-10-29 10:00 | XR_ITS ---
Examination: CT abdomen, without intravenous contrast. CT pelvis, without intravenous contrast. CT abdomen, with intravenous contrast. CT pelvis, with intravenous contrast. 2-D sagittal coronal reconstructions. Date and time of exam:October 29, 2024 1018 hours, comparison August 14, 2023 INDICATIONS: Other specified disorders of bone, bone age 1 year, multiple myeloma, 3 mm osteolytic lesion T11, 17 mm 6 mm 4 mm osteolytic lesions L1, 25 mm osteolytic lesion right iliac bone on CT study August 14, 2023 CTDI: vol (mGy) 3.8 DLP: (mGycm) 1448 Technique: Multiple 3.0 axial images of the abdomen and pelvis without intravenous contrast, 3.0 mm slice thickness. Multiple 3.0 postcontrast images abdomen and pelvis also obtained, post intravenous injection 60 cc [id number] 2-D sagittal and coronal reconstructions. Low dose protocols were performed. One or more of the following dose reduction techniques were used; automated exposure control, adjustment of the mA and/or KV according to patient size, use of iterative reconstruction technique. Findings: Moderate enlargement cardiac contour Pneumonia both bases with mild loculated appearing left pleural disease Liver is irregular in contour Gallbladder is not visualized No pancreatic mass Atrophic kidneys with renal arterial calcifications and significant scarring No hydronephrosis or ureteral calculi Aorta normal size Normal appendix No bowel obstruction No abdominal or pelvic lymphadenopathy Contracted urinary bladder No prostatomegaly Severe osteopenia Stable osteolytic lesions in L1 Stable osteolytic lesion posterior right iliac bone Multiple new osteolytic lesions compared to CT pelvis July 09, 2023, including 10 mm in the right superior pubic ramus anterior margin of the acetabulum and 10 mm in the left superior pubic ramus anterior acetabular margin, 13 mm osteolytic lesion left femoral head IMPRESSION: Suspect primary hepatocellular disease Mild pneumonia both bases with small loculated left pleural fluid Atrophic kidneys, significant renal scar formation, no hydronephrosis No interval abdominal or pelvic lymphadenopathy Multiple osteolytic lesions in the pelvis compared to CT pelvis July 09, 2023
== END | disposition home or self-care (01) ==
PROVIDERS: Referring Provider Internal Medicine Hematology & Oncology; Visit Provider Internal Medicine Hematology & Oncology
DX: J18.9 Pneumonia, unspecified organism (principal); N26.1 Atrophy of kidney (terminal); M89.58 Osteolysis, other site
CPT/HCPCS: 74178; A4649; Q9967

== ENCOUNTER → 2024-11-17 | Outpatient (CLI) | payer MEDICAID, SELFPAY ==
[2024-11-17 10:48] LABS: Carcinoembryonic Antigen 4.6 ng/mL (0.0-5.0)
== END | disposition home or self-care (01) ==
LOC: SCTO 09:43
PROVIDERS: PCP Family Medicine; Referring Provider Internal Medicine Hematology & Oncology; Visit Provider Internal Medicine Hematology & Oncology
DX: M89.8X9 Other specified disorders of bone, unspecified site (principal)
CPT/HCPCS: 36415; 82378

== ENCOUNTER 2024-11-24 13:19 | Outpatient (RCR) | payer MEDICAID, SELFPAY ==
--- NOTE | 2024-11-29 22:27 | CTCFLWUP_ITS ---
Patient: VINCE QUILES : 1960 Page 3 of 5 FOLLOW UP NOTE DATE OF SERVICE: 11/24/2024 NAME: VINCE QUILES ACCOUNT: [id number] : 1960 AGE: 64 INTERVAL HISTORY: Vince presents for follow-up of osteolytic lesions. His history includes osteopenia, elevated PTH (>500), and atrophic kidneys. Recent CT scans (10/29/2024) showed progression of multiple osteolytic lesions in the pelvis, suspected hepatocellular disease, mild pneumonia with left effusion, and atrophic kidneys. Previous bone marrow biopsies (March, July 2024) were negative for myeloma. Plan includes bone lesion biopsy, myeloma labs, endocrinology referral for hyperparathyroidism, and hepatology referral for suspected hepatocellular disease. ONCOLOGY HISTORY: DIAGNOSIS: [ICD10] M89.8X9 Other specified disorders of bone, unspecified site Non-Cancer 0 0 1 Affirmed 3 DATE OF DIAGNOSIS: [ICD10] M89.8X9 Other specified disorders of bone, unspecified site Non-Cancer 0 0 1 Affirmed 3 STAGE/TNM: [ICD10] M89.8X9 Other specified disorders of bone, unspecified site Non-Cancer 0 0 1 Affirmed 3 TREATMENT HISTORY: ?? HISTORY OF PRESENT ILLNESS: History of Present Illness Vince is a patient with a history of osteolytic lesions who presents for follow-up of osteolytic lesions found on previous scans. He is here to review recent imaging results. The patient has been following with oncology for osteolytic lesions detected on scans. He completed a bone marrow biopsy in March, which showed normal results with no evidence of myeloma. A brain MRI and nuclear bone study were both negative. Vince has an unresolved bone problem and was noted to have elevated PTH (more than 500) in 2023. Subsequent bone marrow biopsies in February and July 2024 were negative. A bone density scan in July 2024 showed osteopenia in his lumbar spine and hip. Recent imaging studies have shown progression of Vince's condition. A CT scan on October 29, 2024, revealed suspected primary hepatocellular disease, mild pneumonia in both lung bases with a small loculated left effusion, atrophic kidneys without hydronephrosis, and multiple osteolytic lesions in the pelvis. These findings represent an increase in osteolytic lesions compared to a CT pelvis scan from June 2023. Additionally, a CT scan from September 22, 2024, showed more osteolytic lesions and possible hepatocellular disease. 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 - Osteopenia in lumbar spine and hip - Elevated parathyroid hormone (PTH) levels - Atrophic kidneys Surgical History - Bone marrow biopsy in March 2024 - Bone marrow biopsy on August 13, 2024 Objective Laboratory, Imaging, and Diagnostic Test Results - Date: 10/29/2024 - CT scan: Suspect primary hepatocellular disease, mild pneumonia in both bases with small loculated left effusion, atrophic kidneys, no hydronephrosis, multiple osteolytic lesions in the pelvis (compared to CT pelvis in June 2023) - Date: 09/22/2024 - CT scan: More osteolytic lesions and possible hepatocellular disease - Date: 08/13/2024 - Bone marrow biopsy: Negative, iron storage increased without ring sideroblast, normocellular marrow - Date: 07/31/2024 - Bone density scan: Osteopenia in lumbar spine and hip - Date: 03/2024 - Bone marrow biopsy: Normal, no evidence of myeloma - Date: 02/2024 - Brain MRI: Negative - Date: 11/2023 - CT scan: Circumscribed osteolytic lesions, 3 mm in the distal right femur - Date: 07/2023 - CT scan abdomen/pelvis: No cancer - Diagnostic bone study: No metastatic disease - Previous results: - PTH: >500 (2023) OTHER MEDICAL HISTORY/CONDITIONS: diabetic??end?stage?renal??chf fistula left arm eye lasic surg gallbladder FAMILY HISTORY: Patient?denies?family?cancer?history. SOCIAL HISTORY: Occupational?History:?disabled Education?Level:?Completed High School Marital?Status:? Tobacco?Pack?per?Day:?1 Tobacco?Use?Years:?15 ETOH Use:?etoh issues 15 clean / 13 yrs Drug?Note:?gladys Social History Note:?lives with his mother MEDICATIONS: 1. CINACALCET HCL - 90 mg Daily 2. Eliquis - 2.5 mg Twice a Day 3. gabapentin - 800 mg 1 tab Twice a Day 4. Lipitor - 10 mg 1 tab Daily 5. midodrine - 10 mg 1 tab Daily 6. sevelamer carbonate - 800 mg 1 tab Daily 7. Vitamin D3 - 1,000 unit 1 tab Daily Medications Last Reconciled by Argelia Beltrán MD on 11/24/2024 ALLERGIES: VANCOMYCIN HCL REVIEW OF SYSTEMS: A complete 14-point review of systems was performed and is negative except as noted in interval history. PHYSICAL EXAMINATION: VITAL SIGNS: Temperature?98.3, B/P?153/90, Oxygen?Saturation?94% Weight?212?lbs PAIN: 0 - No pain ECOG Performance Status: 0 - Asymptomatic and fully active GENERAL APPEARANCE: Appears well, in no apparent distress, appropriately interactive. HEENT: Normocephalic, no temporal wasting, normal conjunctiva, no scleral icterus, normal hearing, lips without lesions, neck normal range of motion. CARDIOVASCULAR: Not assessed. PULMONARY: Normal respiratory effort, no respiratory distress or use of accessory muscles, speaking in full sentences, no tachypnea. EXTREMITIES: No pedal edema or cyanosis. SKIN: Normal skin appearance. NEUROLOGIC: Alert and oriented x4. PSHYCHIATRIC: Appropriate affect, mood normal, behavior normal, intact thought and speech. LABORATORY DATA: I have personally reviewed and interpreted each of the patient?s relevant lab tests, abnormal findings are below: Date ASSESSMENT/PLAN: Vince is seen in oncology clinic for follow-up of osteolytic lesions detected on previous imaging studies. Osteolytic lesions Assessment: Patient has multiple osteolytic lesions in the pelvis identified on CT scan from 10/29/2024, with progression compared to CT pelvis from June 2023. Additional 3mm osteolytic lesion noted in distal right femur in November 2023, with more lesions identified on CT scan from 09/22/2024. Bone marrow biopsies performed in March and August 13, 2024 were negative for myeloma, showing normocellular marrow with increased iron storage without ring sideroblasts. Brain MRI in February 2024 was negative. Nuclear bone study in 08/25/2023 showed no metastatic disease. Bone density study from 07/31/2024 shows osteopenia in lumbar spine and hip. Patient has elevated PTH greater than 500 in 2023. The etiology of the osteolytic lesions remains unclear despite extensive workup. Plan: - Bone lesion biopsy to evaluate for malignancy - Myeloma labs (patient has not previously completed these) - Follow-up in clinic in 4 weeks to review results Hyperparathyroidism Assessment: Patient has elevated PTH greater than 500 in 2023, which may be contributing to the osteolytic lesions and osteopenia. Plan: - Referral to endocrinology for evaluation and management of possible hyperparathyroidism Suspected hepatocellular disease Assessment: CT scan from 10/29/2024 shows suspect primary hepatocellular disease. Additional imaging from 09/22/2024 also suggests possible hepatocellular disease. Plan: - Referral to [facility] for evaluation and management Pneumonia Assessment: CT scan from 10/29/2024 shows mild pneumonia at both lung bases with small loculated left pleural effusion. ORDERS: Order # Description Ordering Physician Date Condition Diagnosis Account Number Status Statused By (Full Name) Statused By (Initial) Status Date User Defined Data [id number] Rafa, [facility] 11/24/2024 REFER TO RADIOLOGY to biopsy of lytic lesion to diagnose (M89.8X9) Other specified disorders of bone, unspecified site ? Approved Rafa, Jose C 11/24/2024 ? [id number] [facility] 11/24/2024 refer to hepatology for cirrhosis and follow up (M89.8X9) Other specified disorders of bone, unspecified site ? Approved RafaJose C [place] 11/24/2024 ? [id number] Hep A, B and C panel [facility] 11/24/2024 ? (M89.8X9) Other specified disorders of bone, unspecified site ? Approved RafaJose C [place] 11/24/2024 ? [id number] [facility] 11/24/2024 refer to endocrinology for hyperparathyroidism (M89.8X9) Other specified disorders of bone, unspecified site ? Approved RafaJose C [place] 11/24/2024 ? [id number] MRI + Abdomen [facility] 11/24/2024 mri liver with contrast to evaluate liver mass (M89.8X9) Other specified disorders of bone, unspecified site ? Approved RafaJose C [place] 11/24/2024 ? [id number] Serum Protein Electrophoresis + Serum Immunofixation Electrophoresis + Beta-2 Microglobulin + Quant Immunoglobulins + Free kappa and lambda light chains plus ratio, quantitative RafaWilfredo [place] 11/24/2024 ? (M89.8X9) Other specified disorders of bone, unspecified site ? [facility] ? [id number] [facility]aErwin [place] 11/24/2024 PTH level (M89.8X9) Other specified disorders of bone, unspecified site ? Approved [facility] 11/24/2024 ? [id number] [facility] 11/24/2024 refer to GI for colonoscopy (M89.8X9) Other specified disorders of bone, unspecified site ? Approved [facility] 11/24/2024 ? [id number] [facility] ? (M89.8X9) Other specified disorders of bone, unspecified site ? [facility] 11/24/2024 ? RETURN TO CLINIC: I reviewed the diagnosis, prognosis, and recommended treatment/procedure options with the patient (and/or their legal senior human resources representative), including the potential benefits, risks, side effects and alternative therapies. We also discussed the option of no treatment and the possibility of clinical trial participation, if applicable. All questions were addressed, and they demonstrated understanding. They provided informed consent to proceed with the proposed plan of care. BILLING AND COMPLIANCE: I reviewed external records from providers outside my specialty as summarized above. I spent a total of 50 minutes on this patient?s care on the day of their visit excluding time spent related to any billed procedures. This time includes time spent with the patient as well as time spent documenting in the medical record, reviewing patients records and tests, obtaining history, placing orders, communicating with other healthcare professionals, counseling the patient, family or caregiver, and/or care coordination for the diagnoses above. Electronically Signed by: Jose C Craig MD T: 10:25 PM CC: PCP: Yared Linares Referring: Yared Linares This document was completed utilizing speech recognition software. Grammatical errors, random word insertions, pronoun errors, and incomplete sentences are an occasional consequence of this system due to software limitations, ambient noise, and hardware issues. Any formal questions or concerns about the content, text or information contained within the body of this dictation should be directly addressed to the provider for clarification.
== END 2024-11-24 23:59 | disposition home or self-care (01) ==
LOC: SCTC 13:19
PROVIDERS: PCP Family Medicine; Referring Provider Family Medicine; Visit Provider Internal Medicine Hematology & Oncology
DX: M89.59 Osteolysis, multiple sites (principal); E21.3 Hyperparathyroidism, unspecified; J18.9 Pneumonia, unspecified organism; J90 Pleural effusion, not elsewhere classified
CPT/HCPCS: 99212; G0463

== ENCOUNTER → 2024-12-08 | Outpatient (CLI) | payer MEDICAID, SELFPAY ==
[2024-12-08 11:38] LABS: Parathyroid Hormone Intact 359.3 pg/ml (18.5-88.0)
[2024-12-08 14:23] LABS: Hepatitis A Antibody IgM Non Reactive (Non React); Hepatitis B Core Antibody IgM Non Reactive (Non React); Hepatitis B Surface Antigen Non Reactive (Non React); Hepatitis C Antibody Non Reactive (Non React)
[2024-12-12 17:51] LABS: Albumin 3.9 g/dL (3.8-4.8); Alpha-1-Globulin 0.3 g/dL (0.2-0.3); Alpha-2-Globulin 0.6 g/dL (0.5-0.9); Beta-1-Globulin 0.4 g/dL (0.4-0.6); Beta-2-globulin 0.5 g/dL (0.2-0.5); Gamma Globulin 1.8 g/dL (0.8-1.7); Immunoglobulin A 660 mg/dL (70-320); Immunoglobulin G 1979 mg/dL (600-1540); Kappa Light Chain, Free 425.2 mg/L (3.3-19.4); Lambda Light Chain, Free 262.4 mg/L (5.7-26.3)
[2024-12-14 06:38] LABS: Beta 2 Microglobulin 31.70 mg/L (< OR = 2.51); Immunoglobulin M 92 mg/dL (50-300); Kappa/Lambda, Free Ratio 1.62 (0.26-1.65); Protein, total, serum 7.6 g/dL (6.1-8.1)
== END | disposition home or self-care (01) ==
LOC: SCTO 10:18
PROVIDERS: PCP Family Medicine; Referring Provider Internal Medicine Hematology & Oncology; Visit Provider Internal Medicine Hematology & Oncology
DX: M89.8X9 Other specified disorders of bone, unspecified site (principal)
CPT/HCPCS: 36415; 80074; 82232; 82784; 83521; 83970; 84155; 84165; 86334

== ENCOUNTER 2024-12-10 08:45 | Day surgery (SDC) | payer MEDICAID, SELFPAY ==
[2024-12-08 08:50] VITALS: BMI 38.7
[2024-12-08 10:26] LABS: Basophils # (Auto) 0.0 Thou/mm3 (0.0-0.2); Basophils % (Auto) 1 % (0-2.5); Eosinophils # (Auto) 0.1 Thou/mm3 (0.0-0.5); Eosinophils % (Auto) 2 % (0-10); Hematocrit 37.6 % (41.0-53.0); Hemoglobin 12.6 g/dL (13.5-16.0); Immature Granulocytes Auto 0.01 Thou/mm3 (0.00-0.00); Lymphocytes # (Auto) 1.0 Thou/mm3 (1.0-4.8); Lymphocytes % (Auto) 18 % (10-50); Mean Corpuscular HGB Conc 33.5 g/dl (31.0-37.0); Mean Corpuscular Hemoglobin 34.6 pg (25.0-35.0); Mean Corpuscular Volume 103 fL (80-100); Monocytes # (Auto) 0.4 Thou/mm3 (0.0-0.8); Monocytes % (Auto) 8 % (0-12); Neutrophils # (Auto) 3.7 Thou/mm3 (1.8-7.7); Neutrophils % (Auto) 71 % (37-80); Nucleated Red Blood Cell # 0.00 Thou/mm3 (0.00-0.00); Nucleated Red Blood Cell % 0 /100 WBC (0); Platelet Count 140 Thou/mm3 (140-440); RDW Standard Deviation 53.1 fL (35.1-43.9); Red Blood Count 3.64 Miln/mm3 (4.50-5.90); White Blood Count 5.2 Thou/mm3 (3.8-10.6)
[2024-12-08 10:30] LABS: Alanine Aminotransferase 12 U/L (10-49); Albumin, Serum 4.1 gm/dL (3.4-4.8); Albumin/Globulin Ratio 1.1 (1.2-2.2); Alkaline Phosphatase 158 U/L (46-116); Anion Gap 13 (7-16); Aspartate Amino Transferase 17 U/L (0-34); BUN/Creatinine Ratio 5 Ratio (12-20); Bilirubin,Total 0.4 mg/dL (0.3-1.2); Blood Urea Nitrogen 40 mg/dL (9-23); Calcium 9.3 mg/dL (8.3-10.6); Calcium (Corrected) 9.3 mg/dL (8.5-10.1); Carbon Dioxide 26.0 mMol/L (20.0-31.0); Chloride 97 mMol/L (98-107); Creatinine (Component) 7.4 mg/dL (0.6-1.3); Estimated Creatinine Clearance 10.4 mL/min (>60); Globulin 3.9 gm/dL (2.3-3.5); Glucose 125 mg/dL (74-106); Osmolality,Calculated 282 (275-295); Potassium 5.5 mMol/L (3.4-5.1); Sodium 136 mMol/L (136-145); Total Protein 8.0 gm/dL (5.7-8.2); eGFR 8 See Note
[2024-12-08 10:31] LABS: INR 1.1 (0.9-1.3); Partial Thromboplastin Time 28.1 Seconds (22.0-36.0); Prothrombin Time 11.8 Seconds (9.0-12.2)
--- NOTE | 2024-12-09 13:12 | SUR.PREOP ---
Pt's daughter Kasia notified to bring pt at 0830 tomorrow.
--- NOTE | 2024-12-09 13:18 | SUR.PREOP ---
Cardiac records reviewed reviewed with Dr Ramos.
[2024-12-10] VITALS (10 sets, daily range): BP systolic 132–177; BP diastolic 66–75; PULSE 58–79; RESP 12–20; TEMP 36.1–36.2; O2SAT 93–99; BMI 38.7
[2024-12-10 09:22] LABS: Potassium 5.0 mMol/L (3.4-5.1)
[2024-12-10] MEDS: ALBUTEROL RT 2.5 MG/3 ML NEBU INH (09:58)
--- NOTE | 2024-12-10 13:23 | PD.SUROPNT ---
Date of Procedure 12/10/24 Pre Op Diagnosis End-stage renal disease and the need for permanent dialysis access Post Op Diagnosis Same as pre-op diagnosis Procedure Creation of arteriovenous fistula between the brachial artery and the basilic vein of the right upper Findings There was good flow in the fistula. There appeared to be an area of stricture in the lower third portion of the vein, the area was dilated with dilators and there was marked improvement in the diameter Procedure Description With the patient supine under adequate general anesthesia the right upper extremity sterilely prepped and draped. A timeout was performed. The operation done by using B-mode ultrasound imaging with a venous tourniquet in place to ensure sufficient usability of the basilic vein and the brachial artery. Basilic vein was widely patent with the somewhat of a narrowed area in the midportion of the vein but still not more than 40%. At this point a slightly oblique incision was then made on the medial aspect of the elbow and the subcutaneous tissues were dissected to expose the basilic vein which was ligated distally and mobilized. Serial dilators were used to try to improve the diameter and the lower third portion of the vein which did except a 4 mm dilator without difficulty. The dissection was then deepened through the bicipital aponeurosis to expose the brachial artery. Brachial artery was then crossclamped proximally distally lustral electrocautery is made. The vein was then cut to size and sewn to the artery with a combination of 7-0 running and interrupted Prolene sutures. Before completion the artery was forward flushed and back flushed and the vein was back flushed. The anastomotic area was irrigated with heparin saline and the anastomosis was completed and flow was established. There was good flow in the fistula. When hemostasis was obtained the wound was closed in layers with 3-0 Vicryl the subcutaneous tissues and 4 Monocryl subcuticular skin closure. The patient woke up from anesthesia and was moved to recovery in stable condition Anesthesia other (Laryngeal mask anesthesia) Implants None Pathology / specimen None Estimated Blood Loss 75 Condition Stable Disposition PACU Surgeon Skyler Baxter MD Surgical Staff Operation Date: 12/10/24 11:45 Case Staff Anesthesiologist: Morris Negro RN First Assistant: Ariela Yepez
--- NOTE | 2024-12-10 13:33 | SUR.PHASEI ---
1333: Pt. wakes to name then drifts back to sleep, vitals stable, breathing unlabored, no complaint of pain or nausea, dressing to right arm CDI, no active bleed noted, bruit and thrill present to right AV fistular, bilateral radial pulses strong and regular, report received from MD Negro and Amada LEMON.
[2024-12-10] MEDS: fentaNYL CIT INJ 50 mCg/ML AMP 2ML 25 MCG IVP ×2 (14:00→14:12)
--- NOTE | 2024-12-10 14:57 | SUR.PHASEII ---
1457: Pt. AAOx4, vitals stable, breathing unlabored, no complaint of pain or nausea, dressing to right arm CDI, no active bleed noted, bruit and thrill present to AV Fistula, bilateral radial pulses strong and regular, pt. tolerated sips of water well, pt. ambulated to wheelchair with steady gait and no assist, no complications. Gave discharge instructions to the pt. and his ride in faroese, per pt. request, both verbalized understanding and had no further questions. Pt. left with all personal belongings.
== END 2024-12-10 14:57 | disposition home or self-care (01) ==
PROVIDERS: Anesthesiology; PCP Family Medicine; Referring Provider Surgery Vascular Surgery; Visit Provider Surgery Vascular Surgery
PROC: (CPT 36825; principal; 2024-12-10 11:30)
DX: N18.6 End stage renal disease (principal)
CPT/HCPCS: 36821; 36415; 80053; 84132; 85025; 85610; 85730; A4217; A4649; J0131; J0690; J1100; J1644; J2250; J2405; J2440; J2704; J3010; J3490

== ENCOUNTER → 2025-01-06 | Outpatient (CLI) | payer MEDICAID, SELFPAY ==
[2025-01-06 14:22] VITALS: BMI 37.0
--- NOTE | 2025-01-06 14:50 | PC.NURSE ---
patient scheduled for ct guided iliac bone biopsy for tomorrow 01/07/25 and took eliquis yesterday 01/05/25, Dr. Peters notified and cancelled procedure for tomorrow. Procedure rescheduled for January 12, 2025 at 0930, patient called back and made aware.
[2025-01-06 15:00] LABS: Basophils # (Auto) 0.0 Thou/mm3 (0.0-0.2); Basophils % (Auto) 1 % (0-2.5); Eosinophils # (Auto) 0.1 Thou/mm3 (0.0-0.5); Eosinophils % (Auto) 3 % (0-10); Hematocrit 36.6 % (41.0-53.0); Hemoglobin 12.3 g/dL (13.5-16.0); Immature Granulocytes Auto 0.01 Thou/mm3 (0.00-0.00); Lymphocytes # (Auto) 0.9 Thou/mm3 (1.0-4.8); Lymphocytes % (Auto) 18 % (10-50); Mean Corpuscular HGB Conc 33.6 g/dl (31.0-37.0); Mean Corpuscular Hemoglobin 35.2 pg (25.0-35.0); Mean Corpuscular Volume 105 fL (80-100); Monocytes # (Auto) 0.5 Thou/mm3 (0.0-0.8); Monocytes % (Auto) 10 % (0-12); Neutrophils # (Auto) 3.5 Thou/mm3 (1.8-7.7); Neutrophils % (Auto) 69 % (37-80); Nucleated Red Blood Cell # 0.00 Thou/mm3 (0.00-0.00); Nucleated Red Blood Cell % 0 /100 WBC (0); Platelet Count 144 Thou/mm3 (140-440); RDW Standard Deviation 55.6 fL (35.1-43.9); Red Blood Count 3.49 Miln/mm3 (4.50-5.90); White Blood Count 5.0 Thou/mm3 (3.8-10.6)
[2025-01-06 15:09] LABS: INR 1.1 (0.9-1.3); Partial Thromboplastin Time 27.6 Seconds (22.0-36.0); Prothrombin Time 11.8 Seconds (9.0-12.2)
== END | disposition home or self-care (01) ==
LOC: SLAB 01-14 08:02
PROVIDERS: Radiology Diagnostic Radiology; PCP Family Medicine; Referring Provider Internal Medicine Hematology & Oncology; Visit Provider Internal Medicine Hematology & Oncology
DX: M89.8X9 Other specified disorders of bone, unspecified site (principal)
CPT/HCPCS: 36415; 77012; 82565; 84520; 85025; 85610; 85730; C1729; C1769

== ENCOUNTER 2025-01-12 07:48 | Outpatient (CLI) | payer MEDICAID, SELFPAY ==
[2025-01-11 12:30] LABS: Basophils # (Auto) 0.1 Thou/mm3 (0.0-0.2); Basophils % (Auto) 1 % (0-2.5); Eosinophils # (Auto) 0.2 Thou/mm3 (0.0-0.5); Eosinophils % (Auto) 3 % (0-10); Hematocrit 38.7 % (41.0-53.0); Hemoglobin 13.1 g/dL (13.5-16.0); Immature Granulocytes Auto 0.01 Thou/mm3 (0.00-0.00); Lymphocytes # (Auto) 1.1 Thou/mm3 (1.0-4.8); Lymphocytes % (Auto) 21 % (10-50); Mean Corpuscular HGB Conc 33.9 g/dl (31.0-37.0); Mean Corpuscular Hemoglobin 36.0 pg (25.0-35.0); Mean Corpuscular Volume 106 fL (80-100); Monocytes # (Auto) 0.5 Thou/mm3 (0.0-0.8); Monocytes % (Auto) 10 % (0-12); Neutrophils # (Auto) 3.3 Thou/mm3 (1.8-7.7); Neutrophils % (Auto) 65 % (37-80); Nucleated Red Blood Cell # 0.00 Thou/mm3 (0.00-0.00); Nucleated Red Blood Cell % 0 /100 WBC (0); Platelet Count 132 Thou/mm3 (140-440); RDW Standard Deviation 55.8 fL (35.1-43.9); Red Blood Count 3.64 Miln/mm3 (4.50-5.90); White Blood Count 5.1 Thou/mm3 (3.8-10.6)
[2025-01-11 12:34] LABS: INR 1.1 (0.9-1.3); Partial Thromboplastin Time 28.6 Seconds (22.0-36.0); Prothrombin Time 11.7 Seconds (9.0-12.2)
[2025-01-11 12:35] LABS: Blood Urea Nitrogen 22 mg/dL (9-23); Creatinine (Component) 4.8 mg/dL (0.6-1.3); eGFR 13 See Note
[2025-01-12] VITALS (7 sets, daily range): BP systolic 123–145; BP diastolic 78–92; PULSE 69–85; RESP 12–24; TEMP 36.8–37; O2SAT 93–100
--- NOTE | 2025-01-12 09:00 | XR_ITS ---
Examination: CT pelvis without intravenous contrast. 2-D sagittal and coronal reconstructions. Date and time of exam: January 12, 2025, 0818 hours INDICATIONS: Diagnosis multiple myeloma, renal failure, multiple osteolytic pelvic lesions on CT abdomen/pelvis 10/29/2024 CTDI: vol (mGy) : 9.27 DLP: (mGycm) : 329 Technique: Multiple 3 mm axial sections of the pelvis have been obtained with the 64 slice high resolution scanner. 2-D sagittal and coronal reconstructions. Low dose protocols were performed. One or more of the following dose reduction techniques were used; automated exposure control, adjustment of the mA and/or KV according to patient size, use of iterative reconstruction technique. Findings: Overall pronounced osteopenia Well-defined osteolytic lesion posterior right iliac bone, 24 mm Subtle osteolytic lesions L5, S1, left hip in the femoral neck region Contracted urinary bladder Normal seminal vesicles No prostatomegaly No pelvic lymphadenopathy IMPRESSION: 24 mm well-defined osteolytic lesion posterior right iliac bone
--- NOTE | 2025-01-12 09:30 | XR_ITS ---
Examination: CT-guided percutaneous bone biopsy deep, posterior right iliac osteolytic lesion CT pelvis without intravenous contrast Date and time of procedure: January 12, 2025, 0927 hours INDICATIONS: CT abdomen pelvis 10/29/2024 multiple osteolytic lesions in the pelvis including posterior right iliac bone Informed consent provided. A timeout was completed verifying correct patient, procedure, site and positioning. . Technique: Axial 3 mm sections were obtained for localization of the osteolytic bone lesion posterior right iliac spine. Appropriate area is marked. The patient's site was prepped and draped in sterile fashion Maximal sterile barrier technique utilized, including hand hygiene Local anesthesia was obtained with 1% lidocaine. Low dose protocols were performed. One or more of the following dose reduction techniques were used; automated exposure control, adjustment of the mA and/or KV according to patient size, use of iterative reconstruction technique. Utilizing CT fluoroscopic guidance 14-gauge bone biopsy needle placed in the osteolytic lesion posterior right pelvis, 6 cc marrow aspirate obtained placed in preservative and 5 cm bone core obtained placed in preservative Patient appears in stable condition during this procedure. At completion of the procedure, the patient is in satisfactory condition. Estimated blood loss 2 cc Complete pathology report to follow. Impression: Successful CT-guided percutaneous bone biopsy deep, posterior right iliac osteolytic lesion
[2025-01-12] MEDS: fentaNYL CIT INJ 50 mCg/ML AMP 2ML 75 MCG IVP (09:37)
--- NOTE | 2025-01-12 10:47 | PC.NURSE ---
Patients daughter dimitri at bedside. Instructions given to daughter and patient. Patient wanted to walk out with walker instead of wheelchair accompanied by daughter and myself.. Patient AAOX3, vss.
== END 2025-01-12 10:45 | disposition home or self-care (01) ==
LOC: SCAT 07:48 → SIRX 07:49
PROVIDERS: Radiology Diagnostic Radiology; PCP Internal Medicine Hematology & Oncology; Referring Provider Internal Medicine Hematology & Oncology; Visit Provider Internal Medicine Hematology & Oncology
DX: M89.58 Osteolysis, other site (principal)
CPT/HCPCS: 20220; 36415; 72192; 77012; 82565; 84520; 85025; 85610; 85730; J3010

== ENCOUNTER → 2025-01-27 | Outpatient (CLI) | payer MEDICAID, SELFPAY ==
[2025-01-11 10:55] LABS: Basophils # (Auto) 0.1 Thou/mm3 (0.0-0.2); Basophils % (Auto) 1 % (0-2.5); Eosinophils # (Auto) 0.2 Thou/mm3 (0.0-0.5); Eosinophils % (Auto) 4 % (0-10); Hematocrit 38.9 % (41.0-53.0); Hemoglobin 13.2 g/dL (13.5-16.0); Immature Granulocytes Auto 0.03 Thou/mm3 (0.00-0.00); Lymphocytes # (Auto) 1.1 Thou/mm3 (1.0-4.8); Lymphocytes % (Auto) 21 % (10-50); Mean Corpuscular HGB Conc 33.9 g/dl (31.0-37.0); Mean Corpuscular Hemoglobin 35.5 pg (25.0-35.0); Mean Corpuscular Volume 105 fL (80-100); Monocytes # (Auto) 0.5 Thou/mm3 (0.0-0.8); Monocytes % (Auto) 8 % (0-12); Neutrophils # (Auto) 3.6 Thou/mm3 (1.8-7.7); Neutrophils % (Auto) 66 % (37-80); Nucleated Red Blood Cell # 0.00 Thou/mm3 (0.00-0.00); Nucleated Red Blood Cell % 0 /100 WBC (0); Platelet Count 122 Thou/mm3 (140-440); RDW Standard Deviation 54.6 fL (35.1-43.9); Red Blood Count 3.72 Miln/mm3 (4.50-5.90); White Blood Count 5.5 Thou/mm3 (3.8-10.6)
[2025-01-11 11:13] LABS: Alanine Aminotransferase 12 U/L (10-49); Albumin, Serum 4.1 gm/dL (3.4-4.8); Albumin/Globulin Ratio 1.2 (1.2-2.2); Alkaline Phosphatase 169 U/L (46-116); Anion Gap 11 (7-16); Aspartate Amino Transferase 20 U/L (0-34); BUN/Creatinine Ratio 4 Ratio (12-20); Bilirubin,Total 0.6 mg/dL (0.3-1.2); Blood Urea Nitrogen 21 mg/dL (9-23); Calcium 9.9 mg/dL (8.3-10.6); Calcium (Corrected) 9.9 mg/dL (8.5-10.1); Carbon Dioxide 29.6 mMol/L (20.0-31.0); Chloride 96 mMol/L (98-107); Creatinine (Component) 4.7 mg/dL (0.6-1.3); Globulin 3.4 gm/dL (2.3-3.5); Glucose 143 mg/dL (74-106); Osmolality,Calculated 278 (275-295); Potassium 4.6 mMol/L (3.4-5.1); Sodium 137 mMol/L (136-145); Total Protein 7.5 gm/dL (5.7-8.2); eGFR 13 See Note
--- NOTE | 2025-01-27 09:30 | XR_ITS ---
EXAMINATION: MRI abdomen with intravenous contrast TECHNIQUE: Multiple axial coronal MRI abdomen images post intravenous administration 6 cc gadolinium INDICATIONS: Diagnosis other specified disorders of bone, unspecified site, multiple myeloma, osteolytic lesions on CT examination August 14, 2023, primary basilar disease on CT abdomen 10/29/2024 Date and time: 73, 2024, 1210 hours, comparison CT pelvis January 12, 2025, CT abdomen pelvis 10/29/2024 FINDINGS: The images are significantly degraded by patient motion No abnormal enhancing liver or splenic lesions No intra or extrahepatic biliary tract dilatation No pancreatic mass or dilated pancreatic duct Normal adrenal glands Atrophic kidneys, bilateral benign renal cysts, the largest left kidney 25 mm Aorta normal size No abdominal lymphadenopathy No ascites No bowel obstruction There are no sagittal images to adequately assess the vertebral bodies There is an osteolytic lesion right L1 vertebral body measuring 16 mm IMPRESSION: No enhancing liver or splenic lesions No abdominal lymphadenopathy No intra or extrahepatic biliary tract dilatation Atrophic kidneys, no hydronephrosis 16 mm osteolytic lesion L1 vertebral body
== END | disposition home or self-care (01) ==
LOC: SMRI 09:05
PROVIDERS: PCP Family Medicine; Referring Provider Internal Medicine Hematology & Oncology; Visit Provider Internal Medicine Hematology & Oncology
DX: N26.1 Atrophy of kidney (terminal) (principal); M89.58 Osteolysis, other site; M89.8X9 Other specified disorders of bone, unspecified site
CPT/HCPCS: 36415; 74182; 80053; 85025; A9577